=== PATIENT | female | born 1970 | race Caucasian/White ===

== ENCOUNTER 2023-07-28 22:31 | Emergency (ER) | payer OTHER, SELFPAY ==
--- NOTE | ~2023-07-28 | US_ITS ---
EXAMINATION: US ABDOMEN LIMITED CLINICAL INFORMATION: Pain.. COMPARISON: None available. TECHNIQUE: Real-time imaging of the right upper quadrant abdominal viscera. FINDINGS: PANCREAS: Not assessed. LIVER: The visualized portions of the liver are within normal limits. There is no evidence for intrahepatic biliary duct dilatation GALLBLADDER: The gallbladder is normally distended. Numerous mobile gallstones are noted. There is no gallbladder wall thickening or pericholecystic fluid. COMMON BILE DUCT: Normal in caliber measuring 0.2 cm in diameter. RIGHT KIDNEY: The visualized right kidney is unremarkable. FREE FLUID: None. US/US abdomen limited IMPRESSION: Cholelithiasis without sonographic evidence of acute cholecystitis.
--- NOTE | 2023-07-28 22:34 | ECG_ITS ---
Test Reason : chest pain Blood Pressure : / mmHG Vent. Rate : 079 BPM Atrial Rate : 079 BPM P-R Int : 142 ms QRS Dur : 076 ms QT Int : 392 ms P-R-T Axes : 077 059 046 degrees QTc Int : 449 ms Normal sinus rhythm with sinus arrhythmia Septal infarct , age undetermined Abnormal ECG No previous ECGs available Referred By: Generic ED Physician Electronically Signed By:Gil Williamson
[2023-07-28 22:39] VITALS: BP 148/99; PULSE 77; RESP 16; TEMP 36.5; O2SAT 100; BMI 24.4
--- NOTE | 2023-07-28 23:15 | PC.NURSE ---
Pt is a 52 y/o female who presents for evaluation of epigastric pain that radiates up into chest when lying down. Pain was sudden onset this evening around 1930 hours and there has been no similar episodes reported in the past, rated 27/10. No history of gallblader problems, kidney stones, acid reflux, or NV. Pain is accompanied by some nausea and a headache that has been ongoing since yesterday. No vomiting, recent illness/fever, or trauma. Food and fluid intake WNL for pt and no problems voiding reported. No other complaints reported. Pt took Carmine and tums this evening with no relief of symptoms. Motrin yesterday for headache with no relief. Last food intake was some chicken and some soup, nothing greasing/fatty. Pt has been taking Vigovi for wt loss since October.
--- NOTE | 2023-07-28 23:24 | ED.GENADULT ---
[facility] - General Adult General Chief complaint: General Medical Stated complaint: abd pain, chest pain when reclined Time Seen by Provider: 07/28/23 23:09 Source: patient Mode of arrival: ambulatory History of Present Illness HPI narrative: 52-year-old female who presents with onset epigastric pain and discomfort that began at approximately 19:30 this evening approximately 2 hours after having eaten dinner and has a significant past medical history of currently taking weight loss medication since October. She otherwise denies any underlying medical conditions, is not on prescription medications and has no family history of cardiac disease or sudden cardiac . Patient also reports a foul taste. Although she does report improved symptoms with leaning forward. Related Data Allergies Allergy/AdvReac Type Severity Reaction Status Date / Time No Known Allergies Allergy Verified 07/28/23 22:38 Review of Systems Review of Systems: Pertinent positives and negatives as stated in the [facility] Past Medical History Source: nursing notes reviewed Onset Date is defined in the Problem List Problems that require an onset date and time if occurred within 24 hrs of arrival to the ED Aortic Dissection and Rupture; Neurologic impairment; Cardiopulmonary Arrest; Endotracheal Intubation; Insertion or Replacement of Mechanical Circulatory Assist Device Social History Social History Advance Directives: No Advance Directives Information Provided: Yes Physical Exam ED Vital Signs: Vital Signs - 24 hr 07/28/23 22:39 Temperature 97.7 F Pulse Rate 77 Respiratory Rate 16 Blood Pressure 148/99 H Pulse Oximetry 100 Oxygen Delivery Method Room Air BMI result Body Mass Index 24.4 VITAL SIGNS: Reviewed. GENERAL: Well developed, well nourished, in no acute distress. HEAD: Normocephalic/atraumatic EYES: PERRLA, EOMI EARS: Ext canals without abnormality NOSE: Nares patent bilateral OROPHARYNX: no oral lesions noted, posterior pharynx clear NECK: Supple, no adenopathy LUNGS: Normal breath sounds. No adventitious sounds or accessory muscle use. SpO2<100> CARDIOVASCULAR: Regular rate and rhythm without noted murmurs ABDOMEN: Soft, Epigastric/RUQ Pain, non-distended with bowel sounds. MUSCULOSKELETAL: No tenderness, deformities, or effusions noted on gross inspection. EXTREMITIES: No cyanosis, clubbing or edema. SKIN: Inspection of the skin reveals no rashes NEUROLOGIC: Alert and oriented x 4. Strength and sensation to light touch were grossly intact x 4. BEDSIDE ULTRASOUND: Distended gallbladder with stones appreciated, no thickened gallbladder wall or pericholecystic fluid noted, Correa's negative. Medical Decision Making Medical Decision Making [facility] Narrative: 2315: 52-year-old female with history and clinical presentation, DDX: GERD, cholecystitis, pancreatitis, less likely ACS or choledocholithiasis. Reviewed all investigations and hematologic indices are negative for leukocytosis/thrombocytopenia/anemia. Chemistry indices do not demonstrate an KANG neither do they show electrolyte abnormalities. There is a subtle elevation of transaminases although this could be attributable to either fatty liver or patient having experienced a Mirizzi syndrome that resolved. Patient's pain has improved in ultrasound consistent with cholelithiasis and no sonographic evidence of cholecystitis. High sensitivity troponin is undetectable and there are no acute findings on EKG. Fell testing negative for COVID. Differential Diagnosis Differential Diagnoses: The differential diagnosis associated with the presentation includes Please see the discussion above Admission/Observation Consideration of admission/observation: Escalation of care including admission/observation considered Please see the discussion above Lab Data [facility] Lab Attestation statement: I reviewed the patient's lab results. Please see the discussion above 07/28/23 23:28 07/28/23 23:28 Labs: Lab Results 07/28/23 07/29/23 Range/Units 23:28 00:14 WBC 9.5 (4.8-10.8) X10*3/uL RBC 4.35 (4.20-5.50) X10*6/uL Hgb 13.5 (12.0-16.0) g/dl Hct 38.2 (37.0-47.0) % MCV 87.8 (80.0-98.0) fL MCH 31.0 (27.0-33.0) pg MCHC 35.3 H (31.0-35.0) g/dl RDW 11.5 (11.0-16.0) % Plt Count 233 (160-400) X10*3/uL MPV 8.7 L (9.4-12.3) fL Immature Gran % (Auto) 0.3 (0.0-0.4) % Neut % (Auto) 77.9 H (45-73) % Lymph % (Auto) 13.8 L (20-40) % [place] % (Auto) 7.0 (2-11) % Eos % (Auto) 0.6 (0-4) % Baso % (Auto) 0.4 (0-2) % Lymph # (Auto) 1.3 (1.2-4.9) X10*3/uL [place] # (Auto) 0.7 (0.1-1.2) X10*3/uL Eos # (Auto) 0.1 (0.0-0.4) X10*3/uL Baso # (Auto) 0.0 (0.0-0.2) X10*3/uL Abs Immat Gran (auto) 0.03 (0.00-0.03) X10*3/uL Absolute Neuts (auto) 7.4 (2.0-8.3) x10*3/uL Absolute Nucleated RBC 0.000 (0.0-0.012) X10*3/uL Nucleated RBC % (auto) 0.0 (0.0-0.2) /100WBC Sodium 141 (135-145) mmol/L Potassium 3.3 (3.3-5.1) mmol/L Chloride 104 (96-108) mmol/L Carbon Dioxide 26 (22-29) mmol/L Anion Gap 14 (12-20) BUN 17 H (9-16) mg/dL Creatinine 0.82 (0.5-1.4) mg/dL Estim Creat Clear Calc 64.9 Estimated GFR > 60 Random Glucose 111 (60-115) mg/dL Calcium 9.8 (8.4-10.2) mg/dL Total Bilirubin 0.7 (0.0-1.0) mg/dL AST 77 H (5-31) U/L ALT 53 H (0-31) U/L Alkaline Phosphatase 45 (39-117) U/L Troponin I High Sens < 2.7 (<3.5-17.0) ng/L Total Protein 7.3 (6.5-8.0) g/dL Albumin 4.4 (3.5-5.0) g/dL Lipase 63 (8-78) U/L COVID-19 (FLY) Negative (Negative) COVID-19 Clin Com See Note Independent Interpretation I performed an independent interpretation of an: EKG Interpretation: Normal sinus rhythm, HR-79, no STEMI, WI/QRS/QTC is within normal limits. Radiology Impression Discussion of test interpretation with radiology: I have reviewed the radiologist's reading. Radiologist Impression: Please see the discussion above Discharge Plan Discharge Clinical Impression: Biliary colic, Cholelithiasis Patient Disposition: Home, Self-Care Instructions: Biliary Colic (ED), Gallstones (ED) Additional Instructions: Recommend limiting fat consumption as this will contribute to increased gallbladder activity. I have included a referral for you to follow-up with general surgery, please call the office 1st thing in the morning to set up an appointment for re-evaluation further outpatient management. Return to the ER if you experience any worsening of your symptoms. Referrals: Anjel Melendez MD [Physician] -
[2023-07-28 23:32] LABS: MANUAL DIFF FLAG NO
[2023-07-28 23:33] LABS: Basophils Percent Auto 0.4 % (0-2); Eosinophils Absolute Auto 0.1 X10*3/uL (0.0-0.4); Eosinophils Percent Auto 0.6 % (0-4); Hematocrit 38.2 % (37.0-47.0); Hemoglobin 13.5 g/dl (12.0-16.0); Imm Gran Abs Auto 0.03 X10*3/uL (0.00-0.03); Imm Gran Pct Auto 0.3 % (0.0-0.4); Lymphocytes Absolute Auto 1.3 X10*3/uL (1.2-4.9); Lymphocytes Percent Auto 13.8 % (20-40); Mean Corpuscular HGB Conc 35.3 g/dl (31.0-35.0); Mean Corpuscular Volume 87.8 fL (80.0-98.0); Mean Platelet Volume 8.7 fL (9.4-12.3); Monocytes Absolute Auto 0.7 X10*3/uL (0.1-1.2); Neutrophils Absolute Auto 7.4 x10*3/uL (2.0-8.3); Neutrophils Percent Auto 77.9 % (45-73); Platelet Count 233 X10*3/uL (160-400); Red Blood Count 4.35 X10*6/uL (4.20-5.50); Red Cell Distribution Width 11.5 % (11.0-16.0); White Blood Count 9.5 X10*3/uL (4.8-10.8)
[2023-07-28 23:47] LABS: Alanine Aminotransferase 53 U/L (0-31); Albumin Level 4.4 g/dL (3.5-5.0); Alkaline Phosphatase 45 U/L (39-117); Anion Gap 14 (12-20); Aspartate Amino Transferase 77 U/L (5-31); Bilirubin Total 0.7 mg/dL (0.0-1.0); Blood Urea Nitrogen 17 mg/dL (9-16); Calcium 9.8 mg/dL (8.4-10.2); Carbon Dioxide 26 mmol/L (22-29); Chloride 104 mmol/L (96-108); Creatinine Clr Calc Pharmacy 64.9; Estimated Glomerular Filt Rate > 60; Glucose Random 111 mg/dL (60-115); Lipase 63 U/L (8-78); Potassium 3.3 mmol/L (3.3-5.1); Sodium 141 mmol/L (135-145); Total Protein 7.3 g/dL (6.5-8.0)
[2023-07-28 23:59] LABS: Troponin-I High Sensitivity < 2.7 ng/L (<3.5-17.0)
[2023-07-29 00:38] LABS: COVID-19 Test Negative (Negative); IDNOW Serial# 08D9AD1C
--- NOTE | 2023-07-29 01:30 | PC.NURSE ---
Pt OOB to use the bathroom as desired, ambulates with a steady gait. remains at the bedside.
== END 2023-07-29 02:10 | disposition home or self-care (01) ==
PROVIDERS: Emergency Provider Student in an Organized Health Care Education/Training Program
DX: K80.50 Calculus of bile duct without cholangitis or cholecystitis without obstruction (principal); R10.13 Epigastric pain; R07.89 Other chest pain; I49.8 Other specified cardiac arrhythmias; Z11.52 Encounter for screening for COVID-19; Z79.899 Other long term (current) drug therapy
CPT/HCPCS: 36415; 76705; 80053; 83690; 84484; 85025; 87635; 93005; 99283; 99284

== ENCOUNTER → 2023-07-28 22:34 | Outpatient (BNV) | payer OTHER, SELFPAY | PROVIDERS: Emergency Provider Student in an Organized Health Care Education/Training Program; Visit Provider Internal Medicine Cardiovascular Disease | DX: R94.31 Abnormal electrocardiogram [ECG] [EKG] (principal); R07.9 Chest pain, unspecified | CPT/HCPCS: 93010 ==

== ENCOUNTER 2023-08-02 08:58 | Outpatient (AMB) | payer OTHER, SELFPAY ==
--- NOTE | 2023-08-02 09:01 | A.OFFVIS_ITS ---
Intake Vital Signs 3 08/02/23 09:11 Height 5 ft 3 in Weight 140 lb BMI 24.8 BP 140/71 H Blood Pressure Location Lt brachial Position Sitting Intake Visit Reasons: cholelithiasis Intake Note: Patient is seen in office for ER follow up visit, following cholelithiasis. Pt c/o: abdominal aches, some nausea, denies vomit, constipation, diarrhea, onset since ED visit, no prior abdominal surgeries ER/CT: 07/31/23 Enginehouse Brakeman Required: No Accompanied by: Self / Same As Patient Allergies Sulfa (Sulfonamide Antibiotics) Allergy (Mild, Verified 08/02/23 09:22) Rash Medication List - Last Reconciled 08/02/23 by Robbin Simon MD No Known Home Meds HPI HPI Comments 2 History of Present Illness0 Details 52-year-old female patient presenting wi th complaints of abdominal pain in the epigastrium radiating into the chest subsequently evaluated in the emergency department for chest pain. During the workup the patient was found to have multiple gallstones within the gallbladder felt to have symptomatic cholelithiasis. She denied a previous episode of similar pain. She was recently on Wegovy for approximately 9 months and lost 26 lb. She is with 2 adult daughters. Family history is significant for father having a history of acute cholecystitis requiring cholecystectomy. She currently feels improved but still has some queasiness in the right upper quadrant. She denies nausea, vomiting, fever or chills. She has been off the Wegovy for proximally 1 month [facility] Family History Father Hodgkin disease Social History Alcohol intake: current Alcohol intake frequency: holidays/special occasions only Patient Tobacco Use Status: Never used Tobacco Review of Systems Const All systems reviewed & are unremarkable except as noted in HPI and below GI Reports abdominal pain, Reports belching, Denies diarrhea, Denies nausea, Denies vomiting and Denies hematemesis Physical Exam Vital Signs: Last Vital Signs BP 140/71 H 08/02/23 09:11 BMI result Body Mass Index 24.8 Const General: cooperative and no acute distress Nutritional Appearance: well nourished Orientation/consciousness: patient oriented x3 Limitations: no limitations HEENT Head: Yes normocephalic and Yes atraumatic Ears: hearing grossly normal bilaterally Resp Effort & Inspection: normal respiratory effort, no audible wheezes, no cough and no respiratory distress Cardio Jugular venous distension: no JVD GI Inspection: Yes normal to inspection Palpation (GI): Soft to palpation, Tenderness to palpation present (GI) in the RUQ; Correa's sign negative, no guarding and not rigid Percussion: Yes normal to percussion Auscultation: normal bowel sounds Rectal Exam - Female: deferred Abdomen image: 2 1. Site of tenderness right upper quadrant Skin Other: Warm, dry, no rash Neuro General: patient oriented x3 Extrem General: Yes no clubbing, cyanosis or edema Assessment & Plan Assessment & Plan (1) Symptomatic cholelithiasis: Code(s): K80.20 - Calculus of gallbladder without cholecystitis without obstruction Plan 52-year-old female patient presenting with complaints of epigastric abdominal pain radiating into the chest found on workup to have cholelithiasis. On examination today the patient does have some tenderness in the right upper quadrant consistent with symptomatic cholelithiasis. Ultrasound of the abdomen confirmed multiple gallstones within the gallbladder without wall thickening or pericholecystic fluid. Common bile duct is normal. We discussed management of the cholelithiasis including diet restriction with low-fat food verses elective laparoscopic or possible open cholecystectomy. After discussion of the procedure, risks, and alternatives, she consents to the laparoscopic or possible open cholecystectomy. This will be scheduled following her vacation, at her earliest convenience. Coding Level of Care Code New Pt Level 4 (06513) Diagnoses Symptomatic cholelithiasis K80.20
[2023-08-02 09:11] VITALS: BP 140/71; BMI 24.8
== END 2023-08-02 09:30 | disposition home or self-care (01) ==
PROVIDERS: PCP Family Medicine; Visit Provider Surgery
DX: K80.20 Calculus of gallbladder without cholecystitis without obstruction (principal)
CPT/HCPCS: 99204

== ENCOUNTER → 2023-08-02 08:58 | Outpatient (BNVA) | payer OTHER, SELFPAY | PROVIDERS: PCP Family Medicine; Visit Provider Surgery ==

== ENCOUNTER 2023-08-28 06:57 | Day surgery (SDC) | payer OTHER, SELFPAY ==
[2023-08-22 15:11] VITALS: BMI 24.3
[2023-08-28] VITALS (11 sets, daily range): BP systolic 113–134; BP diastolic 66–84; PULSE 82–95; RESP 14–16; TEMP 36.2–36.9; O2SAT 98–100; BMI 24.8
--- NOTE | 2023-08-28 07:36 | MHC.SHP ---
Pre-Procedural Eval Section A - 24 Hr Update-Section A only Date of Service: 08/28/23 The patient is an INPATIENT: No Changes since office visit: Yes Patient answered all questions; No Cold of Flu in the past 2 weeks, No New Medical Problems and No Changes in Medication The patient has been examined within 24 hours of the surgical procedure. The History & Physical has been completed within 30 days and I have reviewed it.: Yes Section B - Complete if H&P > 30 days Chief Complaint: Calculus of gallbladder without cholecystitis with Allergies: Allergies Allergy/AdvReac Type Severity Reaction Status Date / Time Sulfa (Sulfonamide Allergy Mild Rash Verified 08/02/23 09:22 Antibiotics) Plan Diagnosis/Plan: Unchanged I have reviewed the history and physical and performed a pertinent physical examination on my patient. No changes have occurred unless specified. Time Spent With Patient Time: Total time managing care of this patient today ____ minutes.
[2023-08-28] MEDS: Lactated Ringers 1,000 ML 100 ML IVCONT (07:45)
--- NOTE | 2023-08-28 08:40 | P.CONAN_ITS ---
[facility] Active Problems Active Problems: All Active Problems (Updated 08/22/23 @ 15:07 by Ellen Castellon RN) Symptomatic cholelithiasis (Acute) Past Medical History Medical History Weight loss Symptomatic cholelithiasis Patient : No Family History Family History Father Hodgkin disease Family history of problems with anesthesia: No Surgical History Surgical History History of esophagogastroduodenoscopy (EGD) Hx of tubal ligation Hx of laparoscopy History of Problems with Anesthesia: No Social History Social History Are you a primary senior care provider to a significant other at home: No Do you presently have visiting nurse or other home services: No Alcohol intake: current Alcohol intake frequency: holidays/special occasions only Patient Tobacco Use Status: Never used Tobacco Use of substances other than those prescribed or required for medical reasons: No Have you been hit, kicked, punched, or otherwise hurt by someone within the past year? If so, by whom?: No Are you DNR?: No Advance Directives: No Advance Directives Information Provided: Yes Advance Directives on File: No Recently lost weight without trying: No Eating poorly because of decreased appetite: No Nutrition Risks: No Nutritional Risk Patient : No (N/A) Poor oral hygiene: No Meds Allergies Allergy/AdvReac Type Severity Reaction Status Date / Time Sulfa (Sulfonamide Allergy Mild Rash Verified 08/02/23 09:22 Antibiotics) Active Medications: Current Medications Fentanyl (Fentanyl Citrate/Pf 100 Mcg/2 Ml Vial) 25 mcg IVPUSH Q5M PRN; Protocol PRN Reason: Pain, Moderate(Pain Scale 4-6) Lactated Ringer's (Lr) 1,000 mls @ 100 mls/hr IVCONT .Q10H FILEMON Last Admin: 08/28/23 07:45 Dose: 100 mls/hr Ondansetron HCl (Ondansetron Hcl 4 Mg/2 Ml Vial) 4 mg IVPUSH ONCE PRN PRN Reason: Nausea and Vomiting Home Medications Medication Instructions Recorded Confirmed Last Taken Type acetaminophen 500 mg tablet 1,000 mg PO Q6H PRN Pain 08/22/23 08/28/23 Unknown History ibuprofen 200 mg tablet (Advil) 400 mg PO Q6H PRN Pain 08/22/23 08/28/23 Unknown History multivitamin 1 tab PO DAILY 08/22/23 08/28/23 Unknown History Exam Height,Weight and Vital Signs: Height 5 ft 3 in Weight 63.503 kg Last Vital Signs Temp 98.4 F 08/28/23 07:19 Pulse 82 08/28/23 07:19 Resp 16 08/28/23 07:19 BP 113/71 08/28/23 07:19 Pulse Ox 100 08/28/23 07:19 O2 Del Method Room Air 08/28/23 07:19 Airway Mallampati Class: I TM Dist: >3cm Neck ROM: Full Loose/Missing/Broken Teeth: No Heart: rrr Lungs: clear Assessment and Plan Final Anesthetic Review Family History of Problems with Anesthesia: No History of Problems with Anesthesia: No NPO: Yes ASA Class: II Final Preanesthetic Review: No Changes in Pt Med Stat, Meds/Allgs Chart Reviewed, Consent Obtained/Reviewed and Anes Risks/Benef Reviewed Patient Risk: Low Procedure Risk: Low Anesthetic Plan Anesthetic Plan: GA Disposition: Standard PACU
--- NOTE | 2023-08-28 09:17 | W.PM.OPN ---
Operative Note Operative Note Date of Service: 08/28/23 Narrative: Preoperative diagnosis: Symptomatic cholelithiasis Postoperative diagnosis: Same Procedure: Laparoscopic cholecystectomy Surgeon: Robbin Simon MD Partnership Development Manager: CHRISTIAN Michael, LINDA Salamanca Anesthesia: General endotracheal Indications for procedure: 52-year-old female patient presenting with complaints of epigastric and right upper quadrant abdominal pain associated with fatty food intake. Patient was found to have symptomatic cholelithiasis. Operative findings: Mildly inflamed gallbladder with adhesions suggestive of chronic cholecystitis. Specimen: gallbladder Estimated blood loss: Less than 2 mL Complications: None Procedure details: Patient was brought to the OR and placed in a supine position. After administering general anesthesia the patient's abdomen was prepped with ChloraPrep and draped in a sterile fashion. A surgical time-out was called the consent confirmed. Patient received preoperative antibiotics and Venodyne boots were in place. Local anesthesia consisting of 0.5% Sensorcaine without epinephrine was infiltrated in a periumbilical region. A 5 mm incision was made above the umbilicus in a transverse fashion. The Veress needle was then inserted while elevating abdominal cavity with towel clips. After positive drop test the abdomen was insufflated to a pressure of 15 mm of mercury. The Veress needle was then removed and a 5 mm trocar inserted. The camera was inserted in the abdomen explored. A 12 mm trocar was then placed in the epigastrium. Two 5 mm trocars placed in the right upper quadrant by the neurosurgical physician assistant. The patient was placed in reverse Trendelenburg positioning and rotated to the left. The gallbladder was grasped with the fundus and retracted cephalad by the neurosurgical physician assistant. The infundibulum was then grasped and retracted away from the liver bed, also by the neurosurgical physician assistant. The Dolphin dissected was then used by the surgeon to dissect the peritoneum off the infundibulum to reveal the junction with the cystic duct. Cystic artery was noted slightly medial and posterior to the cystic duct. After obtaining a critical view the cystic duct was doubly clipped and divided. The cystic artery was then doubly clipped and divided. The gallbladder was then dissected off the liver bed using electrocautery with an L hook. Hemostasis was assured all times using the electrocautery. When the gallbladder is completely dissected off the liver bed was placed in an Endo-Catch bag and brought out through the epigastric incision. The gallbladder was sent to pathology for further examination. The abdomen was then re-examined. The liver bed was irrigated and suctioned dry. No bleeding or bile leak could be identified. CO2 was then evacuated and all trocars removed. Fascia was closed at the epigastric incision using a [id number] 0 Polysorb suture. Skin was closed in all incisions using a subcuticular 4 0 Polysorb suture by both the surgeon and neurosurgical physician assistant. Sterile dressings consisting of Steri-Strips, 2 x 2 gauze, and Tegaderm were then applied. The patient tolerated the procedure well. Sponge instrument and needle counts reported as correct. The patient was transferred to PACU in stable condition.
[2023-08-28] MEDS: fentaNYL citrate/PF 100 MCG/2 ML VIAL 25 MCG IVPUSH ×4 (10:24→10:50)
[2023-08-28] MEDS: oxyCODONE HCl Immed Release 5 MG TABLET PO (10:55)
[2023-08-28] MEDS: Acetaminophen 1,000 MG/100 ML PIGGYBACK 400 MG IV (10:56)
== END 2023-08-28 12:43 | disposition home or self-care (01) ==
PROVIDERS: Visit Provider Surgery
PROC: 0FT44ZZ Resection of Gallbladder, Percutaneous Endoscopic Approach (ICD-10-PCS; CPT 47562; principal; 2023-08-28 08:40)
DX: K80.10 Calculus of gallbladder with chronic cholecystitis without obstruction (principal); K82.8 Other specified diseases of gallbladder; Z79.1 Long term (current) use of non-steroidal anti-inflammatories (NSAID); Z79.899 Other long term (current) drug therapy; Z88.2 Allergy status to sulfonamides; Z98.890 Other specified postprocedural states
CPT/HCPCS: 47562; 88304; J0131; J1100; J2250; J2405; J2704; J2795; J3010

== ENCOUNTER → 2023-08-28 06:57 | Outpatient (BNV) | payer OTHER, SELFPAY | PROVIDERS: Visit Provider Surgery | DX: K80.20 Calculus of gallbladder without cholecystitis without obstruction (principal) | CPT/HCPCS: 47562 ==

== ENCOUNTER 2023-09-06 09:05 | Outpatient (AMB) | payer OTHER, SELFPAY ==
--- NOTE | 2023-09-06 09:11 | A.OFFVIS_ITS ---
Intake Vital Signs 09/06/23 09:17 Height 5 ft 3 in Weight 137 lb BMI 24.3 BP 143/83 H Blood Pressure Location Lt brachial Position Sitting Pulse 105 H Intake Visit Reasons: S/p Lap or poss open cholecystectomy Intake Note: Patient is seen in office for post op assessment post laparoscopic cholecystectomy. Pt c/o: admits to sore and tender, denies any other concenrs Op:08/28/23 Network Consultant Required: No Accompanied by: Self / Same As Patient Allergies Sulfa (Sulfonamide Antibiotics) Allergy (Mild, Verified 08/02/23 09:22) Rash HPI HPI Comments History of Present Illness Details 52-year-old female patient returning [address] following a laparoscopic cholecystectomy performed on 08/28/2023. This revealed a mildly inflamed gallbladder with cholelithiasis. She tolerated the procedure well but does still report some epigastric abdominal tenderness. She denies nausea, vomiting, diarrhea or constipation. [facility] Medical History Weight loss Symptomatic cholelithiasis Surgical History Hx laparoscopic cholecystectomy (08/28/23) History of esophagogastroduodenoscopy (EGD) Hx of tubal ligation Hx of laparoscopy Family History Father Hodgkin disease Social History Are you a primary health care liaison to a significant other at home: No Do you presently have visiting nurse or other home services: No Alcohol intake: current Alcohol intake frequency: holidays/special occasions only Comment: counts correct Patient Tobacco Use Status: Never used Tobacco Physical Exam Vital Signs: Last Vital Signs Pulse 105 H 09/06/23 09:17 BP 143/83 H 09/06/23 09:17 BMI result Body Mass Index 24.3 Const General: no acute distress Resp Effort & Inspection: normal respiratory effort GI Other: Soft and nondistended. Trocar incisions are clean, dry, and intact without ecchymosis or erythema. Skin Other: Warm, dry, no rash Assessment & Plan Assessment & Plan (1) Symptomatic cholelithiasis: Code(s): K80.20 - Calculus of gallbladder without cholecystitis without obstruction Plan Patient returns 1 week following laparoscopic cholecystectomy for symptomatic cholelithiasis. Her wounds are clean, dry, and intact. She has requesting an additional prescription for the epigastric abdominal pain. Examination reveals no evidence of wound infection, hernia, or hematoma. She should continue to avoid lifting greater than 10 lb for 1 more week and avoid greasy/fried foods for 4 more weeks. She should follow up as needed. Medications: Refilled hydrocodone-acetaminophen 5-325 mg Partial Fill upon patient request. 1 tab PO Q8H PRN 10 tabs 0RF pain (scale score 7-10) K80.20 - Calculus of gallbladder without cholecystitis without obstruction Coding Level of Care Code Global (34073) Diagnoses Symptomatic cholelithiasis K80.20
[2023-09-06 09:17] VITALS: BP 143/83; PULSE 105; BMI 24.3
== END 2023-09-06 09:26 | disposition home or self-care (01) ==
PROVIDERS: PCP Family Medicine; Visit Provider Surgery
DX: K80.20 Calculus of gallbladder without cholecystitis without obstruction (principal)
CPT/HCPCS: 99024

== ENCOUNTER → 2023-09-06 09:05 | Outpatient (BNVA) | payer OTHER, SELFPAY | PROVIDERS: PCP Family Medicine; Visit Provider Surgery ==

== ENCOUNTER 2024-05-26 16:15 | Inpatient (IN) | payer OTHER, SELFPAY ==
--- NOTE | ~2024-05-26 | MR_ITS ---
EXAMINATION: MRCP. CLINICAL INFORMATION: Abdominal pain. Liver transaminases. COMPARISON: No priors. Correlated to Limited ultrasound dated May 26, 2024 reported cholecystectomy. TECHNIQUE: Coronal and axial T2 HASTE. Coronal and axial T2 fat sat HASTE. Coronal oblique T2 fast spin echo single/. MRCP radial T2 fat sat. Axial in and out of phase 3-D. 3-D SPACE MRCP triggered. FINDINGS: Common bile duct measures 4 mm maximal diameter. No intraluminal signal abnormalities. No intrahepatic biliary ductal dilatation. Liver measures 14 cm. No gross signal abnormality. There is a 4 mm lobulated hypointense T1 and hyperintense T2 in the left hepatic lobe. Flow-void signal within the main portal veins intrahepatic portion of the IVC is normal. 4 mm hyperintense T2 signal in the posterior uncinate process region.. No main pancreatic ductal dilatation. No peripancreatic fluid collection. Spleen measures 9 cm. No focal signal abnormality. No nodular lesions in the adrenal glands. No hydronephrosis in either kidney. No gross signal abnormality in the kidney. Probable subcentimeter cyst, left kidney. Abundant stool. No ascites. No aneurysm, abdominal aorta. No gross lymphadenopathy in the retroperitoneum. S-shaped curvature of the thoracolumbar spine which could be positional. Appendix is normal. MR/MR MRCP IMPRESSION: No choledocholithiasis 4 mm cystic lesion, left hepatic lobe. Questionable 4 mm cystic lesion, uncinate process of the pancreas. Electronically signed by: Javed Francis MD 05/28/2024 11:38 AM EST
--- NOTE | ~2024-05-26 | US_ITS ---
EXAMINATION: US ABDOMEN LIMITED CLINICAL INFORMATION: Right upper quadrant pain. COMPARISON: Ultrasound abdomen dated 07/29/2023. TECHNIQUE: Real-time imaging of the right upper quadrant abdominal viscera. FINDINGS: PANCREAS: The pancreas is normal in appearance. LIVER: The liver is normal in size. The liver contour is normal. Parenchymal echogenicity is normal. No focal hepatic lesion. There is no intrahepatic biliary duct dilatation seen. GALLBLADDER: The gallbladder is surgically absent. COMMON BILE DUCT: Normal in caliber measuring 0.8 cm in diameter. RIGHT KIDNEY: Normal. No hydronephrosis. No renal calculi or focal parenchymal lesions. The kidney measures 9.4 cm in maximum dimension. FREE FLUID: None. US/US abdomen limited IMPRESSION: No acute finding. Status post cholecystectomy. The common bile duct is normal in caliber for the postcholecystectomy state. Electronically signed by: Rufino Cardoso DO 05/26/2024 08:24 [place] [facility] [place]
--- NOTE | 2024-05-26 16:27 | ED.ABDPAIN ---
HPI - Abdominal Pain General Chief Complaint: Abdominal Pain Stated Complaint: Abnormal labs Time Seen by Provider: 05/26/24 21:50 Related Data Home Medications ?Medication ?Instructions ?Recorded ?Confirmed acetaminophen 500 mg tablet 1,000 mg PO Q6H PRN Pain 08/22/23 08/28/23 ibuprofen 200 mg tablet (Advil) 400 mg PO Q6H PRN Pain 08/22/23 08/28/23 multivitamin 1 tab PO DAILY 08/22/23 08/28/23 Previous Rx's ?Medication ?Instructions ?Recorded hydrocodone 5 mg-acetaminophen 325 1 tab PO Q8H PRN pain (scale score 09/06/23 mg tablet 7-10) #10 tabs Allergies Allergy/AdvReac Type Severity Reaction Status Date / Time Sulfa (Sulfonamide Allergy Mild Rash Verified 05/26/24 16:29 Antibiotics) PMFSH Past Medical History Medical History Weight loss Symptomatic cholelithiasis Surgical History Hx laparoscopic cholecystectomy (08/28/23) History of esophagogastroduodenoscopy (EGD) Hx of tubal ligation Hx of laparoscopy Family History Family History Father Hodgkin disease Social History Social History Are you a primary physician locums urgent care to a significant other at home: No Do you presently have visiting nurse or other home services: No Alcohol intake: current Alcohol intake frequency: 0-2 drinks per day Comment: counts correct Patient Tobacco Use Status: Never used Tobacco Smoked in Last 30 Days: No Use of substances other than those prescribed or required for medical reasons: No Advance Directives: Yes Advance Directives Information Provided: No Advance Directives on File: No Do you have a plan to hurt others: No Plan Patient : No Physical Exam ED Vital Signs: Vital Signs - 24 hr 05/26/24 16:28 05/26/24 21:58 Temperature 98.4 F 98.1 F Pulse Rate 120 H 81 Respiratory Rate 20 18 Blood Pressure 196/103 H 180/93 H Pulse Oximetry 100 99 Oxygen Delivery Method Room Air Room Air BMI result Body Mass Index 25.5 Course Course Course Narrative: This is a Rapid Medical Examination (RME) performed by Carlos Eduardo Vasques PA-C in triage. Full HPI, ROS, assessment and treatment plan per primary provider in the Main ED. 53 yo female with history of cholecystectomy in August by Dr. Simon presents to the ER for evaluation of abdominal pain & abdominal pain for the last 4 days. She went to [facility] and had a CT scan that showed mild intrabiliary duct dilatation. She had LFTs that were elevated in the 500 range. She reports also having an ultrasound done and having a normal DDIMER and cardiac workup. she endorses daily ETOH use but none since Saturday when the pain started. Plan: lab workup. repeating imaging per primary provider Medical Decision Making Lab Data 05/26/24 17:45 05/26/24 17:45 Labs: Lab Results 05/26/24 05/26/24 Range/Units 17:45 22:59 WBC 7.6 (4.8-10.8) X10*3/uL RBC 4.24 (4.20-5.50) X10*6/uL Hgb 13.5 (12.0-16.0) g/dl Hct 39.0 (37.0-47.0) % MCV 92.0 (80.0-98.0) fL MCH 31.8 (27.0-33.0) pg MCHC 34.6 (31.0-35.0) g/dl RDW 12.7 (11.0-16.0) % Plt Count 195 (160-400) X10*3/uL MPV 9.1 L (9.4-12.3) fL Immature Gran % (Auto) 0.3 (0.0-0.4) % Neut % (Auto) 71.4 (45-73) % Lymph % (Auto) 18.5 L (20-40) % [place] % (Auto) 8.1 (2-11) % Eos % (Auto) 1.2 (0-4) % Baso % (Auto) 0.5 (0-2) % Lymph # (Auto) 1.4 (1.2-4.9) X10*3/uL [place] # (Auto) 0.6 (0.1-1.2) X10*3/uL Eos # (Auto) 0.1 (0.0-0.4) X10*3/uL Baso # (Auto) 0.0 (0.0-0.2) X10*3/uL Abs Immat Gran (auto) 0.02 (0.00-0.03) X10*3/uL Absolute Neuts (auto) 5.4 (2.0-8.3) x10*3/uL Absolute Nucleated RBC 0.000 (0.0-0.012) X10*3/uL Nucleated RBC % (auto) 0.0 (0.0-0.2) /100WBC Sodium 142 (135-145) mmol/L Potassium 4.0 D (3.3-5.1) mmol/L Chloride 107 (96-108) mmol/L Carbon Dioxide 27 (22-29) mmol/L Anion Gap 12 (12-20) BUN 9 (9-16) mg/dL Creatinine 0.81 (0.5-1.4) mg/dL Estim Creat Clear Calc 71.2 Estimated GFR > 60 Random Glucose 101 (60-115) mg/dL Calcium 9.6 (8.4-10.2) mg/dL Magnesium 2.1 (1.6-2.6) mg/dL Total Bilirubin 2.5 H (0.0-1.0) mg/dL Direct Bilirubin 1.8 H (0.0-0.5) mg/dL AST 696 H (5-31) U/L ALT 1411 H (0-31) U/L Alkaline Phosphatase 173 H (39-117) U/L Troponin I High Sens < 2.7 (<3.5-17.0) ng/L Total Protein 7.2 (6.5-8.0) g/dL Albumin 4.4 (3.5-5.0) g/dL Lipase 50 (8-78) U/L Urine Color Dark Yellow Urine Appearance Clear Urine pH 6.5 (5.0-9.0) Ur Specific [place] <= 1.005 (1.005-1.025) Urine Protein Negative (Neg-Trace) mg/dL Urine Glucose (UA) Negative (Negative) mg/dL Urine Ketones 15 (Negative) mg/dL Urine Blood Negative (Negative) Urine Nitrite Negative (Negative) Ur Leukocyte Esterase Trace H (Negative) Urine RBC 0-2 (0-2) /HPF Urine WBC 0-5 (0-5) /HPF Ur Squamous Epith Cells 0-2 (0-2) /HPF Urine Bacteria None Seen (None Seen) Hyaline Casts 0-2 (0-2) /LPF Discharge Plan Discharge Clinical Impression: Elevated liver enzymes Patient Disposition: Admitted As Inpatient Print Language: Turkish
[2024-05-26 16:28] VITALS: BP 196/103; PULSE 120; RESP 20; TEMP 36.9; O2SAT 100; BMI 25.5
[2024-05-26 17:47] LABS: MANUAL DIFF FLAG NO
[2024-05-26 17:54] LABS: Basophils Percent Auto 0.5 % (0-2); Eosinophils Absolute Auto 0.1 X10*3/uL (0.0-0.4); Eosinophils Percent Auto 1.2 % (0-4); Hemoglobin 13.5 g/dl (12.0-16.0); Imm Gran Abs Auto 0.02 X10*3/uL (0.00-0.03); Imm Gran Pct Auto 0.3 % (0.0-0.4); Lymphocytes Absolute Auto 1.4 X10*3/uL (1.2-4.9); Lymphocytes Percent Auto 18.5 % (20-40); Mean Corpuscular HGB Conc 34.6 g/dl (31.0-35.0); Mean Corpuscular Hemoglobin 31.8 pg (27.0-33.0); Mean Platelet Volume 9.1 fL (9.4-12.3); Monocytes Absolute Auto 0.6 X10*3/uL (0.1-1.2); Monocytes Percent Auto 8.1 % (2-11); Neutrophils Absolute Auto 5.4 x10*3/uL (2.0-8.3); Neutrophils Percent Auto 71.4 % (45-73); Platelet Count 195 X10*3/uL (160-400); Red Blood Count 4.24 X10*6/uL (4.20-5.50); Red Cell Distribution Width 12.7 % (11.0-16.0); White Blood Count 7.6 X10*3/uL (4.8-10.8)
[2024-05-26 18:25] LABS: Albumin Level 4.4 g/dL (3.5-5.0); Alkaline Phosphatase 173 U/L (39-117); Anion Gap 12 (12-20); Aspartate Amino Transferase 696 U/L (5-31); Bilirubin Direct 1.8 mg/dL (0.0-0.5); Bilirubin Total 2.5 mg/dL (0.0-1.0); Blood Urea Nitrogen 9 mg/dL (9-16); Calcium 9.6 mg/dL (8.4-10.2); Carbon Dioxide 27 mmol/L (22-29); Chloride 107 mmol/L (96-108); Creatinine Clr Calc Pharmacy 71.2; Estimated Glomerular Filt Rate > 60; Glucose Random 101 mg/dL (60-115); Lipase 50 U/L (8-78); Magnesium 2.1 mg/dL (1.6-2.6); Sodium 142 mmol/L (135-145); Total Protein 7.2 g/dL (6.5-8.0)
[2024-05-26 18:34] LABS: Alanine Aminotransferase 1411 U/L (0-31)
[2024-05-26 21:58] VITALS: BP 180/93; PULSE 81; RESP 18; TEMP 36.7; O2SAT 99
--- NOTE | 2024-05-26 21:58 | PC.NURSE ---
pt from home, a&ox4, respirations even and unlabored. pt reporting onset of chest pain and abdominal pain starting saturday, reports being seen at [facility] and being discharged. pt reports today her abdominal pain was severe with nausea. pt denies vomiting and diarrhea. pt abdomen tender to touch x4 quadrants. pt reports etoh use daily but reports her last drink was saturday. pt instructed for urine sample at this time. 20G placed in left ac.
[2024-05-26 23:05] LABS: Appearance Urine Clear; Color Urine Dark Yellow; Glucose Urine UA Negative (Negative); Leukocyte Esterase Urine Trace (Negative); Nitrite Urine Negative (Negative); PH 6.5 (5.0-9.0); Specific Gravity - Urine <= 1.005 (1.005-1.025); UMIC TRIGGER UACC YES; Urine Blood Negative (Negative); Urine Ketones 15 mg/dL (Negative); Urine Protein Negative (Neg-Trace)
[2024-05-26 23:08] LABS: Bacteria Urine None Seen (None Seen); Hyaline Casts Urine 0-2 /LPF (0-2); RBC Urine 0-2 /HPF (0-2); Squamous Epithelial Cell Urine 0-2 /HPF (0-2); WBC Urine 0-5 /HPF (0-5)
--- NOTE | 2024-05-26 23:25 | ED_ITS ---
HPI - Abdominal Pain General Chief Complaint: Abdominal Pain Stated Complaint: Abnormal labs Time Seen by Provider: 05/26/24 21:50 History of Present Illness HPI narrative: Patient is a 53-year-old female history of having cholecystectomy over year ago. Presented today with having abdominal pain. It has been ongoing for the last few days. Patient was seen at [facility] had a CT scan of the abdomen done 2 days prior which were grossly negative patient has the report. Also was noted to have elevated liver function tests question etiology. Patient denies taking excessive Tylenol denies any fever chills denies any coughing congestion but did have some chest pain that is worse with lying down. She is from home. No pain on urination. No shortness of breath. Related Data Home Medications ?Medication ?Instructions ?Recorded ?Confirmed acetaminophen 500 mg tablet 1,000 mg PO Q6H PRN Pain 08/22/23 08/28/23 ibuprofen 200 mg tablet (Advil) 400 mg PO Q6H PRN Pain 08/22/23 08/28/23 multivitamin 1 tab PO DAILY 08/22/23 08/28/23 Previous Rx's ?Medication ?Instructions ?Recorded hydrocodone 5 mg-acetaminophen 325 1 tab PO Q8H PRN pain (scale score 09/06/23 mg tablet 7-10) #10 tabs Allergies Allergy/AdvReac Type Severity Reaction Status Date / Time Sulfa (Sulfonamide Allergy Mild Rash Verified 05/26/24 16:29 Antibiotics) Review of Systems Review of Systems Positive abdominal pain in the epigastric area Yes all other systems are reviewed and are negative PMFSH Past Medical History Attestation statement: The following information was validated with the patient. Medical History Weight loss Symptomatic cholelithiasis Surgical History Hx laparoscopic cholecystectomy (08/28/23) History of esophagogastroduodenoscopy (EGD) Hx of tubal ligation Hx of laparoscopy Family History Family History Father Hodgkin disease Social History Social History Are you a primary acute care clinical nurse specialist to a significant other at home: No Do you presently have visiting nurse or other home services: No Alcohol intake: current Alcohol intake frequency: 0-2 drinks per day Comment: counts correct Patient Tobacco Use Status: Never used Tobacco Smoked in Last 30 Days: No Use of substances other than those prescribed or required for medical reasons: No Advance Directives: Yes Advance Directives Information Provided: No Advance Directives on File: No Do you have a plan to hurt others: No Plan Patient : No Physical Exam ED Vital Signs: Vital Signs - 24 hr 05/26/24 16:28 05/26/24 21:58 Temperature 98.4 F 98.1 F Pulse Rate 120 H 81 Respiratory Rate 20 18 Blood Pressure 196/103 H 180/93 H Pulse Oximetry 100 99 Oxygen Delivery Method Room Air Room Air BMI result Body Mass Index 25.5 Appearance: Alert. Oriented X3. No acute distress. Eyes: Pupils equal, round and reactive to light. ENT: Pharynx normal. Neck: Normal inspection. Neck supple. No lymph nodes noted. No crepitus CVS: Normal heart rate and rhythm. Pulses normal. Normal S1 and S2 Respiratory: No respiratory distress. Breath sounds normal. No Wheezing. No rales Abdomen: Soft and nontender. No rigidity. No distention. good BS x4 Skin: Skin warm and dry. Normal skin color. Normal skin turgor. Extremities: No lower extremity edema. Neurovascular intact to all extremities. No Lacerations. No Rash Neuro: Oriented X 3. No motor deficit. No sensory deficit. Moving all extermities. No slurred speech Medical Decision Making Medical Decision Making MDM Narrative: Patient is fair appearing nonacute distress having epigastric pain. I reviewed patient's CT scan report which was grossly negative for any acute evidence of obstruction abscess perforation. An ultrasound was done today. The ultrasound showed no evidence of dilated common bile duct. No choledocholithiasis. No evidence for pancreatitis. Patient's lipase was normal. In addition patient's CT scan from a couple days ago was negative. Patient's LFT however was significantly elevated. The AST was over 1400 ALT was in the 600 range. This is relatively new. Will need additional workup. Hepatitis panel was ordered. Patient's case discussed with GI. Recommend for patient to be admitted and further evaluated. Currently in stable condition. Differential Diagnosis Differential Diagnoses: The differential diagnosis associated with the presentation includes Hepatitis, sludge, Admission/Observation Consideration of admission/observation: Escalation of care including admission/observation considered Consult Healthcare Provider Management of the patient was discussed with: Hospitalist and School Bus Monitor (GI) Lab Data MDM Lab Attestation statement: I reviewed the patient's lab results. 05/26/24 17:45 05/26/24 17:45 Labs: Lab Results 05/26/24 05/26/24 Range/Units 17:45 22:59 WBC 7.6 (4.8-10.8) X10*3/uL RBC 4.24 (4.20-5.50) X10*6/uL Hgb 13.5 (12.0-16.0) g/dl Hct 39.0 (37.0-47.0) % MCV 92.0 (80.0-98.0) fL MCH 31.8 (27.0-33.0) pg MCHC 34.6 (31.0-35.0) g/dl RDW 12.7 (11.0-16.0) % Plt Count 195 (160-400) X10*3/uL MPV 9.1 L (9.4-12.3) fL Immature Gran % (Auto) 0.3 (0.0-0.4) % Neut % (Auto) 71.4 (45-73) % Lymph % (Auto) 18.5 L (20-40) % [place] % (Auto) 8.1 (2-11) % Eos % (Auto) 1.2 (0-4) % Baso % (Auto) 0.5 (0-2) % Lymph # (Auto) 1.4 (1.2-4.9) X10*3/uL [place] # (Auto) 0.6 (0.1-1.2) X10*3/uL Eos # (Auto) 0.1 (0.0-0.4) X10*3/uL Baso # (Auto) 0.0 (0.0-0.2) X10*3/uL Abs Immat Gran (auto) 0.02 (0.00-0.03) X10*3/uL Absolute Neuts (auto) 5.4 (2.0-8.3) x10*3/uL Absolute Nucleated RBC 0.000 (0.0-0.012) X10*3/uL Nucleated RBC % (auto) 0.0 (0.0-0.2) /100WBC Sodium 142 (135-145) mmol/L Potassium 4.0 D (3.3-5.1) mmol/L Chloride 107 (96-108) mmol/L Carbon Dioxide 27 (22-29) mmol/L Anion Gap 12 (12-20) BUN 9 (9-16) mg/dL Creatinine 0.81 (0.5-1.4) mg/dL Estim Creat Clear Calc 71.2 Estimated GFR > 60 Random Glucose 101 (60-115) mg/dL Calcium 9.6 (8.4-10.2) mg/dL Magnesium 2.1 (1.6-2.6) mg/dL Total Bilirubin 2.5 H (0.0-1.0) mg/dL Direct Bilirubin 1.8 H (0.0-0.5) mg/dL AST 696 H (5-31) U/L ALT 1411 H (0-31) U/L Alkaline Phosphatase 173 H (39-117) U/L Total Protein 7.2 (6.5-8.0) g/dL Albumin 4.4 (3.5-5.0) g/dL Lipase 50 (8-78) U/L Urine Color Dark Yellow Urine Appearance Clear Urine pH 6.5 (5.0-9.0) Ur Specific [place] <= 1.005 (1.005-1.025) Urine Protein Negative (Neg-Trace) mg/dL Urine Glucose (UA) Negative (Negative) mg/dL Urine Ketones 15 (Negative) mg/dL Urine Blood Negative (Negative) Urine Nitrite Negative (Negative) Ur Leukocyte Esterase Trace H (Negative) Urine RBC 0-2 (0-2) /HPF Urine WBC 0-5 (0-5) /HPF Ur Squamous Epith Cells 0-2 (0-2) /HPF Urine Bacteria None Seen (None Seen) Hyaline Casts 0-2 (0-2) /LPF Independent Interpretation I performed an independent interpretation of an: EKG (My interpretation of her EKG showed a sinus rhythm heart rate is 80 VT QRS QTC normal no acute ST segment elevation) Radiology Impression Discussion of test interpretation with radiology: I have reviewed the radiologist's reading. Independent Historian Clinical information obtained from an independent historian. History obtained from or confirmed by: Spouse External Record Review External record reviewed: Outside ED record Outpatient radiology record Discharge Plan Discharge Clinical Impression: Elevated liver enzymes Patient Disposition: Admitted As Inpatient Prescriptions: No Action multivitamin Tablet 1 tab PO DAILY acetaminophen 500 mg Tablet 1,000 mg PO Q6H PRN (Reason: Pain) ibuprofen [Advil] 200 mg Tablet 400 mg PO Q6H PRN (Reason: Pain) hydrocodone-acetaminophen 5-325 mg tablet 1 tab PO Q8H PRN (Reason: pain (scale score 7-10)) Qty: 10 0RF Rx Instructions: Partial Fill upon patient request. Print Language: Israeli
--- NOTE | 2024-05-26 23:26 | ECG_ITS ---
Test Reason : CHEST PAIN Blood Pressure : / mmHG Vent. Rate : 079 BPM Atrial Rate : 079 BPM P-R Int : 146 ms QRS Dur : 080 ms QT Int : 394 ms P-R-T Axes : 075 039 015 degrees QTc Int : 451 ms Normal sinus rhythm Cannot rule out Anteroseptal infarct (cited on or before 28-JUL-2023) Abnormal ECG When compared with ECG of 28-JUL-2023 22:39, No significant change was found Referred By: Yecenia More Electronically Signed By:DIA BENSON MD
[2024-05-26 23:47] LABS: Troponin-I High Sensitivity < 2.7 ng/L (<3.5-17.0)
[2024-05-26 23:51] VITALS: RESP 17
[2024-05-26] MEDS: HYDROmorphone HCl 0.5 MG/0.5 ML SYRINGE IVPUSH (23:51)
[2024-05-27] VITALS (7 sets, daily range): BP systolic 108–129; BP diastolic 55–75; PULSE 72–95; RESP 16–18; TEMP 36–37.4; O2SAT 97–100
[2024-05-27 00:01] LABS: Prothrombin Time 11.6 SEC (10.9-12.4)
--- NOTE | 2024-05-27 00:06 | PM.IMHP ---
History of Present Illness Date of Service: 05/27/24 Chief Complaint: Abdominal Pain This is a 53-year-old female with history of cholecystectomy who presents to the emergency department for evaluation of abdominal pain. Patient states she had sudden onset of sharp abdominal pain which was intermittent and radiated to the chest on 05/24. Patient went to [facility] ER where CT scan was without any acute abnormality. Patient's liver enzymes were in the 500 and she was discharged from the ER to follow-up with PCP. Patient tried to make an appointment with PCP but on the day of presentation again had 2 episodes of sharp upper abdominal discomfort which were intermittent and radiated to the chest. Also had symptoms of gastroesophageal reflux disease. She did not hear back from her PCP and hence decided to come to the ER at [facility]. No history of similar symptoms in the past. Had cholecystectomy in August 2023. Also has associated nausea. Minimal p.o. intake on the day of presentation which she was able to tolerate. No vomiting or diarrhea. No fever, chills, chest pain, palpitations, shortness of breath, changes in urinary or bowel habits. Patient drinks 1 wine every night. Denies any history of alcohol use disorder. No history of autoimmune disorder. In the emergency department, AST found to be 696, ALT 1411, alkaline phosphatase 173. Gastroenterology was consulted who requested admission Review of Systems Constitutional: Constitutional: Reports fatigue and Reports malaise Cardiovascular: Cardiovascular: Reports no additional cardiovascular complaints Respiratory: Respiratory: Reports no additional respiratory complaints Gastrointestinal: Gastrointestinal: Reports abdominal pain and Reports nausea Genitourinary: Genitourinary: Reports no additional female genitourinary complaints Endocrine: Endocrine: Reports fatigue [facility] Medical History Weight loss Symptomatic cholelithiasis Family History Father Hodgkin disease Surgical History Hx laparoscopic cholecystectomy (08/28/23) History of esophagogastroduodenoscopy (EGD) Hx of tubal ligation Hx of laparoscopy Social History Are you a primary health and social care teacher to a significant other at home: No Do you presently have visiting nurse or other home services: No Alcohol intake: current Alcohol intake frequency: 0-2 drinks per day Comment: counts correct Patient Tobacco Use Status: Never used Tobacco Smoked in Last 30 Days: No Use of substances other than those prescribed or required for medical reasons: No Advance Directives: Yes Advance Directives Information Provided: No Advance Directives on File: No Do you have a plan to hurt others: No Plan Patient : No Meds Allergies Allergy/AdvReac Type Severity Reaction Status Date / Time Sulfa (Sulfonamide Allergy Mild Rash Verified 05/26/24 16:29 Antibiotics) Home Medications ?Medication ?Instructions ?Recorded ?Confirmed ?Last Taken ?Type acetaminophen 500 mg tablet 1,000 mg PO Q6H PRN Pain 08/22/23 08/28/23 Unknown History ibuprofen 200 mg tablet (Advil) 400 mg PO Q6H PRN Pain 08/22/23 08/28/23 Unknown History multivitamin 1 tab PO DAILY 08/22/23 08/28/23 Unknown History Physical Exam Vital Signs and Narrative: Vital Signs: Last Vital Signs Temp 98.1 F 05/26/24 21:58 Pulse 81 05/26/24 21:58 Resp 17 05/26/24 23:51 BP 180/93 H 05/26/24 21:58 Pulse Ox 99 05/26/24 21:58 O2 Del Method Room Air 05/26/24 21:58 BMI result Body Mass Index 25.5 Middle-aged female lying in bed in no distress Neck supple, no JVD Regular rate and rhythm, S1-S2 heard Regular breath sounds bilaterally, no wheezing or crackles appreciated Abdomen with generalized tenderness, no rigidity, no rebound tenderness Patient is awake, alert and oriented to self, place, time and person ; no focal motor deficit Psych: Normal mood No pedal edema Results Labs 05/26/24 17:45 05/26/24 17:45 Labs: Laboratory Results - last 24 hr 05/26/24 05/26/24 05/26/24 17:45 22:59 23:51 MCV 92.0 MCH 31.8 MCHC 34.6 RDW 12.7 Plt Count 195 MPV 9.1 L Immature Gran % (Auto) 0.3 Neut % (Auto) 71.4 Lymph % (Auto) 18.5 L [place] % (Auto) 8.1 Eos % (Auto) 1.2 Baso % (Auto) 0.5 Lymph # (Auto) 1.4 [place] # (Auto) 0.6 Eos # (Auto) 0.1 Baso # (Auto) 0.0 Abs Immat Gran (auto) 0.02 Absolute Neuts (auto) 5.4 Absolute Nucleated RBC 0.000 Nucleated RBC % (auto) 0.0 PT 11.6 INR 1.0 Anion Gap 12 Estim Creat Clear Calc 71.2 Estimated GFR > 60 Random Glucose 101 Calcium 9.6 Magnesium 2.1 Total Bilirubin 2.5 H Direct Bilirubin 1.8 H AST 696 H ALT 1411 H Alkaline Phosphatase 173 H Troponin I High Sens < 2.7 Total Protein 7.2 Albumin 4.4 Lipase 50 Urine Color Dark Yellow Urine Appearance Clear Urine pH 6.5 Ur Specific [place] <= 1.005 Urine Protein Negative Urine Glucose (UA) Negative Urine Ketones 15 Urine Blood Negative Urine Nitrite Negative Ur Leukocyte Esterase Trace H Urine RBC 0-2 Urine WBC 0-5 Ur Squamous Epith Cells 0-2 Urine Bacteria None Seen Hyaline Casts 0-2 Imaging Radiologist's Impressions: Impressions Abdomen Ultrasound 05/26/24 17:56 IMPRESSION: No acute finding. Status post cholecystectomy. The common bile duct is normal in caliber for the postcholecystectomy state. Electronically signed by: Rufino Cardoso DO 05/26/2024 08:24 PM [facility] Assessment and Plan (1) Elevated liver enzymes: Status: Acute Plan This is a 53-year-old female with history of cholecystectomy who presents to the emergency department for evaluation of abdominal pain. #. Acute hepatitis: Markedly elevated AST/ALT. CT scan abdomen/pelvis done at [facility] on 05/24 without any acute abnormality. Abdominal ultrasound also without any acute finding. Hepatitis viral panel/EBV/CMV and acetaminophen level pending. Also obtained LISY, autoantibodies. Consulted Gastroenterology, appreciate assistance. No significant alcohol use. Med rec pending DVT prophylaxis: Lovenox Full code Admit as inpatient and will require two night minimum hospital stay for close monitoring of liver enzymes (as above), which is not possible in a lesser acute setting. Specialist consult pending Quality Stroke Does the patient have a stroke diagnosis?: No VTE Prior VTE?: No VTE Risk Level:: Medical - moderate - high VTE Device Contraindication: Treatment Not Indicated VTE Drug Contraindication: N/A - Med Ordered
[2024-05-27 00:15] LABS: Acetaminophen LAB < 3 mcg/mL (<30); Troponin-I High Sensitivity 3.5 ng/L (<3.5-17.0)
[2024-05-27] MEDS: Pantoprazole Sodium 40 MG/10 ML VIAL IVPUSH (01:26)
[2024-05-27 04:15] LABS: HBS Num1 207.38 mIU/mL (0-7.99); HBsAGNum1 0.51 S/CO (0.00-0.99); Hepatitis A Antibody IgM 0.16 Index (0-0.79); Hepatitis B Core Antibody Nonreactive (Nonreactive); Hepatitis B Surface Antigen Negative (Negative); ~HepC Num1 0.07 S/CO (0.00-0.79); ~Hepatitis A Antibody IgM Nonreactive (Nonreactive); ~Hepatitis B Surface Antibody REACTIVE (Nonreactive); ~Hepatitis C Antibody Nonreactive (Nonreactive)
[2024-05-27 06:16] LABS: MANUAL DIFF FLAG NO
[2024-05-27 06:20] LABS: Basophils Percent Auto 0.7 % (0-2); Eosinophils Absolute Auto 0.1 X10*3/uL (0.0-0.4); Eosinophils Percent Auto 2.5 % (0-4); Hematocrit 38.6 % (37.0-47.0); Hemoglobin 13.1 g/dl (12.0-16.0); Imm Gran Abs Auto 0.01 X10*3/uL (0.00-0.03); Imm Gran Pct Auto 0.2 % (0.0-0.4); Lymphocytes Absolute Auto 1.4 X10*3/uL (1.2-4.9); Lymphocytes Percent Auto 24.5 % (20-40); Mean Corpuscular HGB Conc 33.9 g/dl (31.0-35.0); Mean Corpuscular Hemoglobin 31.4 pg (27.0-33.0); Mean Corpuscular Volume 92.6 fL (80.0-98.0); Mean Platelet Volume 9.6 fL (9.4-12.3); Monocytes Absolute Auto 0.5 X10*3/uL (0.1-1.2); Monocytes Percent Auto 9.7 % (2-11); Neutrophils Absolute Auto 3.5 x10*3/uL (2.0-8.3); Neutrophils Percent Auto 62.4 % (45-73); Platelet Count 206 X10*3/uL (160-400); Red Blood Count 4.17 X10*6/uL (4.20-5.50); Red Cell Distribution Width 12.8 % (11.0-16.0); White Blood Count 5.6 X10*3/uL (4.8-10.8)
[2024-05-27 06:40] LABS: Albumin Level 4.1 g/dL (3.5-5.0); Alkaline Phosphatase 179 U/L (39-117); Anion Gap 14 (12-20); Aspartate Amino Transferase 496 U/L (5-31); Bilirubin Total 2.2 mg/dL (0.0-1.0); Blood Urea Nitrogen 8 mg/dL (9-16); Calcium 9.2 mg/dL (8.4-10.2); Carbon Dioxide 28 mmol/L (22-29); Chloride 103 mmol/L (96-108); Estimated Glomerular Filt Rate > 60; Glucose Random 117 mg/dL (60-115); Potassium 3.5 mmol/L (3.3-5.1); Sodium 141 mmol/L (135-145); Total Protein 6.8 g/dL (6.5-8.0)
[2024-05-27 07:06] LABS: Alanine Aminotransferase 1190 U/L (0-31)
[2024-05-27] MEDS: 0.9 % Sodium Chloride Flush 3 ML SYRINGE IVFLUSH ×3 (08:15→19:20)
--- NOTE | 2024-05-27 08:56 | PHA.MEDREC ---
Addendum entered by Tiffany Ordoñez RPh 05/27/24 09:06: Med rec was reviewed by Ike. Original Note: Pharmacy Consult ? Medication Reconciliation Pharmacy has completed the medication reconciliation. Spoke to patient to confirm med list. patient states she takes [place] 7.5 mg. she get OTC. Last time she took was today at 8:00am
[2024-05-27] MEDS: Acetaminophen 325 MG TABLET 650 MG PO (09:58)
--- NOTE | 2024-05-27 11:15 | HO.PM.IMPN ---
Subjective Subjective Date of Service: 05/27/24 Interval History: abd pain improved Physical Exam Vital Signs: Vital Signs: Last Vital Signs Temp 97.9 F 05/27/24 07:55 Pulse 78 05/27/24 07:55 Resp 16 05/27/24 07:55 BP 118/73 05/27/24 07:55 Pulse Ox 99 05/27/24 07:55 O2 Del Method Room Air 05/27/24 07:55 BMI result Body Mass Index 25.5 General: AO X 3, no acute distress Resp: CTA bilateral, no accessory muscles used CVS: S1,S2,RRR GI: soft, non tender, non distended Neuro: motor grossly intact, alert Psych: appropriate affect, appropriate insight Objective Data Active Medications Acetaminophen (Acetaminophen 325 Mg Tablet) 650 mg PO Q6H PRN PRN Reason: Pain, Mild (Pain Scale 1-3), fever or headache Last Admin: 05/27/24 09:58 Dose: 650 mg Documented By: JUJU Calcium Carbonate (Calcium Carbonate 750 Mg Tab.Chew) 750 mg PO Q4H PRN PRN Reason: Heartburn Enoxaparin Sodium (Enoxaparin Sodium 40 Mg/0.4 Ml Syringe) 40 mg SUBCUT Q24H [facility] Last Admin: 05/27/24 01:25 Dose: Not Given Documented By: HALIE Non-Admin Reason: Patient Refused Hydromorphone HCl (Hydromorphone Hcl 1 Mg/Ml Syringe) 0.5 mg IVPUSH Q4H PRN; Protocol PRN Reason: Pain, Severe (Pain Scale 7-10) Magnesium Hydroxide (Milk Of Magnesia 30 Ml Oral.Susp) 30 ml PO DAILY PRN PRN Reason: Constipation Melatonin (Melatonin 3 Mg Tablet) 6 mg PO BEDTIME PRN PRN Reason: Insomnia Non-Formulary Medication (Paroxetine Mesylate(Menop.Sym)) 7.5 mg PO DAILY [facility] Ondansetron HCl (Ondansetron Hcl 4 Mg/2 Ml Vial) 4 mg IVPUSH Q8H PRN PRN Reason: Nausea and Vomiting Pantoprazole Sodium (Pantoprazole Sodium 40 Mg/10 Ml Vial) 40 mg IVPUSH DAILY@0630 [facility] Last Admin: 05/27/24 01:26 Dose: 40 mg Documented By: HALIE Sodium Chloride (0.9 % Sodium Chloride Flush 3 Ml Syringe) 3 ml IVFLUSH QSHIFT [facility] Last Admin: 05/27/24 08:15 Dose: 3 ml Documented By: JUJU Labs 05/27/24 05:11 05/27/24 05:11 Labs: Laboratory Results - last 24 hr 05/26/24 05/26/24 05/26/24 17:45 22:59 23:51 MCV 92.0 MCH 31.8 MCHC 34.6 RDW 12.7 Plt Count 195 MPV 9.1 L Immature Gran % (Auto) 0.3 Neut % (Auto) 71.4 Lymph % (Auto) 18.5 L [place] % (Auto) 8.1 Eos % (Auto) 1.2 Baso % (Auto) 0.5 Lymph # (Auto) 1.4 [place] # (Auto) 0.6 Eos # (Auto) 0.1 Baso # (Auto) 0.0 Abs Immat Gran (auto) 0.02 Absolute Neuts (auto) 5.4 Absolute Nucleated RBC 0.000 Nucleated RBC % (auto) 0.0 PT 11.6 INR 1.0 Anion Gap 12 Estim Creat Clear Calc 71.2 Estimated GFR > 60 Random Glucose 101 Calcium 9.6 Magnesium 2.1 Total Bilirubin 2.5 H Direct Bilirubin 1.8 H AST 696 H ALT 1411 H Alkaline Phosphatase 173 H Troponin I High Sens < 2.7 3.5 Total Protein 7.2 Albumin 4.4 Lipase 50 Urine Color Dark Yellow Urine Appearance Clear Urine pH 6.5 Ur Specific [place] <= 1.005 Urine Protein Negative Urine Glucose (UA) Negative Urine Ketones 15 Urine Blood Negative Urine Nitrite Negative Ur Leukocyte Esterase Trace H Urine RBC 0-2 Urine WBC 0-5 Ur Squamous Epith Cells 0-2 Urine Bacteria None Seen Hyaline Casts 0-2 Acetaminophen < 3 Hepatitis A IgM Ab Nonreactive Hep Bs Antigen Negative Hep Bs Antibody REACTIVE Hep B Core Total Ab Nonreactive Hepatitis C Ab (EIA) Nonreactive 05/27/24 05:11 MCV 92.6 MCH 31.4 MCHC 33.9 RDW 12.8 Plt Count 206 MPV 9.6 Immature Gran % (Auto) 0.2 Neut % (Auto) 62.4 Lymph % (Auto) 24.5 [place] % (Auto) 9.7 Eos % (Auto) 2.5 Baso % (Auto) 0.7 Lymph # (Auto) 1.4 [place] # (Auto) 0.5 Eos # (Auto) 0.1 Baso # (Auto) 0.0 Abs Immat Gran (auto) 0.01 Absolute Neuts (auto) 3.5 Absolute Nucleated RBC 0.000 Nucleated RBC % (auto) 0.0 PT INR Anion Gap 14 Estim Creat Clear Calc 74.0 Estimated GFR > 60 Random Glucose 117 H Calcium 9.2 Magnesium Total Bilirubin 2.2 H Direct Bilirubin AST 496 H ALT 1190 H Alkaline Phosphatase 179 H Troponin I High Sens Total Protein 6.8 Albumin 4.1 Lipase Urine Color Urine Appearance Urine pH Ur Specific [place] Urine Protein Urine Glucose (UA) Urine Ketones Urine Blood Urine Nitrite Ur Leukocyte Esterase Urine RBC Urine WBC Ur Squamous Epith Cells Urine Bacteria Hyaline Casts Acetaminophen Hepatitis A IgM Ab Hep Bs Antigen Hep Bs Antibody Hep B Core Total Ab Hepatitis C Ab (EIA) Assessment and Plan (1) Elevated liver enzymes: Status: Acute Plan 53F PMH biliary colic s/p cholecystectomy, presented with abdominal pain and elevated LFTs acute hepatitis differential broad, includes viral, mechanical, medication, autoimmune follow up gi dvt prophylaxis - lovenox full code reason for continued hospitalization:working up hepatitis Quality Stroke Does the patient have a stroke diagnosis?: No VTE Prior VTE?: No VTE Risk Level:: Medical - moderate - high VTE Device Contraindication: Treatment Not Indicated VTE Drug Contraindication: N/A - Med Ordered
--- NOTE | 2024-05-27 14:51 | MHC.CM.PN ---
CM MET WITH PT AT BEDSIDE. PT LIVES WITH SPOUSE AND IS INDEPENDENT WITH MOBILITY. PT IS EMPLOYED REMOTELY F/T. +HCP, COPY AT HOME AND PER SPOUSE, WILL BRING IN A COPY. PCP DR. PENNINGTON DP: HOME, NO SERVICES IS THE GOAL. [facility] WILL TRANSPORT HOME. CM WILL CONTINUE TO FOLLOW FOR ANY CHANGE TO DC PLAN/NEEDS.
--- NOTE | 2024-05-27 18:34 | P.CNGI_ITS ---
History of Present Illness Data of Consult Service Date: 05/27/24 Requesting physician: Antonio Gordillo Primary Care Provider: Mckay Stokes MD HPI Reason for consult: abn LFT abdo pain 53-year-old female with history of cholecystectomy 08/31 who I am seeing for assessment for abdominal pain Pain initially came on 05/24 and was sharp in the RUQ going into the chest 10/10 in severity, waxing and waning jsut like her gallbladder pain from prior times. Went to [facility] and sent home after given morphine. Pain then came back as before with greater intensity so she came to [facility]. pain associated with nausea. Denies vomiting, no fever, no chest pain, palpitations, shortness of breath, changes in urinary or bowel habits. No exacerbating or worsening factors Right now she feels relaxed and no pain. US imaging did not reveal any acute pathology. LFT with AST found to be 696, ALT 1411, alkaline phosphatase 173. Bili mildly elevated 2.5 with neg troponin. ECG with some T wave flattening and inversion III, aVf Review of Systems 2 Review of Systems: Constitutional : No Weight loss, No Fever, No Chills ENT/Mouth : No sore throat, No Rhinorrhea Eyes: No Swelling, No Redness Cardiovascular : No Chest Pain, No SOB, No Edema Respiratory : No Cough, No Sputum, No Wheezing Gastrointestinal : see HPI Genitourinary : NO Dysuria, No Urinary Frequency, No Hematuria, No Urgency Musculoskeletal : No joint pain, No Myalgias, No Joint Swelling Skin : No Skin Lesions, No rash Neuro : No Weakness, No Numbness, No Dizziness, No Headache Psych : No Anxiety/Panic, No Depression Heme/Lymph: No Bruising, No Lymphadenopathy Endocrine : No Polyuria, No Polydipsia All other systems reviewed and are negative. [facility] Past Medical History Medical History Weight loss Symptomatic cholelithiasis Family History Family History Father Hodgkin disease Surgical History Surgical History Hx laparoscopic cholecystectomy (08/28/23) History of esophagogastroduodenoscopy (EGD) Hx of tubal ligation Hx of laparoscopy Social History Social History Household Members: Family Housing: House Are you a primary resident care aid to a significant other at home: No Do you presently have visiting nurse or other home services: No Alcohol intake: current Alcohol intake frequency: 0-2 drinks per day Comment: counts correct Patient Tobacco Use Status: Never used Tobacco service: No Meds Allergies Allergy/AdvReac Type Severity Reaction Status Date / Time Sulfa (Sulfonamide Allergy Mild Rash Verified 05/26/24 16:29 Antibiotics) Active Medications: Current Medications Acetaminophen (Acetaminophen 325 Mg Tablet) 650 mg PO Q6H PRN PRN Reason: Pain, Mild (Pain Scale 1-3), fever or headache Last Admin: 05/27/24 09:58 Dose: 650 mg Calcium Carbonate (Calcium Carbonate 750 Mg Tab.Chew) 750 mg PO Q4H PRN PRN Reason: Heartburn Enoxaparin Sodium (Enoxaparin Sodium 40 Mg/0.4 Ml Syringe) 40 mg SUBCUT Q24H [facility] Last Admin: 05/27/24 01:25 Dose: Not Given Hydromorphone HCl (Hydromorphone Hcl 1 Mg/Ml Syringe) 0.5 mg IVPUSH Q4H PRN; Protocol PRN Reason: Pain, Severe (Pain Scale 7-10) Magnesium Hydroxide (Milk Of Magnesia 30 Ml Oral.Susp) 30 ml PO DAILY PRN PRN Reason: Constipation Melatonin (Melatonin 3 Mg Tablet) 6 mg PO BEDTIME PRN PRN Reason: Insomnia Non-Formulary Medication (Paroxetine Mesylate(Menop.Sym)) 7.5 mg PO DAILY [facility] Ondansetron HCl (Ondansetron Hcl 4 Mg/2 Ml Vial) 4 mg IVPUSH Q8H PRN PRN Reason: Nausea and Vomiting Pantoprazole Sodium (Pantoprazole Sodium 40 Mg/10 Ml Vial) 40 mg IVPUSH DAILY@0630 [facility] Last Admin: 05/27/24 01:26 Dose: 40 mg Sodium Chloride (0.9 % Sodium Chloride Flush 3 Ml Syringe) 3 ml IVFLUSH QSHIFT [facility] Last Admin: 05/27/24 16:44 Dose: 3 ml Home Medications ?Medication ?Instructions ?Recorded ?Confirmed ?Last Taken ?Type paroxetine mesylate(menop.sym) 7.5 7.5 mg PO DAILY 05/27/24 05/27/24 05/27/24 08:00 History mg capsule Physical Exam 2 Vital Signs: Vital Signs: Last Vital Signs Temp 99.1 F 05/27/24 15:19 Pulse 80 05/27/24 15:19 Resp 16 05/27/24 15:19 BP 129/75 05/27/24 15:19 Pulse Ox 99 05/27/24 15:19 O2 Del Method Room Air 05/27/24 15:19 BMI result Body Mass Index 25.5 EXAM: GENERAL: The patient is well developed and nontoxic. VITAL SIGNS:see workflow HEENT: Nonicteric sclerae, PERRLA, EOMI. Oropharynx clear. Moist mucous membranes. Conjunctivae appear well perfused. No thyroid mass. CHEST: Chest wall is nontender. HEART: Regular rate and rhythm without murmurs. LUNGS: Clear to auscultation bilaterally. ABDOMEN: Soft, positive bowel sounds, mildly tender RUQ, no organomegaly.no flank tenderness SKIN: No rash, no excessive bruising, petechiae, or purpura. NEUROLOGIC: Cranial nerves II-XII intact without motor/sensory deficit. Psych: normal affect Results Labs 05/27/24 05:11 05/27/24 05:11 Labs: Short CBC 05/27/24 Range/Units 05:11 WBC 5.6 (4.8-10.8) X10*3/uL Hgb 13.1 (12.0-16.0) g/dl Hct 38.6 (37.0-47.0) % Plt Count 206 (160-400) X10*3/uL BMP 05/27/24 05:11 Sodium 141 Potassium 3.5 Chloride 103 Carbon Dioxide 28 BUN 8 L Creatinine 0.78 Calcium 9.2 Liver Function 05/26/24 05/27/24 Range/Units 17:45 05:11 Total Bilirubin 2.2 H (0.0-1.0) mg/dL AST 496 H (5-31) U/L ALT 1411 H 1190 H (0-31) U/L Alkaline Phosphatase 179 H (39-117) U/L Albumin 4.1 (3.5-5.0) g/dL Urine 05/26/24 Range/Units 22:59 Urine Color Dark Yellow Urine Appearance Clear Urine pH 6.5 (5.0-9.0) Ur Specific [place] <= 1.005 (1.005-1.025) Urine Protein Negative (Neg-Trace) mg/dL Urine Glucose (UA) Negative (Negative) mg/dL Assessment and Plan (1) Elevated liver enzymes: Status: Acute Plan 1/ Abdo pain with elevated LFT simialr to prior symptomatic cholelithiasis but more severe, ddx: SOD type II, retained or de leatha CBD stones, less likely ddx: budd chiari, AIH, late wilsons disease, toxic or viral hepatitis PLAN: 1/ MRCP 2/ await AIH panel, check ceruloplasmin, await viral hep serologies 3/ depending on tests may need ERCP 4/ can use bentyl meantime, may help with any spasm or residual pain Procedures Date of Service Date of Service: 05/27/24
[2024-05-27] MEDS: Melatonin 3 MG TABLET 6 MG PO (20:54)
[2024-05-28 03:24] VITALS: BP 105/69; PULSE 73; RESP 18; TEMP 36.7; O2SAT 99
[2024-05-28] MEDS: Acetaminophen 325 MG TABLET 650 MG PO (03:49)
[2024-05-28] MEDS: Pantoprazole Sodium 40 MG/10 ML VIAL IVPUSH (06:21)
[2024-05-28 06:57] LABS: Alanine Aminotransferase 894 U/L (0-31); Alkaline Phosphatase 163 U/L (39-117); Anion Gap 12 (12-20); Aspartate Amino Transferase 214 U/L (5-31); Bilirubin Direct 0.5 mg/dL (0.0-0.5); Bilirubin Total 1.1 mg/dL (0.0-1.0); Blood Urea Nitrogen 11 mg/dL (9-16); Carbon Dioxide 27 mmol/L (22-29); Chloride 105 mmol/L (96-108); Creatinine Clr Calc Pharmacy 71.2; Estimated Glomerular Filt Rate > 60; Glucose Fasting 98 mg/dL (60-99); Potassium 4.1 mmol/L (3.3-5.1); Sodium 140 mmol/L (135-145); Total Protein 6.7 g/dL (6.5-8.0)
[2024-05-28 07:11] LABS: Calcium 10.2 mg/dL (8.4-10.2)
[2024-05-28 07:43] VITALS: BP 131/75; PULSE 83; RESP 16; TEMP 36.6; O2SAT 95
--- NOTE | 2024-05-28 10:49 | PM.DS ---
DS: Providers Provider Date of Service: 05/28/24 Date of admission: 05/27/24 00:05 Date of discharge: 05/28/24 Primary care physician: Mckay Stokes MD Consults: 05/27/24 00:05 Consult to Gastroenterology Routine Consulting Provider: Aurelio Pereira Reason for consultation: elevated liver enzymes DS: Diagnosis Discharge Diagnosis (1) Elevated liver enzymes: Status: Acute DS: Summary Hospital Course Hospital Course: from initial hpi: 53-year-old female with history of cholecystectomy who presents to the emergency department for evaluation of abdominal pain. Patient states she had sudden onset of sharp abdominal pain which was intermittent and radiated to the chest on 05/24. Patient went to [facility] ER where CT scan was without any acute abnormality. Patient's liver enzymes were in the 500 and she was discharged from the ER to follow-up with PCP. Patient tried to make an appointment with PCP but on the day of presentation again had 2 episodes of sharp upper abdominal discomfort which were intermittent and radiated to the chest. Also had symptoms of gastroesophageal reflux disease. She did not hear back from her PCP and hence decided to come to the ER at [facility]. No history of similar symptoms in the past. Had cholecystectomy in August 2023. Also has associated nausea. Minimal p.o. intake on the day of presentation which she was able to tolerate. No vomiting or diarrhea. No fever, chills, chest pain, palpitations, shortness of breath, changes in urinary or bowel habits. Patient drinks 1 wine every night. Denies any history of alcohol use disorder. No history of autoimmune disorder. In the emergency department, AST found to be 696, ALT 1411, alkaline phosphatase 173. Gastroenterology was consulted who requested admission hospital course: Patient was admitted for acute elevation in LFTs and abdominal pain. Differential was broad including viral, mechanical, medication induced, autoimmune mechanisms. MRCP was unremarkable. Was seen by Gastroenterology recommended elective ERCP as outpatient and hyoscamine for symptoms. patients lfts improving, abd pain improving, will be discharged home. Time Attestation Discharge Coordination Time (in mins): 34 Quality: Safe Use of Opioids Does Pt have an Active Cancer Diagnosis on the Problem List?: No Quality: Stroke Does the patient have a stroke diagnosis?: No Physical Exam Vital Signs: Vital Signs: Last Vital Signs Temp 97.8 F 05/28/24 07:43 Pulse 83 05/28/24 07:43 Resp 16 05/28/24 07:43 BP 131/75 05/28/24 07:43 Pulse Ox 95 05/28/24 07:43 O2 Del Method Room Air 05/28/24 07:43 BMI result Body Mass Index 25.5 General: AO X 3, no acute distress Resp: CTA bilateral, no accessory muscles used CVS: S1,S2,RRR GI: soft, non tender, non distended Neuro: motor grossly intact, alert Psych: appropriate affect, appropriate insight DS: Data Data Completed and Pending Labs on day of discharge: Laboratory Results - last 24 hr 05/28/24 05:33 Hold Purple Top SEE NOTE Sodium 140 Potassium 4.1 Chloride 105 Carbon Dioxide 27 Anion Gap 12 BUN 11 Creatinine 0.81 Estim Creat Clear Calc 71.2 Estimated GFR > 60 Fasting Glucose 98 Calcium 10.2 D Total Bilirubin 1.1 H Direct Bilirubin 0.5 AST 214 H ALT 894 H Alkaline Phosphatase 163 H Total Protein 6.7 Albumin 4.0 Discharge Plan Discharge Anticipated Discharge Date/Time: 05/28/24 10:47 Patient Disposition: Home, Self-Care Discharge Diagnosis: elevated lfts Referrals: Aurelio Pereira MD [Physician] - 1 Week Mckay Stokes MD [Primary Care Provider] - 1 Week Discharge Medications: New hyoscyamine sulfate 0.125 mg tablet,disintegrating 0.25 mg PO QID PRN (Reason: dyspepsia) Qty: 30 0RF Continued paroxetine mesylate(menop.sym) 7.5 mg Capsule 7.5 mg PO DAILY Discharge Orders: Discharge Order (Routine); Ordered 05/28/24 Ordered By: Juventino Tovar Diet: Advance to usual diet Activity on Discharge: As tolerated Stand Alone Forms: Patient Portal Discharge page Print Language: Persian Care Plan Goals: recovery Health Concerns: abd pain, lfts Plan of Treatment: follow up with GI for ERCP, hyoscamine for abd pain Assessment: see above
--- NOTE | 2024-05-28 11:13 | MHC.CM.PN ---
Patient medically cleared for dc home self care. Daughter will provide transport home ~12pm. RN aware.
--- NOTE | 2024-05-28 11:44 | P.PNGI_ITS ---
Subjective Subjective Date of Service: 05/28/24 Interval History: Pain much better today eating ok no nausea or vomiting no fever or chills Critical Care Time (minutes): 0 Physical Exam 2 Vital Signs: Vital Signs: Last Vital Signs Temp 97.8 F 05/28/24 07:43 Pulse 83 05/28/24 07:43 Resp 16 05/28/24 07:43 BP 131/75 05/28/24 07:43 Pulse Ox 95 05/28/24 07:43 O2 Del Method Room Air 05/28/24 07:43 BMI result Body Mass Index 25.5 EXAM: GENERAL: The patient is well developed and nontoxic. VITAL SIGNS:see workflow HEENT: Nonicteric sclerae, PERRLA, EOMI. Oropharynx clear. Moist mucous membranes. Conjunctivae appear well perfused. No thyroid mass. CHEST: Chest wall is nontender. HEART: Regular rate and rhythm without murmurs. LUNGS: Clear to auscultation bilaterally. ABDOMEN: Soft, positive bowel sounds, screw machine tender RUQ, no organomegaly.no flank tenderness SKIN: No rash, no excessive bruising, petechiae, or purpura. NEUROLOGIC: Cranial nerves II-XII intact without motor/sensory deficit. Psych: normal affect Objective Data Labs 05/27/24 05:11 05/28/24 05:33 Labs: Laboratory Results - last 24 hr 05/28/24 05:33 Hold Purple Top SEE NOTE Sodium 140 Potassium 4.1 Chloride 105 Carbon Dioxide 27 Anion Gap 12 BUN 11 Creatinine 0.81 Estim Creat Clear Calc 71.2 Estimated GFR > 60 Fasting Glucose 98 Calcium 10.2 D Total Bilirubin 1.1 H Direct Bilirubin 0.5 AST 214 H ALT 894 H Alkaline Phosphatase 163 H Total Protein 6.7 Albumin 4.0 Imaging MRI - abdomen: Attestation: I personally reviewed and interpreted this imaging study as follows: (cbd normal, no filling defects noted ) Procedures Date of Service Date of Service: 05/28/24 Progress Note: A&P Assessment and plan (1) Elevated liver enzymes: Status: Acute Plan 1/ bouts of colicky pain and abn LFT better, MRCP without filling defects, most likely to be SOD type II, could also be microlithiasis or still even CBD stone not seen on MR PLAN: 1/ I offered her ERCP vs referral for EUS, she wants to proceed with ERCP as o/p 2/ We can also recheck LFT on Saturday if she is back to nml and LFT normalized then we could hold off 3/ can go home with katherin Time Spent With Patient Time: Total time managing care of this patient today ____ minutes. Quality Stroke Does the patient have a stroke diagnosis?: No VTE Prior VTE?: No VTE Risk Level:: Medical - moderate - high VTE Device Contraindication: Treatment Not Indicated VTE Drug Contraindication: N/A - Med Ordered
[2024-05-29 10:39] LABS: Anti Nuclear Antibody Screen NEGATIVE (NEGATIVE)
--- OUTSIDE RECORDS SUMMARY | 2024-05-29 13:42 | XMS_ITS | Continuity of Care Document ---
Author Organization [facility] Ermias Hdez Peterson lt Address [address] [place] [address]- Care Team Providers Care Centrifugal Operator Name Role Phone Divya LINDA, Mckay Oliveira Primary Care Physician Encounter [facility] Date(s): 04/07/21 - 05/07/21 [facility] Ermias Hdez Adult [address] [place] [address]- Attending Physician: Admtr, Ar8 Admitting Physician: Admtr, Ar8 Referring Physician: Admtr, Ar8 Allergies, Adverse Reactions, Alerts Substance Reaction Severity Status sulfADIAZINE Active Immunizations Given and Recorded Vaccine Date Status Refusal Reason SARS-CoV-2 (COVID-19) mRNA BNT-162b2 vac 07/27/20 Recorded Medications Fioricet oral capsule 1 capsule, By Mouth, Every 4 hours, PRN Headache, # 30 capsule, 3 Refills, Acute 12/02/21 10:17:00 EDT, 12/02/20 10:15:00 EDT, [facility], Partial fill upon patient request if the prescription is for a schedule II opioid drug., 1 ca... Start Date: 12/02/20 Stop Date: 12/02/21 Status: Ordered ibuprofen 600 mg oral tablet 600 mg, 1, tablet, By Mouth, Daily, PRN, # 90 tablet, Refills 3, Tot. Refills 3, Acute 12/02/21 10:18:00 EDT, Pain , Moderate, 12/02/20 10:17:00 EDT, Route to Pharmacy Electronically, [facility], Partial fill upon patient request if... Start Date: 12/02/20 Stop Date: 12/02/21 Status: Ordered PARoxetine 7.5 mg oral capsule 1 capsule = 7.5 mg, By Mouth, Daily at bedtime, # 90 capsule, 3 Refills, Maintenance, 12/02/20 10:17:00 EDT, Capsule, [facility], Partial fill upon patient request if the prescription is for a schedule II opioid drug., 160.2, cm, 05... Start Date: 12/02/20 Status: Ordered Problem List Condition Effective Dates Status Health Status Inform ant Anxiety(Confirmed) Active Chronic cervicalgia(Confirmed) Active Low back pain(Confirmed) Active Headache, migraine(Confirmed) Active Social History Social History Type Response Smoking Status Never (less than 100 in lifetime) entered on: 11/11/19 Sex
--- OUTSIDE RECORDS SUMMARY | 2024-05-29 13:42 | XMS_ITS | Continuity of Care Document ---
Author Organization [facility] Lemuel Peterson lt Address [address] [place] [address]- Care Team Providers Care Security Program Manager Name Role Phone Divya LINDA, Mckay Oliveira Primary Care Physician [phone] Encounter [facility] [place] ACCT R [id number] Date(s): 04/15/24 - 04/22/24 [facility] Adult [address] [place] [address]- Encounter Diagnosis Post-nasal drip(Discharge Diagnosis) - 04/15/24 Attending Physician: Not on Staff, Attending MD Allergies, Adverse Reactions, Alerts Substance Reaction Severity Status sulfADIAZINE Active Immunizations Given and Recorded Vaccine Date Status Refusal Reason tetanus/diphtheria/pertussis, acel(Tdap) 10/17/23 Recorded influenza virus vaccine, inactivated 05/10/23 Forrest rded influenza virus vaccine, inactivated 04/26/22 Forrest rded influenza virus vaccine, inactivated 06/12/21 Give n SARS-CoV-2 (COVID-19) mRNA BNT-162b2 vac 08/17/20 Recorded SARS-CoV-2 (COVID-19) mRNA BNT-162b2 vac 07/27/20 Recorded Medications acetaminophen/butalbital/caffeine 300 mg-50 mg-40 mg oral capsule 1 capsule, By Mouth, Every 4 hours, PRN NEEDED FOR HEADACHE, # 30 capsule, 1 Refills, Maintenance, 04/06/22 5:32:00 EDT, [facility], 0, TAKE 1 CAPSULE EVERY 4 HOURS NEEDED FOR HEADACHE, 160.2, cm, 12/02/20 8:48:00 EDT, Height Start Date: 04/06/22 Status: Ordered PARoxetine 7.5 mg oral capsule 1 capsule, By Mouth, Daily at bedtime, # 90 capsule, 3 Refills, Maintenance, 04/06/22 5:32:00 EDT, [facility], 160.2, cm, 12/02/20 8:48:00 EDT, Height Start Date: 04/06/22 Status: Ordered Wegovy (2.4 mg dose) subcutaneous solution = 2.4 mg, Subcutaneous Injection, Every week, E66.2 90 days supply, # 9 mL, 3 Refills, Maintenance,01/24/23 12:16:00 EDT, [facility], Partial fill upon patient request if the prescription is for a schedule II opioid drug.E66.2... Start Date: 01/24/23 Status: Ordered Problem List Condition Confirmation Course Effective Dates Status Health St atus Informant Anxiety Confirmed Active Chronic cervicalgia Confirmed Active Low back pain Confirmed Active Headache, migraine Confirmed Active Diagnosis Diagnosis Type Effective Dates Health Status Cl inical Service Informant Post-nasal drip Discharge Diagnosis 04/15/24 Vital Signs Most recent to oldest [Reference Range]: 1 Height 160.8 cm (04/15/24 12:23 PM) Weight 64 kg (04/15/24 12:23 PM) Oxygen Saturation [94-100 %] 99 % (04/15/24 12:23 PM) Pulse Rate [55-90 bpm] 80 bpm (04/15/24 12:23 PM) Body Mass Index [18.5-24.99 kg/m2] 24.75 kg/m2 (04/15/24 12:23 PM) Blood Pressure [90-138/55-84 mm Hg] 118/ 79mm Hg (04/15/24 12:23 PM) Blood pressure sites Arm, left (04/15/24 12:23 PM) Weight Obtained Via Patient/family state d (04/15/24 12:23 PM) Social History Social History Type Response Smoking Status Never (less than 100 in lifetime) entered on: 11/11/19 Sex Note * Justine Daniels: PERFORM Event Display: Patient Education/Instruction Authored Date: [id number] Ambulatory Adult Visit Summary [facility] Adult [facility] Machelle Hdez Adlt [address] [place], [place] [id number] Name: YOSVANY ILSA : 1970?? Visit: 04/15/2024 12:18?? Ambulatory Visit Instructions ?? Your Care Team Primary Care Provider Divya LINDA, Mckay Oliveira? This Visit Provider Jody Fragoso NP Your Diagnosis Post-nasal drip Vitals Signs Pulse Rate: 80 bpm Height: 160.8 cm Systolic Blood Pressure: 118 mm Hg Weight: 64 kg Diastolic Blood Pressure: 79 mm Hg Body Mass Index: 24.75 kg/m2 Oxygen Saturation: 99 % Body surface area: 1.69 What to do next Follow-Up Appointments Follow Up with??As Needed Follow Up with??Jody Fragoso NP Where: [address] [place] [address]- Medications The list below reflects the information in our records and provided by you today along with any changes made during this visit. Please continue your medications until treatment is completed or stopped by your provider. If this is different from the information you have or there are other questions,please contact the prescribing provider. What How Much When Instructions New MethylPREDNISolone (Medrol Dosepak 4 mg oral tablet) 1 pack/packet Oral Daily Duration: 6 Days as directed on package labeling ?? Pickup at [facility]/pharmacy #[id number] Unchanged Acetaminophen/ Butalbital/ Caffeine (acetaminophen/ butalbital/ caffeine 300 mg-50 mg-40 mg oral capsule) 1 capsule Oral Every 4 hours as needed for NEEDED FOR HEADACHE Unchanged Paroxetine (PARoxetine 7.5 mg oral capsule) 1 capsule Oral Daily at Bedtime Unchanged semaglutide (Wegovy (2.4 mg dose) subcutaneous solution) 2.4 Milligram Subcutaneous Injection Every week E66.2 90 days supply ?? Pharmacy Information [facility]/pharmacy #[id number]: [address], [place] [id number] [phone] Medications and Immunizations Administered Medications Given During Visit No medications given during this visit.?? Allergies (NKA means No Known Allergies) sulfADIAZINE Common Emergency Awareness Tips IS IT A STROKE? Act FAST and Check for these signs: FACE Does the face look uneven? ARM Does one arm drift down? SPEECH Does their speech sound strange? TIME Call at any sign of stroke ?? Heart Attack Signs Chest discomfort: Most heart attacks involve discomfort in the center of the chest and lasts more than a few minutes, or goes away and comes back. It can feel like uncomfortable pressure, squeezing, fullness or pain. Discomfort in upper body: Symptoms can include pain or discomfort in one or both arms, back, neck, jaw or stomach. Shortness of breath: With or without discomfort. Other signs: Breaking out in a cold sweat, nausea, or lightheaded. Remember, MINUTES DO MATTER. If you experience any of these heart attack warning signs, call to get immediate medical attention! ?? Smoking can increase your chances of developing chronic health problems and can cause harmful effects to other family members in your house. If you smoke, you are strongly encouraged to quit. Please call [facility]plewise Link at [phone] or [phone] [phone] ([phone]) or log in to [email or web address] for referrals to smoking cessation programs. ?? The National Suicide Prevention Hotline is available 28/01 if you or someone you know needs to find a reason to keep living. By calling 5-668-221-That{img} (4294) you'll be connected to a skilled, trained counselor at a crisis center in your area. [facility] Portal You can view and manage your care through the patient portal or by using a health care lindsay of your choosing. [employer] is a website that allows you to securely view your medical information including your hospital discharge summary, office visit summaries, medications and follow-up visits. You can also request appointments, renew medications, and request access to your medical information using a health care lindsay of your choosing, or just ask a question. You can enroll at [email or web address] or register during your next office visit. [facility], in keeping with [facility] guidance, no longer requires face masks for staff, patientsor visitors in most situations. Similiar to time spent indoors at other locations, there is the chance that you were exposed to repiratory viruses during your time with us (such as flu or COVID-19). If you develop symptoms concerning for a viral respiratory infection, please seek testing (and treatment if indicated) from your medical provider or home test kit. ?? Disclaimer: The information provided is of a general nature and is intended to be used in conjunction with the recommendations and advice of your health care practitioner. Every effort has been made to ensure that the information provided is accurate and complete at the time it is provided to you however, as your needs change, or, as new information becomes available, different or additional instructions may be required. ?? If you have questions, please consult with your primary care provider or pharmacist, as appropriate. This information is not intended to serve as substitution for assessment and evaluation by a qualified health care provider. If you do not have a primary care provider, you may find a [facility] provider by calling [facility] at [phone]. Patient Care team information Care Team Personnel Name: Mckay Stokes MD Position: [facility] Physician - Primary Care Member Role: PCP Address: Address: [address] [place] [address]- Care Team Related Persons Name: MABLE ROSENBAUM Address: [place] [address]
--- OUTSIDE RECORDS SUMMARY | 2024-05-29 13:42 | XMS_ITS | Continuity of Care Document ---
[facility] lt Address [address] [place] [address]- Care Team Providers Care Rn Heart Name Role Phone Divya LINDA, Mckay Oliveira Primary Care Physician En[place] [facility] [place] R [id number] Date(s): 06/12/21 - 06/19/21 [facility] Adult [address] [place] [address]- Attending Physician: Not on Staff, Attending MD Allergies, Adverse Reactions, Alerts Substance Reaction Severity Status sulfADIAZINE Active Immunizations Given and Recorded Vaccine Date Status Refusal Reason influenza virus vaccine, inactivated 06/12/21 Give n SARS-CoV-2 (COVID-19) mRNA BNT-162b2 vac 07/27/20 Recorded [...]
--- OUTSIDE RECORDS SUMMARY | 2024-05-29 13:42 | XMS_ITS | Continuity of Care Document ---
[facility] lt Address [address] [place] [address]- Care Team Providers Care Correctional Program Officer Name Role Phone Divya LINDA, Mckay Oliveira Primary Care Physician [place] [facility] [place] Date(s): 10/23/21 - 11/22/21 [facility] [place] Adult [address] [place] [address]- Allergies, Adverse Reactions, Alerts Substance Reaction Severity [...]
--- OUTSIDE RECORDS SUMMARY | 2024-05-29 13:42 | XMS_ITS | Continuity of Care Document ---
Author Organization [facility] Ermias Hdez Peterson lt Address [address] [place] [address]- Care Team Providers Care National Stormwater Leader Name Role Phone Divya LINDA, Mckay Oliveira Primary Care Physician [place] [facility] 10/12/22 - 11/11/22 [facility] Adult [address] [place] [address]- Allergies, Adverse Reactions, Alerts Substance Reaction Severity [...] EDT, Height Start Date: 04/06/22 Status: Ordered Amrix 15 mg oral capsule, extended release 1 capsule = 15 mg, By Mouth, Daily, PRN Spasm, # 30 capsule, 2 Refills, Acute 01/03/23 6:10:00 EDT,10/03/22 6:09:00 EDT, [facility]/pharmacy #[id number], Partial fill upon patient request if the prescription is for a schedule II opioid drug., 1 capsule By Mouth D... Start Date: 10/03/22 Stop Date: 01/03/23 Status: Ordered PARoxetine 7.5 mg oral capsule 1 capsule, By Mouth, Daily at bedtime, # 90 capsule, 3 Refills, Maintenance, 04/06/22 5:32:00 EDT, [facility], 160.2, cm, 12/02/20 8:48:00 EDT, Height Start Date: 04/06/22 Status: Ordered Wegovy (1 mg dose) subcutaneous solution = 1 mg, Subcutaneous Injection, Every week, for 4 week(s), increased dose E66.2, # 2 mL, 0 Refills,Acute 11/26/22 15:49:00 EDT, 10/29/22 15:49:00 EDT, [facility]/pharmacy #[id number], Partial fill upon patient request if the prescription is for a schedule II opio... Start Date: 10/29/22 Stop Date: 11/26/22 Status: Ordered Problem List Condition Confirmation Course Effective Dates Status Health St atus Informant Anxiety Confirmed Active Chronic cervicalgia Confirmed Active Low back pain Confirmed Active Headache, migraine Confirmed Active Social History Social History Type Response Smoking Status Never (less than 100 in lifetime) entered on: 11/11/19 Sex Patient Care team information Care Team Personnel Name: Mckay Stokes MD Position: [facility] Primary Care Physician Member Role: PCP Address: Address: [address] [place] [address] Adult [place] [address]- Care Team Related Persons Name: MABLE ROSENBAUM Address: [place] [address]
--- OUTSIDE RECORDS SUMMARY | 2024-05-29 13:42 | XMS_ITS | Continuity of Care Document ---
Author Organization [facility] Ermias Hdez Peterson lt Address [address] [place] [address]- Care Team Providers Care Gamemaster Name Role Phone Divya LINDA, Mckay Oliveira Primary Care Physician [phone] Encounter [facility] [place] Date(s): 10/10/22 - 11/09/22 [facility] [place] Adult [address] [place] [address]- Allergies, Adverse Reactions, Alerts Substance Reaction Severity [...] Refills, Acute 01/03/23 6:10:00 EDT,10/03/22 6:09:00 EDT, [facility]/pharmacy #[id number], Partial fill upon patient request if the [...] Refills,Acute 11/26/22 15:49:00 EDT, 10/29/22 15:49:00 EDT, [facility]/pharmacy #[id number], Partial fill upon patient request if [...] Team Personnel Name: Mckay Stokes MD Position: [facility] Primary Care Physician Member Role: PCP Address: Address: [address] [place] [address] Adult [facility] [place] [address]- Care Team Related Persons Name: MABLE ROSENBAUM Address: [place] [address]
--- OUTSIDE RECORDS SUMMARY | 2024-05-29 13:42 | XMS_ITS | Continuity of Care Document ---
Author Organization [facility] Ermias Hdez Peterson lt Address [address] [place] [address]- Care Team Providers Care Sheet Metal Engineer Name Role Phone Divya LINDA, Mckay Oliveira Primary Care Physician [place] [facility] [place] 06/12[place]21 - 07/12/21 [facility] Adult [address] [place] [address]- Attending Physician: Sushant Medel Admitting Physician: AdmSushant quan Referring Physician: AdmtrSushant Allergies, Adverse Reactions, Alerts Substance Reaction Severity [...]
--- OUTSIDE RECORDS SUMMARY | 2024-05-29 13:42 | XMS_ITS | Continuity of Care Document ---
Author Organization [facility] Ermias Hdez Peterson lt Address [address] [place] [address]- Care Team Providers Care Jacquard Fixer Name Role Phone Divya LINDA, Mckay Oliveira Primary Care Physician En[facility] [place] Date(s): 12/10/22 - 01/09/23 [facility] Ermias Hdez Adult [address] [place] [address]- Allergies, Adverse Reactions, Alerts Substance Reaction Severity [...] = 2.4 mg, Subcutaneous Injection, Every week, E66.2, # 3 mL, 3 Refills, Maintenance, 12/12/22 15:33:00 EDT, [id number], Partial fill upon patient request if the prescription is for a scheduleII opioid drug., 160.8, cm, 10/02/22 16:11:00 EDT,... Start Date: 12/12/22 Status: Ordered Problem List Condition Confirmation Course Effective Dates Status Health St atus Informant Anxiety Confirmed Active Chronic cervicalgia Confirmed Active Low back pain Confirmed Active Headache, migraine Confirmed Active Social History Social History Type Response Smoking Status Never (less than 100 in lifetime) entered on: 11/11/19 Sex Patient Care team information Care Team Personnel Name: Mckay Stokes MD Position: S Physician - Primary Care Member Role: PCP Address: Address: [address] [place] [address]- Care Team Related Persons Name: MABLE ROSENBAUM Address: [place] [address]
--- OUTSIDE RECORDS SUMMARY | 2024-05-29 13:42 | XMS_ITS | Continuity of Care Document ---
Author Organization [facility] Lemuel Peterson lt Address [address] [place] [address]- Care Team Providers Care Varnish Supervisor Name Role Phone Divya LINDA, Mckay Oliveira Primary Care Physician En[place] [facility] [place] Date(s): 04/06/21 - 05/06/21 [facility] Adult [address] [place] [address]- Allergies, Adverse Reactions, Alerts Substance Reaction Severity [...]
--- OUTSIDE RECORDS SUMMARY | 2024-05-29 13:42 | XMS_ITS | Continuity of Care Document ---
Author Organization [facility] Ermias Hdez Peterson lt Address [address] [place] [address]- Care Team Providers Care Mining Detail Draftsperson Name Role Phone Divya LINDA, Mckay Oliveira Primary Care Physician En[place] [facility] [place] Date(s): 01/25/23 - 02/24/23 [facility] Adult [address] [place] [address]- Allergies, Adverse Reactions, Alerts Substance Reaction Severity [...] 9 mL, 3 Refills, Maintenance,01/24/23 12:16:00 EDT, [facility], Partial fill upon patient request if [...] Care team information Care Team Personnel Name: Divya LINDA, Mckay Oliveira Position: [facility] Physician - Primary Care Member Role: PCP Address: Address: [address] [place], [place] [address] [place] [address]- Care Team Related Persons Name: MABLE ROSENBAUM Address: [place] [address]
--- OUTSIDE RECORDS SUMMARY | 2024-05-29 13:43 | XMS_ITS | Continuity of Care Document ---
Author Organization [facility] Lemuel Peterson lt Address [address] [place] [address]- Care Team Providers Care Etl Tester Name Role Phone Divya LINDA, Mckay Oliveira Primary Care Physician [place] [facility] [place] Date[place]s): 06/16/21 - 07/16/21 [facility] [place] Adult [address] [place] [address]- Allergies, Adverse Reactions, Alerts Substance Reaction Severity [...]
--- OUTSIDE RECORDS SUMMARY | 2024-05-29 13:43 | XMS_ITS | Continuity of Care Document ---
Author Organization [facility] Lemuel Peterson lt Address [address] [place] [address]- Care Team Providers Care Records Tech Name Role Phone Divya LINDA, Mckay Oliveira Primary Care Physician [place] [facility] [place] 04/01/24 - 05/01/24 [facility] Adult [address] [place] [address]- Allergies, Adverse Reactions, Alerts Substance Reaction Severity [...] 9 mL, 3 Refills, Maintenance,01/24/23 12:16:00 EDT, [facility], Partial fill upon patient request if [...] Personnel Name: Divya LINDA, Mckay Oliveira Position: S Physician - Primary Care Member Role: PCP Address: Address: [address] [place] [address] [place] [address]- Care Team Related Persons Name: MABLE ROSENBAUM Address: [place] [address]
--- OUTSIDE RECORDS SUMMARY | 2024-05-29 13:43 | XMS_ITS | Continuity of Care Document ---
Author Organization [facility] Lemuel Peterson lt Address [address] [place] [address]- Care Team Providers Care Commander Police Reserves Name Role Phone Divya LINDA, Mckay Oliveira Primary Care Physician [phone] [place] [facility] [place] Date(s): 10/30/22 - 11/29/22 [facility] Adult [address] [place] [address]- Allergies, Adverse Reactions, Alerts Substance Reaction Severity [...] Refills, Acute 01/03/23 6:10:00 EDT,10/03/22 6:09:00 EDT, [facility]/pharmacy #[id number], Partial fill upon patient request if the [...] Height Start Date: 04/06/22 Status: Ordered Wegovy (1.7 mg dose) subcutaneous solution = 1.7 mg, Subcutaneous Injection, Every week, for 4 week(s), next dose E66.2, # 2.25 mL, 0 Refills,Acute 12/13/22 12:26:00 EDT, 11/15/22 12:26:00 EDT, [id number], Partial fill upon patient request if the prescription is for a schedule II opio... Start Date: 11/15/22 Stop Date: 12/13/22 Status: Ordered Wegovy (1.7 mg dose) subcutaneous solution = 1.7 mg, Subcutaneous Injection, Every week, for 4 week(s), next dose E66.2 3ml, # 3 mL, 0 Refills, Acute 01/10/23 12:26:00 EDT, 12/13/22 12:26:00 EDT, [id number], Partial fill upon patient request if the prescription is for a schedule II op... Start Date: 12/13/22 Stop Date: 01/10/23 Status: Ordered Problem List Condition Confirmation Course Effective Dates Status Health St atus Informant Anxiety Confirmed Active Chronic cervicalgia Confirmed Active Low back pain Confirmed Active Headache, migraine Confirmed Active Social History Social History Type Response Smoking Status Never (less than 100 in lifetime) entered on: 11/11/19 Sex Patient Care team information Care Team Personnel Name: Mckay Stokes MD Position: [facility] Physician - Primary Care Member Role: PCP Address: Address: [address] [place] [address]- Care Team Related Persons Name: ILSA MABLE Address: [place] [address]
--- OUTSIDE RECORDS SUMMARY | 2024-05-29 13:43 | XMS_ITS | Continuity of Care Document ---
Author Organization [facility] Ermias Hdez Peterson lt Address [address] [place] [address]- Care Team Providers Care Bag Sorter Name Role Phone Divya LINDA, Mckay Oliveira Primary Care Physician [place] [facility] [place] Date(s): 10/29/22 - 11/28/22 [facility] Adult [address] [place] [address]- Allergies, Adverse Reactions, Alerts Substance Reaction Severity [...] Refills, Acute 01/03/23 6:10:00 EDT,10/03/22 6:09:00 EDT, [facility]/pharmacy #[id number], Partial fill upon patient request if the [...] Team Personnel Name: Mckay Stokes MD Position: [facility] Physician - Primary Care Member Role: PCP Address: Address: [address] [place] [address]- Care Team Related Persons Name: MABLE ROSENBAUM Address: [place] [address]
--- OUTSIDE RECORDS SUMMARY | 2024-05-29 13:43 | XMS_ITS | Continuity of Care Document ---
Author Organization [facility] Ermias Hdez Peterson lt Address [address] [place] [address]- Care Team Providers Care Regional Psychiatric Director Name Role Phone Divya LINDA, Mckay Oliveira Primary Care Physician [phone] [place] [facility] [place](s): 04/11/23 - 05/11/23 [facility] Adult [address] [place] [address]- Allergies, Adverse Reactions, Alerts Substance Reaction Severity [...] Spasm, # 30 capsule, 2 Refills, Acute 07/16/23 7:47:00 EST,04/15/23 7:47:00 EDT, [facility], Partial fill upon patient request if the prescription is for a schedule II opioid drug., 1 cap... Start Date: 04/15/23 Stop Date: 07/16/23 Status: Ordered PARoxetine 7.5 mg oral capsule 1 capsule, By Mouth, Daily at bedtime, # 90 capsule, 3 Refills, Maintenance, 04/06/22 5:32:00 EDT, [facility], 160.2, cm, 12/02/20 8:48:00 EDT, Height Start Date: 04/06/22 Status: Ordered Wegovy (2.4 mg dose) subcutaneous solution = 2.4 mg, Subcutaneous Injection, Every week, E66.2 90 days supply, # 9 mL, 3 Refills, Maintenance,01/24/23 12:16:00 EDT, [facility], Partial fill upon patient request if [...] Team Personnel Name: Mckay Stokes MD Position: [facility] Physician - Primary Care Member Role: PCP Address: Address: [address] [place] [address]- Care Team Related Persons Name: MABLE ROSENBAUM Address: [place] [address]
--- OUTSIDE RECORDS SUMMARY | 2024-05-29 13:43 | XMS_ITS | Continuity of Care Document ---
Author Organization [facility] Peterson lt Address [address] [place] [address]- Care Team Providers Care Assembler [employer] Spider Name Role Phone Divya LINDA, Mckay Oliveira Primary Care Physician [place] [facility] [place]21 - 07/09/21 [facility] Adult [address] [place] [address]- Allergies, Adverse Reactions, Alerts Substance Reaction Severity [...]
--- OUTSIDE RECORDS SUMMARY | 2024-05-29 13:43 | XMS_ITS | Continuity of Care Document ---
Author Organization [facility] Ermias Hdez Peterson lt Address [address] [place] [address]- Care Team Providers Care Hospital Administrator Name Role Phone Divya LINDA, Mckay Oliveira Primary Care Physician Encounter [facility] Date(s): 04/15/24 - 05/15/24 [facility] Ermias Hdez Adult [address] [place] [address]- Attending Physician: Sushant Medel Admitting Physician: AdmSushant [...] 9 mL, 3 Refills, Maintenance,01/24/23 12:16:00 EDT, [facility], Partial fill upon patient [...] 100 in lifetime) entered on: 11/11/19 Sex Laboratory * Event Display: Non Lab Results Authored Date: Radiology * Event Display: X-Ray Chest, Non- Authored Date: MG Breast Views * Event Display: MM Mammogram Authored Date: * Event Display: MM Mammogram Authored Date: * Event Display: MM Mammogram Authored Date: Patient Care team information Care Team Personnel Name: Mckay Stokes MD Position: S Physician - Primary Care Member Role: PCP Address: Address: [address] [place] [address]- Care Team Related Persons Name: MABLE ROSENBAUM Address: [place] [address]
--- OUTSIDE RECORDS SUMMARY | 2024-05-29 13:43 | XMS_ITS | Continuity of Care Document ---
Author Organization [facility] Ermias Hdez Peterson lt Address [address] [place] [address]- Care Team Providers Care Refrigeration Lead Name Role Phone Divya LINDA, Mckay Oliveira Primary Care Physician [phone] Encounter [facility] Date(s): 05/24/23 - 06/23/23 [facility] Adult [address] [place] [address]- Allergies, Adverse Reactions, Alerts Substance Reaction Severity [...] Refills, Acute 07/16/23 7:47:00 EST,04/15/23 7:47:00 EDT, [facility], Partial fill upon patient request [...] 9 mL, 3 Refills, Maintenance,01/24/23 12:16:00 EDT, [facility], Partial fill upon patient request if [...] Team Personnel Name: Mckay Stokes MD Position: [facility] Physician - Primary Care Member Role: PCP Address: Address: [address] [place] [address]- Care Team Related Persons Name: MABLE ROSENBAUM Address: [place] [address]
--- OUTSIDE RECORDS SUMMARY | 2024-05-29 13:43 | XMS_ITS | Continuity of Care Document ---
Author Organization [facility] Ermias Hdez Peterson lt Address [address] [place] [address]- Care Team Providers Care Mammal Control Agent Name Role Phone Divya LINDA, Mckay Oliveira Primary Care Physician [phone] En[place] [facility] Date(s): 11/16/22 - 12/16/22 [facility] Ermias Hdez Adult [address] [place] [address]- Allergies, Adverse Reactions, Alerts Substance Reaction Severity [...] Refills, Acute 01/03/23 6:10:00 EDT,10/03/22 6:09:00 EDT, [facility]/pharmacy #[id number], Partial fill upon patient request if the [...] mL, 3 Refills, Maintenance, 12/12/22 15:33:00 EDT, [facility]/pharmacy #[id number], Partial fill upon patient request if [...] Care Team Personnel Name: Divya LINDA, Mckay Oliveria Position: [facility] Physician - Primary Care Member Role: PCP Address: Address: [address] [place] [address] [place] [address]- Care Team Related Persons Name: MABLE ROSENBAUM Address: [place] [address]
--- OUTSIDE RECORDS SUMMARY | 2024-05-29 13:43 | XMS_ITS | Continuity of Care Document ---
Author Organization [facility] Ermias Hdez Peterson lt Address [address] [place] [address]- Care Team Providers Care Manager Of Tires Sales Name Role Phone Divya LINDA, Mckay Oliveira Primary Care Physician Encounter [facility] Date(s): 07/29/23 - 08/28/23 [facility] Ermias Hdez Adult [address] [place] [address]- Allergies, Adverse Reactions, Alerts Substance Reaction Severity [...] 9 mL, 3 Refills, Maintenance,01/24/23 12:16:00 EDT, [facility], Partial fill upon patient request [...] Personnel Name: Divya LINDA, Mckay Oliveira Position: [facility] Physician - Primary Care Member Role: PCP Address: Address: [address] [place] [address] [place] [address]- Care Team Related Persons Name: MABLE ROSENBAUM Address: [place] [address]
--- OUTSIDE RECORDS SUMMARY | 2024-05-29 13:43 | XMS_ITS | Continuity of Care Document ---
Author Organization [facility] Ermias Hdez Peterson lt Address [address] [place] [address]- Care Team Providers Care Solution Sales Senior Executive Name Role Phone Divya LINDA, Mckay Oliveira Primary Care Physician [place] [facility] [place] 11[place]15/22 - 12/15/22 [facility] Ermias Hdez Adult [address] [place] [address]- Allergies, Adverse Reactions, Alerts Substance Reaction Severity [...] Refills, Acute 01/03/23 6:10:00 EDT,10/03/22 6:09:00 EDT, [facility]/pharmacy #[id number], Partial fill upon patient request if the [...] mL, 3 Refills, Maintenance, 12/12/22 15:33:00 EDT, [facility]/pharmacy #[id number], Partial fill upon patient request if [...] Personnel Name: Divya LINDA, Mckay Oliveira Position: [facility] Physician - Primary Care Member Role: PCP Address: Address: [address] [place] [address] [place] [address]- Care Team Related Persons Name: MABLE ROSENBAUM Address: [place] [address]
--- OUTSIDE RECORDS SUMMARY | 2024-05-29 13:43 | XMS_ITS | Continuity of Care Document ---
Author Organization [facility] Ermias Hdez Peterson lt Address [address] [place] [address]- Care Team Providers Care Instructor Technical Training Name Role Phone Divya LINDA, Mckay Oliveira Primary Care Physician Encounter [facility] Date(s): 10/12/22 - 11/11/22 [facility] [place] Adult [address] [place] [address]- Allergies, Adverse Reactions, Alerts Substance Reaction Severity [...] Refills, Acute 01/03/23 6:10:00 EDT,10/03/22 6:09:00 EDT, [facility]/pharmacy #[id number], Partial fill upon patient request if the [...] Refills,Acute 11/26/22 15:49:00 EDT, 10/29/22 15:49:00 EDT, [facility]/pharmacy #[id number], Partial fill upon patient request [...] Team Personnel Name: Mckay Stokes MD Position: [facility] Primary Care Physician Member Role: PCP Address: Address: [address] [place] [address] Adult [facility] [place] [address]- Care Team Related Persons Name: MABLE ROSENBAUM Address: [place] [address]
--- OUTSIDE RECORDS SUMMARY | 2024-05-29 13:43 | XMS_ITS | Continuity of Care Document ---
Author Organization [facility] Ermias Hdez Peterson lt Address [address] [place] [address]- Care Team Providers Care Mandolin Repairer Name Role Phone Mckay Stokes MD Primary Care Physician [phone] En[place] [facility] [place] Date(s): 10/02/22 - 10/09/22 [facility] [place] Adult [address] [place] [address]- Attending Physician: Mckay Stokes MD Allergies, Adverse Reactions, Alerts Substance Reaction [...] Refills, Acute 01/03/23 6:10:00 EDT,10/03/22 6:09:00 EDT, [facility]/pharmacy #[id number], Partial fill upon patient request if the [...] Height Start Date: 04/06/22 Status: Ordered Wegovy (0.25 mg dose) subcutaneous solution = 0.25 mg, Subcutaneous Infusion, Every 7 days, # 2 mL, 2 Refills, Acute 01/03/23 6:09:00 EDT, 10/03/22 6:08:00 EDT, [facility]/pharmacy #[id number], Partial fill upon patient request if the prescription is for aschedule II opioid drug., 160.8, cm, 10/02/22 16:11... Start Date: 10/03/22 Stop Date: 01/03/23 Status: Ordered Problem List Condition Confirmation Course Effective Dates Status Health St atus Informant Anxiety Confirmed Active Chronic cervicalgia Confirmed Active Low back pain Confirmed Active Headache, migraine Confirmed Active Vital Signs Most recent to oldest [Reference Range]: 1 Height 160.8 cm (10/02/22 4:11 PM) Weight 75.6 kg (10/02/22 4:11 PM) Oxygen Saturation [94-100 %] 99 % (10/02/22 4:11 PM) Pulse Rate [55-90 bpm] 86 bpm (10/02/22 4:11 PM) Body Mass Index [18.5-24.99 kg/m2] 29.24 kg/m2 *H* (10/02/22 4:11 PM) Blood Pressure [90-138/55-84 mm Hg] 110/ 62mm Hg (10/02/22 4:11 PM) Blood pressure sites Arm, right (10/02/22 4:11 PM) Weight Obtained Via Standing scale (10/02/22 4:11 PM) Social History Social History Type Response Smoking Status Never (less than 100 in lifetime) entered on: 11/11/19 Sex Patient Care team information Care Team Personnel Name: Mckay Stokes MD Position: S Primary Care Physician Member Role: PCP Address: Address: [address] [place] [address]- Care Team Related Persons Name: MABLE ROSENBAUM Address: [place] [address]
--- OUTSIDE RECORDS SUMMARY | 2024-05-29 13:43 | XMS_ITS | Continuity of Care Document ---
Author Organization [facility] Ermias Hdez Peterson lt Address [address] [place] [address]- Care Team Providers Care Health Care Manager Name Role Phone Divya LINDA, Mckay Oliveira Primary Care Physician En[place] [facility] [place] Date(s): 01/11/23 - 02/10/23 [facility] [place] Adult [address] [place] [address]- Allergies, Adverse Reactions, Alerts Substance Reaction Severity [...] Care team information Care Team Personnel Name: iDvya LINDA, Mckay Oliveira Position: [facility] Physician - Primary Care Member Role: PCP Address: Address: [address] [place] [address] [place] [address]- Care Team Related Persons Name: MABLE ROSENBAUM Address: [place] [address]
--- OUTSIDE RECORDS SUMMARY | 2024-05-29 13:43 | XMS_ITS | Continuity of Care Document ---
Author Organization [facility] eLmuel Peterson lt Address [address] [place] [address]- Care Team Providers Care Registered Nurses Name Role Phone Divya LINDA, Mckay Oliveira Primary Care Physician Encounter [facility] Date(s): 09/29/20 - 10/29/20 [facility] Adult [address] [place] [address]- Allergies, Adverse Reactions, Alerts Substance Reaction Severity Status sulfADIAZINE Active Immunizations Given and Recorded Vaccine Date Status Refusal Reason SARS-CoV-2 (COVID-19) mRNA BNT-162b2 vac 07/27/20 Recorded Medications acetaminophen/butalbital/caffeine 325 mg-50 mg-40 mg oral tablet 1 tablet, By Mouth, Every 4 hours, PRN for pain, for 30 days, # 30 tablet, 0 Refills, Acute 10/30/20 10:49:00 EDT, 09/30/20 10:49:00 EDT, [id number], Partial fill upon patient requestif the prescription is for a schedule II opioid javi... Start Date: 09/30/20 Stop Date: 10/30/20 Status: Ordered Voltaren 1% topical gel = 2 Gm, Topically, 4 times a day, # 240 Gm, 0 Refills, Maintenance, 06/09/19 13:55:26 EST, 2 Gm Topically 4 times a day Start Date: 06/09/19 Status: Ordered Problem List Condition Effective Dates Status Health Status Inform ant Anxiety(Confirmed) Active Chronic cervicalgia(Confirmed) Active Low back pain(Confirmed) Active Headache, migraine(Confirmed) Active Social History Social History Type Response Smoking Status Never (less than 100 in lifetime) entered on: 11/11/19 Sex
--- OUTSIDE RECORDS SUMMARY | 2024-05-29 13:43 | XMS_ITS | Continuity of Care Document ---
Author Organization [facility] Ermias Hdez Peterson lt Address [address] [place] [address]- Care Team Providers Care Lpn Care Manager Name Role Phone Divya LINDA, Mckay Oliveira Primary Care Physician [place] [facility] [place] Date(s): 04/19/23 - 05/19/23 [facility] [place] Adult [address] [place] [address]- Allergies, Adverse Reactions, Alerts Substance Reaction Severity [...] Refills, Acute 07/16/23 7:47:00 EST,04/15/23 7:47:00 EDT, [facility], Partial fill upon [...] 9 mL, 3 Refills, Maintenance,01/24/23 12:16:00 EDT, [facility], Partial fill upon patient request [...] Team Personnel Name: Mckay Stokes MD Position: [facility] Physician - Primary Care Member Role: PCP Address: Address: [address] [place] [address]- Care Team Related Persons Name: MABLE ROSENBAUM Address: [place] [address]
--- OUTSIDE RECORDS SUMMARY | 2024-05-29 13:43 | XMS_ITS | Continuity of Care Document ---
Author Organization [facility] Lem[place] Peterson lt Address [address] [place] [address]- Care Team Providers Care Monorail Charger Operator Name Role Phone Divya LINDA, Mckay Oliveira Primary Care Physician Encounter [facility] Date(s): 04/06/21 - 05/07/21 [facility] Adult [address] [place] [address]- Attending Physician: Not on Staff, Attending MD [...]
--- OUTSIDE RECORDS SUMMARY | 2024-05-29 13:43 | XMS_ITS | Continuity of Care Document ---
Author Organization [facility] Lemuel Peterson lt Address [address] [place] [address]- Care Team Providers Care Lead Mason Tender Name Role Phone Divya LINDA, Mckay Oliveira Primary Care Physician [phone] Encounter [facility] Date(s): 04/13/24 - 05/13/24 [facility] [place] Adult [address] [place] [address]- Allergies, Adverse Reactions, Alerts Substance Reaction Severity [...] 9 mL, 3 Refills, Maintenance,01/24/23 12:16:00 EDT, [facility], Partial fill upon patient request if [...] Primary Care Member Role: PCP Address: Address: [address] [place] [address] Road [facility] [place] [address]- Care Team Related Persons Name: MABLE ROSENBAUM Address: [place] [address]
--- OUTSIDE RECORDS SUMMARY | 2024-05-29 13:43 | XMS_ITS | Continuity of Care Document ---
Author Organization [facility] Address [address] [place] [address]- Care Team Providers Care Development Engineer Name Role Phone Divya LINDA, Mckay Oliveira Primary Care Physician Encounter [place] Date(s): 09/04/19 - 09/14/19 [facility] [address] [place] [address]- [facility] Attending Physician: AdmSushant quan Admitting Physician: Admtr, Ar8 Referring Physician: Admtr, Ar8 Allergies, Adverse Reactions, Alerts Substance Reaction Severity Status sulfADIAZINE Active Medications Voltaren 1% topical gel = 2 Gm, Topically, 4 times a day, # 240 Gm, 0 Refills, Maintenance, 06/09/19 13:55:26 EST, 2 Gm Topically 4 times a day Start Date: 06/09/19 Status: Ordered
--- OUTSIDE RECORDS SUMMARY | 2024-05-29 13:43 | XMS_ITS | Continuity of Care Document ---
Author Organization [facility] Ermias Hdez Peterson lt Address [address] [place] [address]- Care Team Providers Care Field Services Director Name Role Phone Divya LINDA, Mckay Oliveira Primary Care Physician [place] [facility] [place] Date(s): 12/02/20 - 01/01/21 [facility] Ermias Hdez Adult [address] [place] [address]- Attending Physician: Admtr, Ar8 Admitting Physician: Admtr, [...]
--- OUTSIDE RECORDS SUMMARY | 2024-05-29 13:43 | XMS_ITS | Continuity of Care Document ---
Author Organization [facility] Address [address] [place] [address]- Care Team Providers Care Osteology Teacher Name Role Phone Mckay Stokes MD Primary Care Physician En[place] [facility] Date(s): 06/09/19 - 08/20/19 [facility] [address] [place] [address] [facility] Attending Physician: Bee Lai MD Admitting Physician: Bee Lai MD Referring Physician: Mckay tSokes MD Allergies, Adverse Reactions, Alerts Substance Reaction Severity Status sulfADIAZINE Active Medications Voltaren 1% topical gel = 2 Gm, Topically, 4 times a day, # 240 Gm, 0 Refills, Maintenance, 06/09/19 13:55:26 EST, 2 Gm Topically 4 times a day Start Date: 06/09/19 Status: Ordered
--- OUTSIDE RECORDS SUMMARY | 2024-05-29 13:43 | XMS_ITS | Continuity of Care Document ---
Author Organization [facility] Address [address] [place] [address]- Care Team Providers Care Dental Service Technician Name Role Phone Mckay Stokes MD Primary Care Physician Encounter [facility] Date(s): 07/14/19 - 10/04/19 [facility] [address] [place] [address] [facility] Attending Physician: Bee Lai MD Admitting Physician: Bee Lai MD Referring Physician: Mckay Stokes MD Allergies, Adverse Reactions, Alerts Substance Reaction Severity Status sulfADIAZINE Active Medications Voltaren 1% topical gel = 2 Gm, Topically, 4 times a day, # 240 Gm, 0 Refills, Maintenance, 06/09/19 13:55:26 EST, 2 Gm Topically 4 times a day Start Date: 06/09/19 Status: Ordered
--- OUTSIDE RECORDS SUMMARY | 2024-05-29 13:43 | XMS_ITS | Continuity of Care Document ---
Author Organization [facility] Ermias Hdez Peterson lt Address [address] [place] [address]- Care Team Providers Care Business Office Specialist Name Role Phone Divya LINDA, Mckay Oliveira Primary Care Physician Encounter [facility] Date(s): 10/10/22 - 11/09/22 [facility] [place] Adult [address] [place] [address]- Allergies, Adverse Reactions, Alerts Substance Reaction Severity [...] Refills, Acute 01/03/23 6:10:00 EDT,10/03/22 6:09:00 EDT, [facility]/pharmacy #[id number], Partial fill upon patient request if the [...] Refills,Acute 11/26/22 15:49:00 EDT, 10/29/22 15:49:00 EDT, [facility]/pharmacy #[id number], Partial fill upon patient request [...] Team Personnel Name: Mckay Stokes MD Position: [facility] Primary Care Physician Member Role: PCP Address: Address: [address] [place] [address] [facility] [place] [address]- Care Team Related Persons Name: MABLE ROSENBAUM Address: [place] [address]
--- OUTSIDE RECORDS SUMMARY | 2024-05-29 13:43 | XMS_ITS | Continuity of Care Document ---
Author Organization [facility] Lemuel Peterson lt Address [address] [place] [address]- Care Team Providers Care Radiation Control Worker Name Role Phone Divya LINDA, Mckay Oliveira Primary Care Physician [phone] Encounter [facility] [place] Date(s): 11/28/22 - 12/28/22 [facility] [place] Adult [address] [place] [address]- Allergies, Adverse Reactions, Alerts Substance Reaction Severity [...] Refills, Acute 01/03/23 6:10:00 EDT,10/03/22 6:09:00 EDT, [facility]/pharmacy #[id number], Partial fill upon patient request if the [...] mL, 3 Refills, Maintenance, 12/12/22 15:33:00 EDT, [facility]/pharmacy #[id number], Partial fill upon patient [...] Personnel Name: Divya LINDA, Mckay Oliveira Position: [facility] Physician - Primary Care Member Role: PCP Address: Address: [address] [place] [address] [place] [address]- Care Team Related Persons Name: MABLE ROSENBAUM Address: [place] [address]
--- OUTSIDE RECORDS SUMMARY | 2024-05-29 13:43 | XMS_ITS | Continuity of Care Document ---
Author Organization [facility] Lemuel Peterson lt Address [address] [place] [address]- Care Team Providers Care Sales Professional Bilingual Name Role Phone Divya LINDA, Mckay Oliveira Primary Care Physician [phone] [place] [facility] [place](s): 06/26/22 - 07/26/22 [facility] Adult [address] [place] [address]- Allergies, Adverse Reactions, Alerts Substance Reaction Severity [...] EDT, Height Start Date: 04/06/22 Status: Ordered Problem List Condition Confirmation Course Effective Dates Status Health St atus Informant Anxiety Confirmed Active Chronic cervicalgia Confirmed Active Low back pain Confirmed Active Headache, migraine Confirmed Active Social History Social History Type Response Smoking Status Never (less than 100 in lifetime) entered on: 11/11/19 Sex Patient Care team information Care Team Personnel Name: Divya LINDA, Mckay Oliveira Position: [facility] Primary Care Physician Member Role: PCP Address: Address: [address] [place] [address]- Care Team Related Persons Name: MABLE ROSENBAUM Address: [place] [address]
--- OUTSIDE RECORDS SUMMARY | 2024-05-29 13:43 | XMS_ITS | Continuity of Care Document ---
Author Organization [facility] Ermias Hdez Peterson lt Address [address] [place] [address]- Care Team Providers Care Painter And Grader Cork Name Role Phone Mckay Stokes MD Primary Care Physician [phone] [facility] [place] Date(s): 12/02/20 - 12/09/20 [facility] [place] Adult [address] [place] [address]- Attending Physician: Mckay Stokes MD Allergies, Adverse [...] Low back pain(Confirmed) Active Headache, migraine(Confirmed) Active Vital Signs Most recent to oldest [Reference Range]: 1 Height 160.2 cm (12/02/20 8:48 AM) Weight 70.9 kg (12/02/20 8:48 AM) Oxygen Saturation [94-100 %] 99 % (12/02/20 8:48 AM) Pulse Rate [55-90 bpm] 82 bpm (12/02/20 8:48 AM) Body Mass Index [18.5-24.99] 27.63 *H* (12/02/20 8:48 AM) Blood Pressure [90-138/55-84 mm Hg] 110/ 80mm Hg (12/02/20 8:48 AM) Temperature [96.8-100.4 DegF] 98.7 DegF (12/02/20 8:48 AM) Mode of Delivery (Oxygen) Room air (12/02/20 8:48 AM) Blood pressure sites Arm, right (12/02/20 8:48 AM) Temperature Route Oral (12/02/20 8:48 AM) Weight Obtained Via Standing scale (12/02/20 8:48 AM) Social History Social History Type Response Smoking Status Never (less than 100 in lifetime) entered on: 11/11/19 Sex
--- OUTSIDE RECORDS SUMMARY | 2024-05-29 13:43 | XMS_ITS | Continuity of Care Document ---
Author Organization [facility] Ermias Hdez Peterson lt Address [address] [place] [address]- Care Team Providers Care Chain Saw Driver Name Role Phone Divya LINDA, Mckay Oliveira Primary Care Physician Encounter [facility] [place] Date(s): 07/24/23 - 08/23/23 [facility] Ermias Hdez Adult [address] [place] [address]- Allergies, Adverse Reactions, Alerts Substance Reaction Severity [...] Personnel Name: Divya LINDA, Mckay Oliveira Position: [facility] Physician - Primary Care Member Role: PCP Address: Address: [address] [place] [address] [place] [address]- Care Team Related Persons Name: MABLE ROSENBAUM Address: [place] [address]
--- OUTSIDE RECORDS SUMMARY | 2024-05-29 13:43 | XMS_ITS | Continuity of Care Document ---
Author Organization [facility] Ermias Hdez Peterson lt Address [address] [place] [address]- Care Team Providers Care Sales Secretary Name Role Phone Divya LINDA, Mckay Oliveira Primary Care Physician [facility] [place] [place] Date(s): 12/12/22 - 01/11/23 [facility] [place] Adult [address] [place] [address]- Allergies, Adverse Reactions, Alerts Substance Reaction Severity [...] 3 Refills, Maintenance, 12/12/22 15:33:00 EDT, [id number], Partial fill upon patient request if the [...] Team Personnel Name: Mckay Stokes MD Position: [facility] Physician - Primary Care Member Role: PCP Address: Address: [address] [place] [address]- Care Team Related Persons Name: MABLE ROSENBAUM Address: [place] [address]
--- OUTSIDE RECORDS SUMMARY | 2024-05-29 13:43 | XMS_ITS | Continuity of Care Document ---
Author Organization [facility] Ermias Hdez Peterson lt Address [address] [place] [address]- Care Team Providers Care Parts Casting Machine Operator Name Role Phone Mckay Stokes MD Primary Care Physician [place] [facility] [id number] Date(s): 11/11/19 - 11/18/19 [facility] [place] Adult [address] [place] [address]- [facility] Attending Physician: Mckay Stokes MD Allergies, Adverse Reactions, Alerts Substance Reaction Severity Status sulfADIAZINE Active Medications acetaminophen/butalbital/caffeine 300 mg-50 mg-40 mg oral capsule 1 capsule, By Mouth, Every 4 hours, PRN as needed, # 30 capsule, 5 Refills, Acute 05/13/20 11:15:00EST, 11/11/19 11:15:00 EDT, Capsule, [id number], 1 capsule By Mouth Every 4 hours,PRN:as needed Start Date: 11/11/19 Stop Date: 05/13/20 Status: Ordered Voltaren 1% topical gel = [...]
--- OUTSIDE RECORDS SUMMARY | 2024-05-29 13:43 | XMS_ITS | Continuity of Care Document ---
Author Organization [facility] Ermias Hdez Peterson lt Address [address] [place] [address]- Care Team Providers Care Rattling Machine Tender Name Role Phone Divya LINDA, Mckay Oliveira Primary Care Physician Encounter [facility] [place] Date(s): 11/11/19 - 12/11/19 [facility] Adult [address] [place] [address]- [facility] Attending Physician: Admtr, Ar8 Admitting Physician: Admtr, [...]
--- OUTSIDE RECORDS SUMMARY | 2024-05-29 13:43 | XMS_ITS | Continuity of Care Document ---
Author Organization [facility] Ermias Hdez Peterson lt Address [address] [place] [address]- Care Team Providers Care Renal Dialysis Rn Name Role Phone Divya LINDA, Mckay Oliveira Primary Care Physician Encounter [facility] [place] Date(s): 06/10/23 - 07/10/23 [facility] Ermias Hdez Adult [address] [place] [address]- Allergies, Adverse Reactions, Alerts Substance Reaction Severity [...] Refills, Acute 07/16/23 7:47:00 EST,04/15/23 7:47:00 EDT, [facility], Partial fill upon patient [...] 9 mL, 3 Refills, Maintenance,01/24/23 12:16:00 EDT[facility], Partial fill upon patient request [...] Team Personnel Name: Mckay Stokes MD Position: [facility] Physician - Primary Care Member Role: PCP Address: Address: [address] [place] [address]- Care Team Related Persons Name: MABLE ROSENBAUM Address: [place] [address]
--- OUTSIDE RECORDS SUMMARY | 2024-05-29 13:43 | XMS_ITS | Continuity of Care Document ---
Author Organization [facility] Ermias Hdez Peterson lt Address [address] [place] [address]- Care Team Providers Care Metal Checker Name Role Phone Divya LINDA, Mckay Oliveira Primary Care Physician [phone] [place] [facility] [place] 09[place]25/22 - 10/25/22 [facility] [place] Adult [address] [place] [address]- Allergies, Adverse Reactions, Alerts Substance Reaction Severity [...] Refills, Acute 01/03/23 6:10:00 EDT,10/03/22 6:09:00 EDT, [facility]pharm[facility] #[id number], Partial fill upon patient request if the [...] Height Start Date: 04/06/22 Status: Ordered Wegovy (0.5 mg dose) subcutaneous solution = 0.5 mg, Subcutaneous Injection, Every week, for 4 week(s), in the abdomen, thigh, or upper arm E66.2, # 2 mL, 0 Refills, Acute 11/09/22 11:00:00 EDT, 10/12/22 11:00:00 EDT, [id number], Partial fill upon patient request if the prescription i... Start Date: 10/12/22 Stop Date: 11/09/22 Status: Ordered Problem List Condition Confirmation Course Effective Dates Status Health St atus Informant Anxiety Confirmed Active Chronic cervicalgia Confirmed Active Low back pain Confirmed Active Headache, migraine Confirmed Active Social History Social History Type Response Smoking Status Never (less than 100 in lifetime) entered on: 11/11/19 Sex Patient Care team information Care Team Personnel Name: Mckay Stokes MD Position: [facility] Primary Care Physician Member Role: PCP Address: Address: [address] [place] [address] Adult [facility] [place] [address]- Care Team Related Persons Name: MABLE ROSENBAUM Address: [place] [address]
--- OUTSIDE RECORDS SUMMARY | 2024-05-29 13:43 | XMS_ITS | Continuity of Care Document ---
Author Organization [facility] Ermias Hdez Peterson lt Address [address] [place] [address]- Care Team Providers Care Financial Analyst Intern Name Role Phone Divya LINDA, Mckay Oliveira Primary Care Physician [place] [facility] [place] 10/02/22 - 11/01/22 [facility] Ermias Hdez Adult [address] [place] [address]- Attending Physician: Admtr, Ar8 Admitting Physician: Admtr, [...] Refills, Acute 01/03/23 6:10:00 EDT,10/03/22 6:09:00 EDT, [id number], Partial fill upon patient request if the [...] Date: 10/12/22 Stop Date: 11/09/22 Status: Ordered Wegovy (1 mg dose) subcutaneous solution = 1 mg, Subcutaneous Injection, Every week, for 4 week(s), increased dose E66.2, # 2 mL, 0 Refills,Acute 11/26/22 15:49:00 EDT, 10/29/22 15:49:00 EDT, [id number], Partial fill upon patient [...] lifetime) entered on: 11/11/19 Sex Note * Event Display: X-Ray Chest, Non- BH Authored Date: * Event Display: Non BH Lab Results Authored Date: MG Breast Views * Event Display: MM Mammogram Authored Date: * Event Display: MM Mammogram Authored Date: * Event Display: MM Mammogram Authored Date: Patient Care team information Care Team Personnel Name: Mckay Stokes MD Position: [facility] Primary Care Physician Member Role: PCP Address: Address: [address] [place] [address] [place] [address]- Care Team Related Persons Name: MABLE ROSENBAUM Address: [place] [address]
--- OUTSIDE RECORDS SUMMARY | 2024-05-29 13:43 | XMS_ITS | Continuity of Care Document ---
Author Organization [facility] Address [address] [place] [address]- Care Team Providers Care Transformer Tester Name Role Phone Divya LINDA, Mckay Oliveira Primary Care Physician [phone] [id number] Date(s): 05/23/24 - 05/24/[address] [address]- Encounter Diagnosis Chest pain(Final) - 05/24/24 Chest pain(Final) - 05/24/24 Transaminitis(Final) - 05/24/24 Abdominal pain(Final) - 05/24/24 Discharge Disposition: A-D/C Home Attending Physician: Chetna Orellana DO Admitting Physician: Chetna Orellana DO Referring Physician: Not on Staff, Referring MD Encounter Type: Disch ES Allergies, Adverse Reactions, Alerts Substance Criticality Severity Reaction Reaction Severity Status sulfADIAZINE Active Immunizations Given [...] 30 capsule, 1 Refills, Maintenance, 04/06/22 5:32:00 AM EDT, [facility], 0, TAKE 1 CAPSULE EVERY 4 HOURS NEEDED FOR HEADACHE, 160.2, cm, 12/02/20 8:48:00 EDT, Height Start Date: 04/06/22 Status: Ordered Quantity: 30.0 Unit: capsule Repeat number: 1 MorPHINE Inj 4 mg, Injection, IV Push Slowly, Every 5 minutes for 3 doses/times, PRN for Pain , Moderate, and SBP greater than 100, Routine, 05/23/24 10:45:00 PM EST Start Date: 05/23/24 Stop Date: 05/24/24 Status: Discontinued Repeat number: 1 PARoxetine 7.5 mg oral capsule 1 capsule, By Mouth, Daily at bedtime, # 90 capsule, 3 Refills, Maintenance, 04/06/22 5:32:00 AM EDT, [facility], 160.2, cm, 12/02/20 8:48:00 EDT, Height Start Date: 04/06/22 Status: Ordered Quantity: 90.0 Unit: capsule Repeat number: 1 Wegovy (2.4 mg dose) subcutaneous solution = 2.4 mg, Subcutaneous Injection, Every week, E66.2 90 days supply, # 9 mL, 3 Refills, Maintenance,01/24/23 12:16:00 PM EDT, [facility], Partial fill upon patient request if the prescription is for a schedule II opioid drug.E66.2; 90 days supply, 160.8, cm, 10/02/22 16:11:00 EDT, Height Start Date: 01/24/23 Status: Ordered Quantity: 9.0 Unit: mL Repeat number: 4 Problem List Condition Confirmation Course Effective Dates Status Health St atus Informant Anxiety Confirmed Active Chronic cervicalgia Confirmed Active Low back pain Confirmed Active Headache, migraine Confirmed Active Results Radiology Reports * Exam Date Time Procedure Performing Provider Status 05/24/24 12:[address] Abd/Pelvis W/ IV Contrast Only Crystal Krishnamurthy (Verified) Notes: (CT Abd/Pelvis W/ IV Contrast Only) Reason For Exam: upper abdominal pain-equiv xr for free air;Other: RESULT: CT Abd/Pelvis W/ IV Contrast Only CT Abd/Pelvis W/ IV Contrast Only Hx of Present Illness: pt began having upper abd chest pain around 7:45pm, states it is 7 10 at rest and 10 10 w movement, endorses some associated SOB, denies N V, no cardiac hx, per EMS elevations in V1 and V2; Reason: upper abdominal pain-equiv xr for free air; Clinical Question(s): Biliary Obstruction; perforated ulcer TECHNIQUE: Spiral CT through the abdomen and pelvis with IV contrast formatted in 3 planes. 75 cc of Isovue 300 was administered intravenously. This study was performed without oral contrast. Weight-based protocol using automatic tube modulation was used to optimize exposure parameters. CTDIvol Body: 14.00 mGy, DLP Body: 699 mGy*cm. COMPARISON: None. FINDINGS: Export Freight Clerk View Findings, Lines and Tubes: None. Visualized Chest: Lung bases are clear. No pleural effusion. The heart is normal in size. No pericardial effusion. Diaphragm: Small right Bochdalek hernia. Liver: Subcentimeter hypodensity within the left hepatic lobe, likely a cyst in the absence of known malignancy. Gallbladder: Absent consistent with prior cholecystectomy. Bile ducts: Mild intrahepatic biliary ductal dilation, likely secondary to postcholecystectomy state. No extrahepatic biliary ductal dilation. Spleen: Normal in size. Ill-defined 0.9 cm hypodense lesion (302:60), likely a small hemangioma or cyst. Pancreas: Normal. Adrenal glands: Normal. Kidneys and ureters: No hydronephrosis, stones, or suspicious masses. Bladder: Normal. Reproductive organs: Unremarkable. Stomach, small bowel, and large bowel: Unremarkable stomach, small and large bowel. No evidence of bowel obstruction or acute inflammation. Mild stool retention throughout the colon. Appendix: Normal. Peritoneum and retroperitoneum: No ascites or pneumoperitoneum. No omental or mesenteric lesions. Lymph nodes: No enlarged lymph nodes. Blood vessels: Normal. No aneurysm. No evidence of venous thrombosis. Abdominal and pelvic wall: Very small fat-containing umbilical hernia. Bones: No acute abnormality. IMPRESSION: No evidence of bowel perforation. Mild intrahepatic biliary ductal dilation. This is likely secondary to postcholecystectomy state, however can consider correlation with lab values to exclude biliary obstruction. No CT evidence of obstructing stone or mass. I have personally reviewed the images and I agree with this report. WSN: [id number] Ordering Physician: Saundra Cornelius Dictated By: Fide Zurita MD Dictated Date/Time: 05/24/24 6:20 am Reviewed By: Didier Dior MD Signed By: Didier Dior MD Signed Date/Time: 05/24/24 6:25 am Transcribed By: LUIGIB Transcribed Date/Time: 05/24/24 0:58 am * Exam Date Time Procedure Performing Provider Status 05/23/24 10:57 PM Chest 2 Views Frontal and Lat Laila Petty; Modified Notes: (Chest 2 Views Frontal and Lat) Reason For Exam: Shortness of Breath, Fever;Other: ADDENDUM: Chest 2 Views Frontal and Lat Air is noted immediately beneath the hemidiaphragm., Though this could represent air within colon or possibly stomach given the location. No definite findings of free air appreciated. WSN: [id number] Ordering Physician: Joe Palacio Dictated By: Raciel Arredondo MD Dictated Date/Time: 05/23/24 11:33 p Reviewed By: Raciel Arredondo MD Signed By: Raciel Arredondo MD Signed Date/Time: 05/23/24 11:33 pm Transcribed By: JEANNIE Transcribed Date/Time: 05/23/24 11:32 pm RESULT: Chest 2 Views Frontal and Lat Chest 2 Views Frontal and Lat Hx of Present Illness: pt began having upper abd chest pain around 7:45pm, states it is 7 10 at rest and 10 10 w movement, endorses some associated SOB, denies N V, no cardiac hx, per EMS elevations in V1 and V2; Reason: Other:; Shortness of Breath, Fever; Clinical Question(s): Pneumonia COMPARISON: None. FINDINGS: LINES AND TUBES: None. LUNGS AND PLEURA: Clear lungs. Normal pulmonary vascularity. No pleural effusion. No pneumothorax. HEART, MEDIASTINUM AND ZBIGNIEW: Heart is normal in size. Normal mediastinal and hilar contour. BONES AND SOFT TISSUES: No acute abnormality. IMPRESSION: No acute abnormality. WSN: [id number] Ordering Physician: Joe Palacio Dictated By: Raciel Arredondo MD Dictated Date/Time: 05/23/24 10:50 p Reviewed By: Raciel Arredondo MD Signed By: Raciel Arredondo MD Signed Date/Time: 05/23/24 10:50 pm Transcribed By: JEANNIE Transcribed Date/Time: 05/23/24 10:49 pm Vital Signs Most recent to oldest [Reference Range]: 1 2 3 Oxygen Saturation [94-100 %] 98 % (05/24/24 1:50 AM) 100 % (05/24/24 1:18 AM) 100 % (05/23/24 9:04 PM) Pulse Rate [55-90 bpm] 77 bpm (05/24/24 1:50 AM) 89 bpm (05/24/24 1:18 AM) 72 bpm (05/23/24 9:04 PM) Blood Pressure [90-138/55-84 mm Hg] 131/82mm Hg (05/24/24 1:50 AM) 128/78mm Hg (05/24/24 1:18 AM) 133/70mm Hg (05/23/24 9:04 PM) Respiratory Rate [16-30 br/min] 16 br/min (05/24/24 1:50 AM) 18 br/min (05/24/24 1:18 AM) 18 br/min (05/23/24 11:45 PM) Temperature [96.8-100.4 DegF] 98.4 DegF (05/24/24 1:50 AM) 98.2 DegF (05/23/24 9:04 PM) Mode of Delivery (Oxygen) Room air (05/24/24 1:50 AM) Room air (05/24/24 1:18 AM) Room air (05/23/24 9:04 PM) Blood pressure sites Arm, right (05/24/24 1:50 AM) Arm, right (05/24/24 1:18 AM) Arm, right (05/23/24 9:04 PM) Temperature Route Oral (05/24/24 1:50 AM) Oral (05/23/24 9:04 PM) Social History Social History Type Response Smoking Status Never (less than 100 in lifetime) entered on: 11/11/19 Sex Sex Representation Female (finding) EKG study * Event Display: EKG Authored Date: * Event Display: ECG 12-Lead Authored Date: Please click on pdf link to open report * Event Display: ECG 12-Lead Authored Date: Ventricular Rate: 86 BPM Atrial Rate: 86 BPM P-R Interval: 156 ms QRS Duration: 72 ms Q-T Interval: 380 ms QTC Calculation(Bazett): 454 ms P [place]: 70 degrees R [place]: 39 degrees T [place]: -1 degrees Normal sinus rhythm Normal ECG No previous ECGs available Confirmed by ELEUTERIO WORLEY MD ([id number]) on 05/24/2024 9:14:59 AM [place]: ELEUTERIO WORLEY MD Patient Care team information Care Team Personnel Name: Mckay Stokes MD Position: [facility] Physician - Primary Care Member Role: PCP Address: [address] [place] [address]- Telecom: Care Team Related Persons Name: MABLE ROSENBAUM Insurance Providers Guarantor name: RACH Health Plan Information #: 1 Payer: [facility] Member Number: [id number] Policy Number: NA Group Number: [id number] Health Plan Information #: 2 Payer: [facility] Member Number: [id number] Policy Number: NA Group Number: NA
--- OUTSIDE RECORDS SUMMARY | 2024-05-29 13:43 | XMS_ITS | Continuity of Care Document ---
Author Organization [facility] Ermias Hdez Peterson lt Address [address] [place] [address]- Care Team Providers Care Knurling Machine Operator Name Role Phone Divya LINDA, Mckay Oliveira Primary Care Physician [place] [facility] [place](s): 11/15/22 - 12/15/22 [facility] Ermias Hdez Adult [address] [place] [address]- Allergies, Adverse Reactions, Alerts Substance Reaction Severity [...] Acute 01/03/23 6:10:00 EDT,10/03/22 6:09:00 EDT, [facility]/pharmacy #[id number], Partial fill upon patient request if the [...] 3 Refills, Maintenance, 12/12/22 15:33:00 EDT, [facility]/pharmacy #[id number], Partial fill upon patient request [...] Personnel Name: Divya LINDA, Mckay Oliveira Position: [facility] Physician - Primary Care Member Role: PCP Address: Address: [address] [place] [address] [place] [address]- Care Team Related Persons Name: MABLE ROSENBAUM Address: [place] [address]
--- OUTSIDE RECORDS SUMMARY | 2024-05-29 13:43 | XMS_ITS | Continuity of Care Document ---
Author Organization [facility] Address [address] [place] [address]- Care Team Providers Care Canteen Manager Name Role Phone Mckay Stokes MD Primary Care Physician [place] [facility] [place](s): 07/14/19 - 07/21/19 [facility] [address] [place] [address]- [facility] Attending Physician: Bee Lai MD Admitting [...]
[2024-05-30 18:34] LABS: EBV DNA PCR Not Detected (Not Detected); EBV Source Whole Blood
[2024-06-01 16:22] LABS: CMV DNA PCR Qn Source BLOOD; CMV DNA Qn PCR NOT DETECTED Log IU/mL (NOT DETECTED); CMV DNA Qn Real Time PCR NOT DETECTED (NOT DETECTED)
[2024-06-03 06:58] LABS: Liver Kidney Microsomal Ab <=20.0 U (<=20.0)
[2024-06-03 23:33] LABS: Smooth Muscle Antibody <20 U (<20)
[2024-06-05 08:50] LABS: Liver Cytosol (LC-1) Auto Ab NEGATIVE
== END 2024-05-28 11:36 | disposition home or self-care (01) | DRG 948 ==
LOC: HO.ED 23:49 → HO.EDOVER 05-27 00:08 → HO.S3 05-27 00:47
PROVIDERS: Physician Assistant; Admitting Provider Student in an Organized Health Care Education/Training Program; Emergency Provider Emergency Medicine Emergency Medical Services; PCP Family Medicine; Visit Provider Internal Medicine
DX: R79.89 Other specified abnormal findings of blood chemistry (principal); K83.4 Spasm of sphincter of Oddi; Z79.899 Other long term (current) drug therapy
CPT/HCPCS: 36415; 74181; 76705; 80048; 80053; 80076; 80143; 81001; 83690; 83735; 84484; 85025; 85610; 86015; 86038; 86376; 86704; 86706; 86709; 86803; 87340; 87497; 87798; 93005; 99285; J1171; J2470

== ENCOUNTER → 2024-05-26 23:26 | Outpatient (BNV) | payer OTHER, SELFPAY | PROVIDERS: Admitting Provider Student in an Organized Health Care Education/Training Program; Emergency Provider Emergency Medicine Emergency Medical Services; PCP Family Medicine; Visit Provider Internal Medicine Cardiovascular Disease | DX: R07.9 Chest pain, unspecified (principal); R94.31 Abnormal electrocardiogram [ECG] [EKG] | CPT/HCPCS: 93010 ==

== ENCOUNTER 2024-05-27 00:05 | Outpatient (BNV) | payer OTHER, SELFPAY | END 2024-05-28 09:20 | PROVIDERS: Admitting Provider Student in an Organized Health Care Education/Training Program; Emergency Provider Emergency Medicine Emergency Medical Services; PCP Family Medicine; Visit Provider Radiology Diagnostic Radiology | DX: R10.9 Unspecified abdominal pain (principal); R74.01 Elevation of levels of liver transaminase levels; K76.89 Other specified diseases of liver | CPT/HCPCS: 74181 ==

== ENCOUNTER → 2024-05-27 00:05 | Outpatient (BNV) | payer OTHER, SELFPAY | PROVIDERS: Admitting Provider Student in an Organized Health Care Education/Training Program; Emergency Provider Emergency Medicine Emergency Medical Services; PCP Family Medicine; Visit Provider Internal Medicine Gastroenterology | DX: R74.8 Abnormal levels of other serum enzymes (principal) | CPT/HCPCS: 99223; 99232 ==

== ENCOUNTER → 2024-05-27 00:05 | Outpatient (BNV) | payer OTHER, SELFPAY | PROVIDERS: Admitting Provider Student in an Organized Health Care Education/Training Program; Emergency Provider Emergency Medicine Emergency Medical Services; PCP Family Medicine; Visit Provider Student in an Organized Health Care Education/Training Program | DX: R74.01 Elevation of levels of liver transaminase levels (principal) | CPT/HCPCS: 99222; 99239; 99499 ==

== ENCOUNTER 2024-06-01 07:36 | Outpatient (REF) | payer OTHER, SELFPAY ==
[2024-06-01 08:29] LABS: Alanine Aminotransferase 423 U/L (0-31); Albumin Level 4.3 g/dL (3.5-5.0); Alkaline Phosphatase 120 U/L (39-117); Anion Gap 11 (12-20); Aspartate Amino Transferase 78 U/L (5-31); Bilirubin Direct 0.3 mg/dL (0.0-0.5); Bilirubin Total 0.7 mg/dL (0.0-1.0); Blood Urea Nitrogen 15 mg/dL (9-16); Carbon Dioxide 29 mmol/L (22-29); Chloride 104 mmol/L (96-108); Estimated Glomerular Filt Rate > 60; Glucose Random 106 mg/dL (60-115); Potassium 4.2 mmol/L (3.3-5.1); Sodium 140 mmol/L (135-145); Total Protein 7.3 g/dL (6.5-8.0)
== END 2024-06-01 07:37 | disposition home or self-care (01) ==
LOC: HO.LAB 07:36
PROVIDERS: PCP Family Medicine; Visit Provider Internal Medicine
DX: R74.8 Abnormal levels of other serum enzymes (principal)
CPT/HCPCS: 36415; 80048; 80076

== ENCOUNTER 2024-06-13 08:08 | Outpatient (REF) | payer OTHER, SELFPAY ==
[2024-06-13 10:52] LABS: Alanine Aminotransferase 64 U/L (0-31); Albumin Level 4.1 g/dL (3.5-5.0); Alkaline Phosphatase 67 U/L (39-117); Anion Gap 12 (12-20); Aspartate Amino Transferase 41 U/L (5-31); Bilirubin Total 0.4 mg/dL (0.0-1.0); Blood Urea Nitrogen 10 mg/dL (9-16); Carbon Dioxide 27 mmol/L (22-29); Chloride 106 mmol/L (96-108); Estimated Glomerular Filt Rate > 60; Glucose Random 91 mg/dL (60-115); Potassium 3.7 mmol/L (3.3-5.1); Sodium 141 mmol/L (135-145); Total Protein 6.9 g/dL (6.5-8.0)
--- OUTSIDE RECORDS SUMMARY | 2024-06-17 11:40 | XMS_ITS | Data Portability ---
Author Organization [facility] [address] Address [address] [place] [address] Assessment No assessment recorded. Plan of Treatment Reminders Order Date Submit Date Provider Last Modified By Organization Details Last Modified Time Details Appointments None recorded. Lab None recorded. Referral None recorded. Procedures None recorded. Surgeries None recorded. Imaging None recorded. Medication Orders Aplisol 5 tub. unit/0.1 mL intradermal injection solution 2023 024 [email or web address] [facility]/Pharmacy #[id number], [address] [place], [address], 11:43:17 Patient TargetsNo targets recorded. Patient InstructionsNo instructions recorded. Reason for Referral None Reported. Medical Equipment None Reported. Medications Name Sig Start Date Stop Date Status Note LastModified by Organization Details LastModified Time Aplisol 5 tub. unit/0.1 mL intraderma l injection solution Inject 0.1 mL as needed by intraderm al route as needed. 2023 active Billable units for PPD is one. Units are not the dose. Not Available Not Available Not Available Vitals None Recorded Social History None recorded. Functional Status None recorded. Mental Status None recorded. Family History Nothing Reported. Medical History No medical history recorded. Gynecological HistoryNo gynecological history recorded. Obstetrics History GPAL:G 0 P 0 0 0 0 Past Encounters Encounter ID Performer Location Encounter Start Date Encounter Closed Date Diagnosis/Indication Diagnosis SNOMED-CT Code Diagnosis ICD10 Code [id number] [address] [place] [address] 05/05/2019 08:31:58 05/05/2019 08:52:46 [id number] [place] [address] [facility] [place] H[place] [address] 07/24/2023 11:10:48 07/24/2023 11:43:55 Tuberculosis screening [id number] Z11.1 Health Concerns Section Related Observation LastModified by Organization Detai ls LastModified Time None Recorded Concern Status LastModified by Organization Details LastModified Time None Recorded Advance Directives Directive None Recorded Payers Encounter Date Sequence Insurance Name Policy Number Policy Nicolas Covered Member ID Nicolas Member ID Guarantor Name 05/05/2019 1 [facility] [id number] 5 Chito Chavez [id number] Magdalena Chavez 07/24/2023 OC-PAY AT TIME OF SERVICE 2022 Magdalena Chavez OBGyn Episode No OBEpisode recorded.
== END 2024-06-13 08:09 | disposition home or self-care (01) ==
LOC: HO.LAB 08:08
PROVIDERS: PCP Family Medicine; Visit Provider Internal Medicine Gastroenterology
DX: K75.81 Nonalcoholic steatohepatitis (NASH) (principal)
CPT/HCPCS: 36415; 80053

== ENCOUNTER 2024-06-19 08:40 | Outpatient (REF) | payer OTHER, SELFPAY ==
--- OUTSIDE RECORDS SUMMARY | 2024-06-19 08:46 | XMS_ITS | Data Portability ---
Author Organization [facility] [address] Address [address] [place] [address] Assessment No assessment recorded. Plan of Treatment Reminders Order Date Submit Date Provider Last Modified By Organization Details Last Modified Time Details Appointments None recorded. Lab None recorded. Referral None recorded. Procedures None recorded. Surgeries None recorded. Imaging None recorded. Medication Orders Aplisol 5 tub. unit/0.1 mL intradermal injection solution 2023 024 [email or web address] [facility]/Pharmacy #[id number], [address] [place], [address], 11:43:17 Patient TargetsNo targets recorded. Patient InstructionsNo [...] Diagnosis/Indication Diagnosis SNOMED-CT Code Diagnosis ICD10 Code [id number] [address] [place] [address] 05/05/2019 08:31:58 05/05/2019 08:52:46 [id number] [place] [address] [facility] J[place] H[place] [id number] 07/24/2023 11:10:48 07/24/2023 11:43:55 Tuberculosis screening [id number] Z11.1 Health Concerns Section Related Observation LastModified by Organization Detai ls LastModified Time None Recorded Concern Status LastModified by Organization Details LastModified Time None Recorded Advance Directives Directive None Recorded Payers Encounter Date Sequence Insurance Name Policy Number Policy Nicolas Covered Member ID Nicolas Member ID Guarantor Name 05/05/2019 1 [facility] [id number] 5 Chito Chavez [id number] Magdalena Chavez 07/24/2023 OC-PAY AT TIME OF SERVICE 2022 Magdalena Chavez OBGyn Episode No OBEpisode recorded.
[2024-06-19 09:04] LABS: Basophils Percent Auto 0.4 % (0-2); Eosinophils Absolute Auto 0.1 X10*3/uL (0.0-0.4); Eosinophils Percent Auto 2.6 % (0-4); Hematocrit 38.5 % (37.0-47.0); Lymphocytes Absolute Auto 1.9 X10*3/uL (1.2-4.9); Lymphocytes Percent Auto 41.4 % (20-40); MANUAL DIFF FLAG SCAN; Mean Corpuscular HGB Conc 36.4 g/dl (31.0-35.0); Mean Corpuscular Hemoglobin 32.1 pg (27.0-33.0); Mean Corpuscular Volume 88.3 fL (80.0-98.0); Mean Platelet Volume 8.8 fL (9.4-12.3); Monocytes Absolute Auto 0.4 X10*3/uL (0.1-1.2); Monocytes Percent Auto 9.3 % (2-11); Neutrophils Absolute Auto 2.1 x10*3/uL (2.0-8.3); Neutrophils Percent Auto 46.3 % (45-73); Platelet Count 211 X10*3/uL (160-400); Red Blood Count 4.36 X10*6/uL (4.20-5.50); Red Cell Distribution Width 11.6 % (11.0-16.0); SCAN SMEAR FLAG 1; White Blood Count 4.5 X10*3/uL (4.8-10.8)
[2024-06-19 09:37] LABS: Alanine Aminotransferase 48 U/L (0-31); Alkaline Phosphatase 63 U/L (39-117); Anion Gap 10 (12-20); Aspartate Amino Transferase 43 U/L (5-31); Bilirubin Total 0.4 mg/dL (0.0-1.0); Blood Urea Nitrogen 11 mg/dL (9-16); Calcium 9.2 mg/dL (8.4-10.2); Carbon Dioxide 28 mmol/L (22-29); Chloride 105 mmol/L (96-108); Estimated Glomerular Filt Rate > 60; Glucose Random 101 mg/dL (60-115); Potassium 3.9 mmol/L (3.3-5.1); Sodium 139 mmol/L (135-145)
[2024-06-19 09:39] LABS: SLIDE REVIEW VERIFIED
== END 2024-06-19 08:41 | disposition home or self-care (01) ==
LOC: HO.LAB 08:40
PROVIDERS: PCP Family Medicine; Visit Provider Internal Medicine Gastroenterology
DX: K75.81 Nonalcoholic steatohepatitis (NASH) (principal); R74.8 Abnormal levels of other serum enzymes
CPT/HCPCS: 36415; 80053; 85025

== ENCOUNTER 2024-07-02 09:27 | Outpatient (REF) | payer OTHER, SELFPAY ==
--- OUTSIDE RECORDS SUMMARY | 2024-07-02 09:29 | XMS_ITS | Continuity of Care Document ---
Author Organization [facility] Peterson lt Address [address] [place] [address]- Care Team Providers Care Deli Department Manager Name Role Phone Divya LINDA, Mckay Oliveira Primary Care Physician [phone] En[place] [facility] [place] Date(s): 05/29/24 - 06/28/24 [facility] Adult [address] [place] [address]- Attending Physician: Admtr, Ar8 Admitting Physician: Admtr, Ar8 Referring Physician: Admtr, Ar8 Encounter Type: Triage Allergies, Adverse Reactions, Alerts Substance Criticality Severity [...] Quantity: 30.0 Unit: capsule Repeat number: 1 PARoxetine 7.5 mg oral [...] mL, 3 Refills, Maintenance,01/24/23 12:16:00 PM EDT, [facility], Partial fill upon patient request if [...] on: 11/11/19 Sex Sex Representation Female (finding) Hospital Consult note * Event Display: Inpatient Consult Note, Non-BH Authored Date: Laboratory * Event Display: Laboratory Result Scanned Authored Date: * Event Display: Laboratory Result Scanned Authored Date: * Event Display: Laboratory Result Scanned Authored Date: Radiology * Event Display: X-Ray Chest, Non- BH Authored Date: MG Breast Views * Event Display: MM Mammogram Authored Date: * Event Display: MM Mammogram Authored Date: * Event Display: MM Mammogram Authored Date: Patient Care team information Care Team Personnel Name: Mckay Stokes MD Position: [facility] Physician - Primary Care Member Role: PCP Address: [address] [place] [address]- Telecom: Care Team Related Persons Name: MABLE ROSENBAUM Name: MABLE ROSENBAUM Insurance Providers Guarantor name: RACH Health Plan Information #: 1 Payer: [facility] Member Number: NA Policy Number: NA Group Number: NA
--- OUTSIDE RECORDS SUMMARY | 2024-07-02 09:29 | XMS_ITS | Continuity of Care Document ---
Author Organization [facility] Peterson lt Address [address] [place] [address]- Care Team Providers Care Director Medical Writing Name Role Phone Divya LINDA, Mckay Oliveira Primary Care Physician [phone] [place] [facility] [place] 06/24/24 [facility] Adult [address] [place] [address]- Encounter Type: Triage Allergies, Adverse Reactions, Alerts [...] mL, 3 Refills, Maintenance,01/24/23 12:16:00 PM EDT, [facility], Partial fill upon patient [...] on: 11/11/19 Sex Sex Representation Female (finding) Patient Care team information Care Team Personnel Name: Mckay Stokes MD Position: [facility] Physician - Primary Care Member Role: PCP Address: [address] [place] [address]- Telecom: Care Team Related Persons Name: MABLE ROSENBAUM Name: MABLE ROSENBAUM Insurance Providers Guarantor name: RACH Health Plan Information #: 1 P[facility] Member Number: NA Policy Number: NA Group Number: NA
--- OUTSIDE RECORDS SUMMARY | 2024-07-02 09:29 | XMS_ITS | Data Portability ---
Author Organization [facility] [address] Address [address] [place] [address] Assessment No assessment recorded. Plan of Treatment Reminders Order Date Submit Date Provider Last Modified By Organization Details Last Modified Time Details Appointments None recorded. Lab None recorded. Referral None recorded. Procedures None recorded. Surgeries None recorded. Imaging None recorded. Medication Orders Aplisol 5 tub. unit/0.1 mL intradermal injection solution 2023 024 [email or web address] [facility]/Pharmacy #[id number], [address] [place], [address], 11:43:17 Patient TargetsNo targets recorded. Patient InstructionsNo [...] Diagnosis/Indication Diagnosis SNOMED-CT Code Diagnosis ICD10 Code [id number] [address] [place] [address] 05/05/2019 08:31:58 05/05/2019 08:52:46 [id number] Radha Molina NP [address] [facility] JACK Hdez [address] 07/24/2023 11:10:48 07/24/2023 11:43:55 Tuberculosis screening 247835803 Z11.1 Health Concerns Section Related Observation LastModified by Organization Detai ls LastModified Time None Recorded Concern Status LastModified by Organization Details LastModified Time None Recorded Advance Directives Directive None Recorded Payers Encounter Date Sequence Insurance Name Policy Number Policy Nicolas Covered Member ID Nicolas Member ID Guarantor Name 05/05/2019 1 [facility] [id number] Chito Chavez [id number] Magdalena Chavez 07/24/2023 OC-PAY AT TIME OF SERVICE 2022 Magdalean Chavez OBGyn Episode No OBEpisode recorded.
--- OUTSIDE RECORDS SUMMARY | 2024-07-02 09:29 | XMS_ITS | Continuity of Care Document ---
Author Organization [facility] [address] Address [address] [place] [address]- Care Team Providers Care Brim Rounder Name Role Phone Mckay Stokes MD Primary Care Physician [phone] [place] [facility] [place]28/24 [facility] Adult [address] [place] [address]- Attending Physician: Mckay Stokes MD Encounter Type: Pre Office Visit Allergies, Adverse Reactions, Alerts Substance Criticality Severity [...] mL, 3 Refills, Maintenance,01/24/23 12:16:00 PM EDT, [facility], Partial fill upon patient [...] - Primary Care Member Role: PCP Address: [address] [place] [address]- Telecom: Care Team Related Persons Name: MABLE ROSENBAUM Name: MABLE ROSENBAUM Insurance Providers Guarantor name: NA Health Plan Information #: 1 Payer[facility] Member Number: [id number] Policy Number: NA Group Number: [id number] Health Plan Information #: 2 Payer: [facility] Member Number: [id number] Policy Number: NA Group Number: [id number]
--- OUTSIDE RECORDS SUMMARY | 2024-07-02 09:29 | XMS_ITS | Continuity of Care Document ---
Author Organization [facility] Address [address] [place] [address]- Care Team Providers Care Project Management Manager Name Role Phone Divya LINDA, Mckay Oliveira Primary Care Physician Encounter [facility] [place] Date(s): 05/26/24 - 06/25/24 [facility] Adult [address] [place] [address]- Encounter Type: Triage Allergies, Adverse Reactions, Alerts [...] mL, 3 Refills, Maintenance,01/24/23 12:16:00 PM EDT, [facility], Partial fill upon [...] Team Personnel Name: Mckay Stokes MD Position: [facility] Physician - Primary Care Member Role: PCP Address: [address] [place] [address]- Telecom: Care Team Related Persons Name: MABLE ROSENBAUM Name: MABLE ROSENBAUM Insurance Providers Guarantor name: RACH Health Plan Information #: 1 [facility] Member Number: NA Policy Number: NA Group Number: NA
[2024-07-02 10:24] LABS: Alanine Aminotransferase 33 U/L (0-31); Albumin Level 4.2 g/dL (3.5-5.0); Alkaline Phosphatase 51 U/L (39-117); Anion Gap 9 (12-20); Aspartate Amino Transferase 32 U/L (5-31); Bilirubin Total 0.5 mg/dL (0.0-1.0); Blood Urea Nitrogen 15 mg/dL (9-16); Calcium 9.4 mg/dL (8.4-10.2); Carbon Dioxide 30 mmol/L (22-29); Chloride 105 mmol/L (96-108); Estimated Glomerular Filt Rate > 60; Glucose Random 112 mg/dL (60-115); Potassium 3.9 mmol/L (3.3-5.1); Sodium 140 mmol/L (135-145); Total Protein 7.2 g/dL (6.5-8.0)
== END 2024-07-02 09:28 | disposition home or self-care (01) ==
LOC: HO.LAB 09:27
PROVIDERS: PCP Family Medicine; Visit Provider Internal Medicine Gastroenterology
DX: K75.81 Nonalcoholic steatohepatitis (NASH) (principal)
CPT/HCPCS: 36415; 80053

== ENCOUNTER 2024-08-04 08:57 | Outpatient (REF) | payer OTHER, SELFPAY ==
--- OUTSIDE RECORDS SUMMARY | 2024-08-04 09:20 | XMS_ITS | Data Portability ---
Author Organization [facility] [address] Address [address] [place] [address] Assessment No assessment recorded. Plan of Treatment Reminders Order Date Submit Date Provider Last Modified By Organization Details Last Modified Time Details Appointments None recorded. Lab None recorded. Referral None recorded. Procedures None recorded. Surgeries None recorded. Imaging None recorded. Medication Orders Aplisol 5 tub. unit/0.1 mL intradermal injection solution 2023 024 [email or web address] [facility]/Pharmacy #[id number], [address] [place], [address], 11:43:17 Patient TargetsNo targets recorded. Patient InstructionsNo [...] Diagnosis/Indication Diagnosis SNOMED-CT Code Diagnosis ICD10 Code Diagnosis Note [id number] [address] [place] [address] 05/05/2019 08:31:58 05/05/2019 08:52:46 [id number] Radha Molina NP [address] [facility] JACK Hdez [address] 07/24/2023 11:10:48 07/24/2023 11:43:55 Tuberculosis screening [id number] Z11.1 Health Concerns Section Related Observation LastModified by Organization Detai ls LastModified Time None Recorded Concern Status LastModified by Organization Details LastModified Time None Recorded Advance Directives Directive None Recorded Payers Encounter Date Sequence Insurance Name Policy Number Policy Nicolas Covered Member ID Nicolas Member ID Guarantor Name 05/05/2019 1 [facility] [id number] Chito Chavez [id number] Magdalena Chavez 07/24/2023 OC-PAY AT TIME OF SERVICE 2022 Magdalena Chavez OBGyn Episode No OBEpisode recorded.
[2024-08-04 10:00] LABS: Alanine Aminotransferase 25 U/L (0-31); Albumin Level 4.2 g/dL (3.5-5.0); Alkaline Phosphatase 45 U/L (39-117); Anion Gap 10 (12-20); Aspartate Amino Transferase 31 U/L (5-31); Bilirubin Total 0.4 mg/dL (0.0-1.0); Blood Urea Nitrogen 13 mg/dL (9-16); Calcium 8.9 mg/dL (8.4-10.2); Carbon Dioxide 29 mmol/L (22-29); Chloride 106 mmol/L (96-108); Estimated Glomerular Filt Rate > 60; Glucose Random 90 mg/dL (60-115); Potassium 4.3 mmol/L (3.3-5.1); Sodium 141 mmol/L (135-145); Total Protein 7.2 g/dL (6.5-8.0)
== END 2024-08-04 08:58 | disposition home or self-care (01) ==
LOC: HO.LAB 08:57
PROVIDERS: PCP Family Medicine; Visit Provider Internal Medicine Gastroenterology
DX: K75.81 Nonalcoholic steatohepatitis (NASH) (principal)
CPT/HCPCS: 36415; 80053

== ENCOUNTER 2024-10-12 11:08 | Outpatient (REF) | payer OTHER, SELFPAY ==
--- OUTSIDE RECORDS SUMMARY | 2024-10-12 13:20 | XMS_ITS | Data Portability ---
Author Organization [facility] [address] Address [address] [place] [address] Assessment No assessment recorded. Plan of Treatment Reminders Order Date Submit Date Provider Last Modified By Organization Details Last Modified Time Details Appointments None recorded. Lab None recorded. Referral None recorded. Procedures None recorded. Surgeries None recorded. Imaging None recorded. Medication Orders Aplisol 5 tub. unit/0.1 mL intradermal injection solution 2023 024 [email or web address] [facility]/Pharmacy #[id number], [address] [place], [address], 11:43:17 Patient TargetsNo targets recorded. Patient InstructionsNo [...] SNOMED-CT Code Diagnosis ICD10 Code Diagnosis Note [id number] [address] [place] [address] 05/05/2019 08:31:58 05/05/2019 08:52:46 [id number] Radha Molina NP [address] [facility] JACK Hdez [address] 07/24/2023 11:10:48 07/24/2023 11:43:55 Tuberculosis screening [id number] Z11.1 Health Concerns Section Related Observation LastModified by Organization Detai ls LastModified Time None Recorded Concern Status LastModified by Organization Details LastModified Time None Recorded Advance Directives Directive None Recorded Payers Encounter Date Sequence Insurance Name Policy Number Policy Nicolas Covered Member ID Nicolas Member ID Guarantor Name 05/05/2019 1 [facility] [id number] Chito Chavez [id number] Magdalena Chavez 07/24/2023 OC-PAY AT TIME OF SERVICE 2022 Magdalena Chavez OBGyn Episode No OBEpisode recorded.
[2024-10-12 13:24] LABS: Alanine Aminotransferase 23 U/L (0-31); Albumin Level 4.3 g/dL (3.5-5.0); Alkaline Phosphatase 49 U/L (39-117); Anion Gap 10 (12-20); Aspartate Amino Transferase 32 U/L (5-31); Bilirubin Total 0.4 mg/dL (0.0-1.0); Blood Urea Nitrogen 15 mg/dL (9-16); Calcium 9.5 mg/dL (8.4-10.2); Carbon Dioxide 29 mmol/L (22-29); Chloride 105 mmol/L (96-108); Estimated Glomerular Filt Rate > 60; Glucose Random 92 mg/dL (60-115); Sodium 140 mmol/L (135-145); Total Protein 7.1 g/dL (6.5-8.0)
== END 2024-10-12 11:09 | disposition home or self-care (01) ==
LOC: HO.LAB 11:08
PROVIDERS: PCP Family Medicine; Visit Provider Internal Medicine Gastroenterology
DX: R74.8 Abnormal levels of other serum enzymes (principal)
CPT/HCPCS: 36415; 80053

== ENCOUNTER 2025-03-11 07:57 | Day surgery (SDC) | payer OTHER, SELFPAY ==
--- OUTSIDE RECORDS SUMMARY | 2025-03-02 10:50 | XMS_ITS | Encounter Summary ---
Author Organization [facility] Address [address] [place] [address] Phone Care Team Providers Care Dean Of Chapel Name Role Phone Unknown, Unknown Primary Care Provider Mckay Engle MD Primary Care Provider + Encounter Details Date Type Department Care Team (Late st Contact Info) Description 07/30/2019 Ancillary Orders [facility],Outside Imaging [address] [place] [address] System, Provider Not In, [place] [address] Social History Tobacco Use Types Packs/Day Years Used Date Smoking Tobacco: Never Smokeless Tobacco: Never Alcohol Use Standard Drinks/Week Comments Yes 0 (1 standard drink = 0.6 oz pur e alcohol) Comments No Sex and Gender Information Value Date Recorded Sex Assigned at Female 01/04/2020 2:38 PM EDT Legal Sex Female 12:21 PM EDT Gender Identity Female 01/04/2020 2:38 PM EDT Sexual Orientation Not on file documented as of this encounter Plan of Treatment Upcoming Encounters Date Type Department Care Team (Late Contact Info) Description 09/28/2024 Procedure Pass [address] [place] [address] 04/07/2025 2:30 PM EDT Appointment [address] [place] [address] Mckay Stokes MD [address] [place] [address] [phone] documented as of this encounter Results * US Breast Outside (No Interpretation) (07/26/2017 12:05 AM EST) Narrative SYSTEMGENERATED, DOCUMENTATION - 07/30/2019 1:37 PM EST This study is for PACS storage only and not for interpretation. us Provider Not In System PhD IMG OUTSIDE IMAGING W /OUT INTERPRETATION Final Result documented in this encounter Visit Diagnoses Not on filedocumented in this encounter Care Teams Dean Of Chapel Relationship Specialty Start Date End Date Unknown, Unknown, MD PCP - General 05/04/19 12/10/19 Mckay Stokes MD [address] [place] [address] PCP - General Family Medicine 12/11/19 documented as of this encounter Additional Source Comments The information contained in this document represents components of the legal health record. It is not the complete legal health record.[facility]
--- OUTSIDE RECORDS SUMMARY | 2025-03-02 10:50 | XMS_ITS | Encounter Summary ---
Author Organization [facility] Address [address] [place] [address] Phone Care Team Providers Care Bonding Machine Tender Name Role Phone Unknown, Unknown Primary Care Provider Mckay Engle MD Primary Care Provider + Encounter Details Date Type Department Care Team (Late st Contact Info) Description 07/30/2019 Ancillary Orders [facility],Outside Imaging [address] [place] [address] System, Provider Not In, [place] [address] Social History Tobacco Use Types Packs/Day Years [...] (Late Contact Info) Description 09/28/2024 Procedure Pass [address] [place] [address] 04/07/2025 2:30 PM EDT Appointment [address] [place] [address] Mckay Stokes MD [address] [place] [address] [phone] documented as of this encounter Results * Mammogram Outside (No Interpretation) (03/15/2016 12:05 AM EDT) Narrative SYSTEMGENERATED, DOCUMENTATION - 07/30/2019 1:38 PM EST This study is for PACS storage only and not for interpretation. us Provider Not In System PhD IMG OUTSIDE IMAGING W /OUT INTERPRETATION Final Result documented in this encounter Visit Diagnoses Not on filedocumented in this encounter Care Teams Bonding Machine Tender Relationship Specialty Start Date End Date Unknown, Unknown, MD PCP - General 05/04/19 12/10/19 Mckay Stokes MD [address] [place] [phone] PCP - General Family Medicine 12/11/19 documented as of this encounter Additional Source Comments The information contained in this document represents components of the legal health record. It is not the complete legal health record.[facility]
--- OUTSIDE RECORDS SUMMARY | 2025-03-02 10:50 | XMS_ITS | Encounter Summary ---
Author Organization [facility] Address [address] [place] [address] Phone Care Team Providers Care Cyber Intelligence Analyst Name Role Phone Unknown, Unknown Primary Care Provider Mckay Engle MD Primary Care Provider + Encounter Details Date Type Department Care Team (Late st Contact Info) Description 07/30/2019 Ancillary Orders [facility],Outside Imaging [address] [place] [address] System, Provider Not In, [place] [address] Social History Tobacco Use Types Packs/Day Years [...] (Late Contact Info) Description 09/28/2024 Procedure Pass [address] [place] [address] 04/07/2025 2:30 PM EDT Appointment [address] [place] [address] Mckay Stokes MD [address] [place] [address] [phone] documented as of this encounter Results * US Breast Outside (No Interpretation) (03/15/2016 12:00 AM EDT) Narrative SYSTEMGENERATED, DOCUMENTATION - 07/30/2019 1:38 PM EST This study is for PACS storage only and not for interpretation. us Provider Not In System PhD IMG OUTSIDE IMAGING W /OUT INTERPRETATION Final Result documented in this encounter Visit Diagnoses Not on filedocumented in this encounter Care Teams Cyber Intelligence Analyst Relationship Specialty Start Date End Date Unknown, Unknown, MD PCP - General 05/04/19 12/10/19 Mckay Stokes MD [address] [place] [id number] PCP - General Family Medicine 12/11/19 documented as of this encounter Additional Source Comments The information contained in this document represents components of the legal health record. It is not the complete legal health record.[facility]
--- OUTSIDE RECORDS SUMMARY | 2025-03-02 10:50 | XMS_ITS | Encounter Summary ---
Author Organization [facility] Address [address] [place] [address] Phone Care Team Providers Care Well Flow Operator Name Role Phone Unknown, Unknown Primary Care Provider Mckay Engle MD Primary Care Provider + Encounter Details Date Type Department Care Team (Late st Contact Info) Description 07/30/2019 Ancillary Orders [facility],Outside Imaging [address] [place] [address] System, Provider [place] In, [place] [address] Social History Tobacco Use Types Packs/Day Years [...] (Late Contact Info) Description 09/28/2024 Procedure [address] [place] [address] 04/07/2025 2:30 PM EDT Appointment [address] [place] [address] Mckay Stokes MD [address] [place] [address] [phone] documented as of this encounter Results * Mammogram Outside (No Interpretation) (07/31/2018 12:00 AM EST) Narrative SYSTEMGENERATED, DOCUMENTATION - 07/30/2019 1:34 PM EST This study is for PACS storage only and not for interpretation. us Provider Not In System PhD IMG OUTSIDE IMAGING W /OUT INTERPRETATION Final Result documented in this encounter Visit Diagnoses Not on filedocumented in this encounter Care Teams Well Flow Operator Relationship Specialty Start Date End Date Unknown, Unknown, MD PCP - General 05/04/19 12/10/19 Mckay Stokes MD [address] [place] [phone] PCP - General Family Medicine 12/11/19 documented as of this encounter Additional Source Comments The information contained in this document represents components of the legal health record. It is not the complete legal health record.[facility]
--- OUTSIDE RECORDS SUMMARY | 2025-03-02 10:50 | XMS_ITS | Encounter Summary ---
Author Organization [facility] Address [address] [place] [address] Phone Care Team Providers Care Cushion Stuffer Name Role Phone Mckay Stokes MD Primary Care Provider + Encounter Details Date Type Department Care Team (Latest Contact Info) Description 09/27/2022 Transcribe Orders Virtual Department [address] [place] [address] Kirti Hernández MD [address] [place] [address] [address] [place] [address] [email or web address] Breast screening (Primary Dx) Social History Tobacco Use Types Packs/Day Years Used Date Smoking Tobacco: Never Smokeless Tobacco: Never Alcohol Use Standard Drinks/Week Comments Yes 2 (1 standard drink = 0.6 oz pur e alcohol) Comments No Sex and Gender Information Value Date Recorded Sex Assigned at Female 01/04/2020 2:38 PM EDT Legal Sex Female 12:21 PM EDT Gender Identity Female 01/04/2020 2:38 PM EDT Sexual Orientation Not on file documented as of this encounter Plan of Treatment Upcoming Encounters Date Type Department Care Team (Late st Contact Info) Description 09/28/2024 Procedure Pass [address] [place] [address] 04/07/2025 2:30 PM EDT Appointment [address] [place] [address] Mckay Stokes MD [address] [place] [phone] documented as of this encounter Results * BI MAMMOGRAM SCREENING WITH TOMOSYNTHESIS WITH CAD (BILATERAL) (10/16/2022 8:17 AM EDT) Anatomical Region Laterality Modality Breast Left, Breast Right, Breast Bilateral Bila teral Mammography 10/16/2022 4:03 PM EDT Impressions 10/16/2022 4:06 PM EDT BILATERAL BREASTS: Negative, no evidence of malignancy. Recommend bilateral annual screening mammography in 12 months. Bi-RADS: BI-RADS CATEGORY: 1 - Negative. DENSITY: There are scattered fibroglandular densities. RIGHT RECOMMENDATION DUE DATE: 12 Months Recommendation: Right Mammography Screening LEFT RECOMMENDATION DUE DATE: 12 Months Recommendation: Left Mammography Screening Narrative 10/16/2022 4:06 PM EDT STUDY: Bilateral screening mammography with tomosynthesis and CAD TECHNIQUE: Bilateral full-field digital screening mammography is obtained and read in conjunction with computer-aided detection. Tomosynthesis as well as 2-D C view imaging were obtained. COMPARISON: Comparison made to multiple prior studies dating back to March 2016. BILATERAL BREASTS: No new masses, suspicious calcifications or other abnormalities are seen. No significant interval change. Procedure Note Irwin Thornton MD - 10/16/2022 STUDY: Bilateral screening mammography with tomosynthesis and CAD TECHNIQUE: Bilateral full-field digital screening mammography is obtainedand read in conjunction with computer-aided detection. Tomosynthesis aswell as 2-D C view imaging were obtained. COMPARISON: Comparison made to multiple prior studies dating back 2015. BILATERAL BREASTS: No new masses, suspicious calcifications or otherabnormalities are seen. No significant interval change. IMPRESSION: BILATERAL BREASTS: Negative, no evidence of malignancy. Recommendbilateral annual screening mammography in 12 months. Bi-RADS: BI-RADS CATEGORY: 1 - Negative. DENSITY: There are scattered fibroglandular densities. RIGHT RECOMMENDATION DUE DATE: 12 Months Recommendation: Right Mammography Screening LEFT RECOMMENDATION DUE DATE: 12 Months Recommendation: Left Mammography Screening Kirti Hernández MD IMG MG EXAMS Final Result documented in this encounter Visit Diagnoses Diagnosis Breast screening- Primary Breast screening, unspecified Breast screening Breast screening, unspecified documented in this encounter Care Teams Cushion Stuffer Relationship Specialty Start Date End Date Mckay Stokes MD [address] [place] [address] PCP - General Family Medicine 12/11/19 documented as of this encounter Additional Source Comments The information contained in this document represents components of the legal health record. It is not the complete legal health record.[facility]
--- OUTSIDE RECORDS SUMMARY | 2025-03-02 10:50 | XMS_ITS | Encounter Summary ---
Author Organization [facility] Address [address] [place] [address] Phone Care Team Providers Care Commercial Collector Name Role Phone Mckay Stokes MD Primary Care Provider + Encounter Details Date Type Department Care Team (Late st Contact Info) Description 08/30/2021 Procedure Pass [address] [place] [address] Social History Tobacco Use Types Packs/Day Years [...] st Contact Info) Description 09/28/2024 Procedure Pass [address] [place] [address] 04/07/2025 2:30 PM EDT Appointment [address] [place] [address] Mckay Stokes MD [address] [place] [phone] documented as of this encounter Visit Diagnoses Not on filedocumented in this encounter Care Teams Commercial Collector Relationship Specialty Start Date End Date Mckay Stokes MD [address] [place] [phone] PCP - General Family Medicine 12/11/19 documented as of this encounter Additional Source Comments The information contained in this document represents components of the legal health record. It is not the complete legal health record.[facility]
--- OUTSIDE RECORDS SUMMARY | 2025-03-02 10:50 | XMS_ITS | Encounter Summary ---
Author Organization [facility] Address [address] [place] [address] Phone Care Team Providers Care Residential Real Estate Assistant Name Role Phone Unknown, Unknown Primary Care Provider Mckay Engle MD Primary Care Provider + Encounter Details Date Type Department Care Team (Late st Contact Info) Description 07/30/2019 Ancillary Orders [facility],Outside Imaging [address] [place] [address] System, Provider Not In, [place] [address] Social History Tobacco Use Types Packs/Day Years [...] (Late Contact Info) Description 09/28/2024 Procedure Pass [address] [place] [address] 04/07/2025 2:30 PM EDT Appointment [address] [place] [address] Mckay Stokes MD [address] [place] [address] [phone] documented as of this encounter Results * Mammogram Outside (No Interpretation) (07/26/2017 12:00 AM EST) Narrative SYSTEMGENERATED, DOCUMENTATION - 07/30/2019 1:36 PM EST This study is for PACS storage only and not for interpretation. us Provider Not In System PhD IMG OUTSIDE IMAGING W /OUT INTERPRETATION Final Result documented in this encounter Visit Diagnoses Not on filedocumented in this encounter Care Teams Residential Real Estate Assistant Relationship Specialty Start Date End Date Unknown, Unknown, MD PCP - General 05/04/19 12/10/19 Mckay Stokes MD [address] [place] [address] PCP - General Family Medicine 12/11/19 documented as of this encounter Additional Source Comments The information contained in this document represents components of the legal health record. It is not the complete legal health record.[facility]
--- OUTSIDE RECORDS SUMMARY | 2025-03-02 10:50 | XMS_ITS | Encounter Summary ---
Author Organization [facility] Address [address] [place] [address] Phone Care Team Providers Care Refrigerated National Truck Driver Name Role Phone Mckay Stokes MD Primary Care Provider + Encounter Details Date Type Department Care Team (Late st Contact Info) Description 10/03/2023 Procedure Pass [address] [place] [address] Social History Tobacco Use Types Packs/Day Years Used Date Smoking Tobacco: Never Smokeless Tobacco: Never Alcohol Use Standard Drinks/Week Comments Yes 4 (1 standard drink = 0.6 oz pur e alcohol) Education Answer Date Recorded Are you interested in more education? Not on teri e 2022 Are you concerned about learning? Not on file 2022 No 2022 No 2022 Digital Access Answer Date Recorded No 12/01/2022 No 12/01/2022 Reliable internet access at home? Not on file 12/01/2022 Device with a working camera? Not on file Comments No Sex and Gender Information Value Date Recorded Sex Assigned at Female 01/04/2020 2:38 PM EDT Legal Sex Female 12:21 PM EDT Gender Identity Female 01/04/2020 2:38 PM EDT Sexual Orientation Not on file documented as of this encounter Plan of Treatment Upcoming Encounters Date Type Department Care Team (Late st Contact Info) Description 09/28/2024 Procedure Pass [address] [place] [address] 04/07/2025 2:30 PM EDT Appointment [address] [place] [address] Mckay Stokes MD [address] [place] [phone] documented as of this encounter Visit Diagnoses Not on filedocumented in this encounter Care Teams Refrigerated National Truck Driver Relationship Specialty Start Date End Date Mckay Stokes MD [address] [place] [phone] PCP - General Family Medicine 12/11/19 documented as of this encounter Additional Source Comments The information contained in this document represents components of the legal health record. It is not the complete legal health record.[facility]
--- OUTSIDE RECORDS SUMMARY | 2025-03-02 10:50 | XMS_ITS | Encounter Summary ---
Author Organization [facility] Address [address] [place] [phone] Phone Care Team Providers Care Load Haul Dump Operator Name Role Phone Mckay Stokes MD Primary Care Provider + Encounter Details Date Type Department Care Team (Latest Contact Info) Description 10/03/2023 Transcribe Orders Virtual Department [address] [place] [phone] Mckay Stokes MD [address] [place] [phone] Breast screening (Primary Dx) Social History Tobacco [...] st Contact Info) Description 09/28/2024 Procedure Pass [address] [place] [address] 04/07/2025 2:30 PM EDT Appointment [address] [place] [address] Mckay Stokes MD [address] [place] [address] [phone] documented as of this encounter Results * BI MAMMOGRAM SCREENING WITH TOMOSYNTHESIS WITH CAD (BILATERAL) (12/11/2023 9:22 AM EDT) Anatomical Region Laterality Modality Breast Left, Breast Right, Breast Bilateral Bila teral Mammography 12/13/2023 4:05 PM EDT Impressions 12/13/2023 4:06 PM EDT No mammographic evidence of malignancy in either breast. Annual screening mammography is recommended. BI-RADS 1 NEGATIVE The patient will be notified of the results and recommendations. Narrative 12/13/2023 4:06 PM EDT BI MAMMOGRAM SCREENING WITH TOMOSYNTHESIS WITH CAD (BILATERAL) Additional patient information: Screening. COMPARISON: Comparison is made with relevant prior imaging. Breast composition: There are scattered areas of fibroglandular density. FINDINGS: No abnormal masses, suspicious calcifications, or other significant findings are identified mammographically in either breast. Procedure Note Tram Jackson MD - 12/13/2023 BI MAMMOGRAM SCREENING WITH TOMOSYNTHESIS WITH CAD (BILATERAL) Additional patient information: Screening. COMPARISON: Comparison is made with relevant prior imaging. Breast composition: There are scattered areas of fibroglandular density. FINDINGS: No abnormal masses, suspicious calcifications, or other significantfindings are identified mammographically in either breast. IMPRESSION: No mammographic evidence of malignancy in either breast. Annual screening mammography is recommended. BI-RADS 1 NEGATIVE The patient will be notified of the results and recommendations. Mckay Stokes MD IMG MG EXAMS Final Re sult documented in this encounter Visit Diagnoses Diagnosis Breast screening- Primary Breast screening, unspecified Breast screening Breast screening, unspecified documented in this encounter Care Teams Load Haul Dump Operator Relationship Specialty Start Date End Date Mckay Stokes MD [address] [place] [phone] PCP - General Family Medicine 12/11/19 documented as of this encounter Additional Source Comments The information contained in this document represents components of the legal health record. It is not the complete legal health record.[facility]
--- OUTSIDE RECORDS SUMMARY | 2025-03-02 10:50 | XMS_ITS | Encounter Summary ---
Author Organization [facility] Address [address] [place] [phone] Phone Care Team Providers Care Service Correspondent Name Role Phone Unknown, Unknown Primary Care Provider Mckay Engle MD Primary Care Provider + Encounter Details Date Type Department Care Team (Late st Contact Info) Description 07/30/2019 Ancillary Orders [facility],Outside Imaging [address] [place] [address] System, Provider Not In, [place] [address] Social History Tobacco Use Types Packs/Day Years [...] (Late Contact Info) Description 09/28/2024 Procedure [address] [place] [address] 04/07/2025 2:30 PM EDT Appointment [address] [place] [address] Mckay Stokes MD [address] [place] [address] [phone] documented as of this encounter Results * US Breast Outside (No Interpretation) (07/31/2018 12:05 AM EST) Narrative SYSTEMGENERATED, DOCUMENTATION - 07/30/2019 1:35 PM EST This study is for PACS storage only and not for interpretation. us Provider Not In System PhD IMG OUTSIDE IMAGING W /OUT INTERPRETATION Final Result documented in this encounter Visit Diagnoses Not on filedocumented in this encounter Care Teams Service Correspondent Relationship Specialty Start Date End Date Unknown, Unknown, MD PCP - General 05/04/19 12/10/19 Mckay Stokes MD [address] [place] [phone] PCP - General Family Medicine 12/11/19 documented as of this encounter Additional Source Comments The information contained in this document represents components of the legal health record. It is not the complete legal health record.[facility]
--- OUTSIDE RECORDS SUMMARY | 2025-03-02 10:50 | XMS_ITS | Clinical Summary ---
Author Organization [facility] Address [address] [place] [phone] Phone Care Team Providers Care Track Car Operator Name Role Phone Mckay Stokes MD Primary Care Provider + Allergies Active Allergy Reactions Criticality Noted Date Comments Sulfa (Sulfonamide Antibiotics) Rash Low 07/08 Medications therapeutic multivitamin tablet Take 1 tablet by mouth daily. Active ibuprofen (ADVIL,MOTRIN) 600 MG tablet Take 1 tablet (600 mg total) by mouth every 6 (six) hours as needed for pain (specific location in comments). 20 tablet 2 3 Active PARoxetine (PAXIL) 10 MG tablet Take 10 mg by mouth. 5 Active estradioL (VAGIFEM) 10 mcg TabIndications:Va ginal atrophy Place 1 tablet (10 mcg total) vaginally 2 (two) times a week. 24 tablet 3 5 Active Active Problems Problem Noted Date Diagnosed Date Vaginal atrophy 07/20/2019 Assessment & Plan (09/28/2022 8:15 PM EDT): Managed with [facility]. Call PRN for refills. 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, reports last 1-2 were WNL Records requested Immunizations Immunization Administration Dates Next Due INFLUENZA, SPLIT VIRUS, TRIVALENT W/ PRESERVATIV E IM 06/12/2021 Influenza Quadrivalent Preservative Free IM 04/08 Family History Medical History Relation Comments Cancer Father non hodgskins ly mphoma Relation Status Comments Father Mother Social History Tobacco Use Types Packs/Day Years Used Date Smoking Tobacco: Never Smokeless Tobacco: Never Tobacco Cessation:Counseling Given: Not Answered Alcohol Use Standard Drinks/Week Comments Yes 4 [...] PM EDT Sexual Orientation Not on file Last Filed Vital Signs Vital Sign Reading Time Taken Comments Blood Pressure 118/76 10/02/2024 9:04 AM EDT Pulse 100 01/04/2020 2:35 PM EDT Temperature 36.5 C (97.7 F) 01/04/2020 2:35 PM EDT Respiratory Rate 18 01/04/2020 2:35 PM EDT Oxygen Saturation 99% 01/04/2020 2:35 PM EDT Inhaled Oxygen Concentration - - Weight 66.7 kg (147 lb) 10/02/2024 9:04 AM EDT Height 160 cm (5' 3 ) 10/02/2024 9:04 AM EDT Body Mass Index 26.04 10/02/2024 9:04 AM EDT Plan of Treatment Upcoming Encounters Date Type Department Care Team (Late st Contact Info) Description 09/28/2024 Procedure Pass [address] [place] [address] 04/07/2025 2:30 PM EDT Appointment [address] [place] [address] Mckay Stokes MD [address] [place] [phone] Health Maintenance Due Date Last Done Comments LIPID PANEL 1968 DEPRESSION SCREENING 1980 HEPATITIS C SCREENING 1986 HIV ONE-TIME SCREENING (18-65 YEARS) 1986 SCREENING FOR DIABETES 11/03/2003 COLOGUARD 2013 COLONOSCOPY 2013 COLORECTAL CANCER SCREENING 2013 FIT TEST 2013 FOBT 2013 SIGMOIDOSCOPY 2013 VIRTUAL COLONOSCOPY 2013 PNEUMOCOCCAL VACCINES (50+ years) (1 of 1 - PCV) 2018 ZOSTER VACCINES (1 of 2) 2018 COVID-19 VACCINE ( season) 2024 08/17/2020, 07/27/2020 INFLUENZA VACCINE (#1) 2025 , 05/10/2023, 04/26/2022, Additional history exists MAMMOGRAM 12/10/2025 12/11/2023, 10/06, 09/28/2021, Additional history exists PAP SMEAR 10/03/2027 10/02/2024, 07/08, 07/20/2019 Adult Td,Tdap Booster 10/16/2033 10/17/2023 SMOKING STATUS SCREENING (Once After 26 Yrs) Completed 10/02/2024 HEPATITIS A VACCINES Aged Out No long er eligible based on patient's age to complete this topic HIB VACCINES Aged Out No longer eligi ble based on patient's age to complete this topic MENINGOCOCCAL VACCINES (ACWY) Aged Out No longer eligible based on patient's age to complete this topic MENINGOCOCCAL VACCINES (B) Aged Out N o longer eligible based on patient's age to complete this topic Medical Devices Not on file Procedures Procedure Name Priority Date/Time Associated Diagnosis Comments PAP TEST Routine 10/02/2024 12:00 AM EDT BI MAMMOGRAM SCREENING WITH TOMOSYNTHESIS WITH CAD (BILATERAL) Routine 12/11/2023 9:22 AM EDT Breast screening from Last 3 Months or Most Recently Relevant to Health Maintenance Results * Pap Test (10/02/2024 12:00 AM EDT) 10/02/2024 10/05/2024 10: 12 AM EDT Narrative SEE NARRATIVE - 10/08/2024 1:41 PM EDT [address] [address] Senior Network Systems Engineer: Mele Soliman MD DIESEL MACHINIST Cytology Report FINAL DIAGNOSIS A. PAP SMEAR (THIN PREP) CE: SPECIMEN ADEQUACY: Satisfactory for evaluation; transformation zone present. INTERPRETATION: NEGATIVE FOR INTRAEPITHELIAL LESION OR MALIGNANCY. Reactive changes. This specimen was analyzed by the automated ThinPrep Imaging System ([employer] and manually rescreened by a tape transferrer and/or pathologist. Electronically Signed Out By: ABHI Barlow MD(ASCP) By his/her signature above, the pathologist listed as making the Final Diagnosis certifies that he/she has personally reviewed this case and confirmed or corrected the diagnosis. The Pap test is a screening test primarily for squamous cancers and precursors and has associated false-negative and false-positive results. New technologies such as liquid-based preparations may decrease but will not eliminate all false-negative results. Regular sampling and follow-up of unexplained clinical signs and symptoms are recommended to minimize false negative results. PROCEDURES/ADDENDA HPV Testing (Requested) Ordered Date: 10/05/2024 A. PAP SMEAR (THIN PREP) CE: High-risk HPV Panel w/ extended genotyping POS HPV 16-NEG HPV 18-NEG HPV 45-NEG HPV 33/58-NEG HPV 31-NEG HPV 56/59/66-POS HPV 51-NEG HPV 52-NEG HPV 35/39/68-NEG Performed by real-time polymerase chain reaction (PCR) at [facility], [address] [place] [address], [place], [place] using the FDA-approved BD Onclarity9 HPV Assay with extended genotyping. Uses of the assay in scenarios other than those approved by the FDA should be considered off-label use. The accuracy and precision of this test for all other off-label specimen sources has been verified in the Cytopathology Laboratory of the [facility] and has not been cleared or approved by the U.S. Food and Drug Administration. Clinical correlation is advised. The assay assesses the E6/E7 DNA target and utilizes human beta globin as an internal control. Cytology and HPV testing are screening assays and should not be used as the sole means of detecting cancer. False-positives and false-negatives can occur. CLINICAL HISTORY Date of Last Menstrual Period: Not Provided Menstrual History: Post Menopausal Infection History: HPV: 2024 Other Clinical Conditions: Screening Pap SPECIMEN SOURCE A: PAP SMEAR (THIN PREP) CE Patient Name: YOSVANY CHAVEZ : 1970 (Age: 53) Sex: F Institution: [facility] Location: [facility] Date of Collection: 10/02/2024 Date of Reported: 10/08/2024 13:41 Results to: Kirti Hernández MD Kirti Hernández MD CYTOLOGY ORDERABLES Final Res ult SEE NARRATIVE * BI MAMMOGRAM SCREENING WITH TOMOSYNTHESIS WITH [...] MD IMG MG EXAMS Final Re sult from Last 3 Months or Most Recently Relevant to Health Maintenance Insurance [facility] TOTAL CHOICE INDEMNITY [place] [id number] [employer] [facility] TOTAL CHOICE INDEMNITY [employer] [facility]OTAL CHOICE INDEMNITY [employer] [facility] TOTAL CHOICE [place] [address] [place] [address] [facility]OTAL CHOICE [facility] TOTAL CHOICE INDEMNITY [employer] [facility] TOTAL CHOICE INDEMNITY [employer] [facility] TOTAL CHOICE INDEMNITY [employer] [facility] TOTAL CHOICE INDEMNITY [facility] Care Teams Track Car Operator Relationship Specialty Start Date End Date Mckay Stokes MD [address] [place] [phone] PCP - General Family Medicine 12/11/19 Additional Source Comments The information contained in this document represents components of the legal health record. It is not the complete legal health record.[facility]
--- OUTSIDE RECORDS SUMMARY | 2025-03-02 10:50 | XMS_ITS | Encounter Summary ---
Author Organization [facility] Address [address] [place] [phone] Phone Care Team Providers Care Screen Print Operator Name Role Phone Mckay Stokes MD Primary Care Provider + Encounter Details Date Type Department Care Team (Latest Contact Info) Description 09/28/2024 Transcribe Orders Virtual Department [address] [place] [phone] Mckay Stokes MD [address] [place] [phone] Breast screening (Primary Dx) Social History Tobacco [...] st Contact Info) Description 09/28/2024 Procedure Pass [address] [place] [address] 04/07/2025 2:30 PM EDT Appointment [address] [place] [address] Mckay Stokes MD [address] [place] [phone] Scheduled Orders Name Type Priority Associated Diagnoses Orde r Schedule Mammogram Screening (Bilateral) Imaging Routine Breast screening Expected: 10/29/2024, Expires: 09/28/2025 documented as of this encounter Visit Diagnoses Diagnosis Breast screening- Primary Breast screening, unspecified documented in this encounter Care Teams Screen Print Operator Relationship Specialty Start Date End Date Mckay Stokes MD [address] [place] [address] [phone] PCP - General Family Medicine 12/11/19 documented as of this encounter Additional Source Comments The information contained in this document represents components of the legal health record. It is not the complete legal health record.[facility]
--- OUTSIDE RECORDS SUMMARY | 2025-03-02 10:50 | XMS_ITS | Encounter Summary ---
Author Organization [facility] Address [address] [place] [phone] Phone Care Team Providers Care Contribution Solicitor Name Role Phone Mckay Stokes MD Primary Care Provider + Encounter Details Date Type Department Care Team (Late st Contact Info) Description 07/08/[address] [place] [address] Social History Tobacco Use Types Packs/Day Years [...] st Contact Info) Description 09/28/2024 Procedure Pass [address] [place] [address] 04/07/2025 2:30 PM EDT Appointment [address] [place] [address] Mckay Stokes MD [address] [place] [phone] documented as of this encounter Visit Diagnoses Not on filedocumented in this encounter Care Teams Contribution Solicitor Relationship Specialty Start Date End Date Mckay Stokes MD [address] [place] [phone] PCP - General Family Medicine 12/11/19 documented as of this encounter Additional Source Comments The information contained in this document represents components of the legal health record. It is not the complete legal health record.[facility]
--- OUTSIDE RECORDS SUMMARY | 2025-03-02 10:50 | XMS_ITS | Encounter Summary ---
Author Organization [facility] Address [address] [place] [address] Phone Care Team Providers Care Magnetic Resonance Technologist Name Role Phone Mckay Stokes MD Primary Care Provider + Encounter Details Date Type Department Care Team (Late st Contact Info) Description 09/27/2022 Procedure Pass [address] [place] [address] Social History Tobacco Use Types Packs/Day Years [...] st Contact Info) Description 09/28/2024 Procedure Pass [address] [place] [address] 04/07/2025 2:30 PM EDT Appointment [address] [place] [address] Mckay Stokes MD [address] [place] [phone] documented as of this encounter Visit Diagnoses Not on filedocumented in this encounter Care Teams Magnetic Resonance Technologist Relationship Specialty Start Date End Date Mckay Stokes MD [address] [place] [phone] PCP - General Family Medicine 12/11/19 documented as of this encounter Additional Source Comments The information contained in this document represents components of the legal health record. It is not the complete legal health record.[facility]
--- NOTE | 2025-03-10 12:08 | HO.ANESPROP2 ---
Documented by User: Anna Francis NP 03/10/25 12:08 HPI - Anesthesia Eval Consult details Narrative: 54y F for Upper Endoscopy and Colonoscopy PMFSH Active Problems Active Problems: All Active Problems Elevated liver enzymes (Acute) Symptomatic cholelithiasis (Acute) Past Medical History Medical History (Updated 03/09/25 @ 14:13 by Ellen Castellon RN) Migraines Weight loss Family History Family History Father Hodgkin disease Family history of problems with anesthesia: No Surgical History Surgical History (Updated 03/09/25 @ 14:01 by Ellen Castellon RN) Hx laparoscopic cholecystectomy (08/28/23) History of esophagogastroduodenoscopy (EGD) Hx of tubal ligation Hx of laparoscopy History of Problems with Anesthesia: No Social History Social History Household Members: Family Housing: House Are you a primary healthcare interpreter to a significant other at home: No Do you presently have visiting nurse or other home services: No Alcohol intake: current Alcohol intake frequency: a few times a week Comment: counts correct Patient Tobacco Use Status: Never used Tobacco Have you been hit, kicked, punched, or otherwise hurt by someone within the past year? If so, by whom?: No Are you DNR?: No Advance Directives: No Advance Directives Information Provided: Yes service: No Meds Allergies Allergy/AdvReac Type Severity Reaction Status Date / Time Sulfa (Sulfonamide Allergy Mild Rash Verified 05/26/24 16:29 Antibiotics) Home Medications ?Medication ?Instructions ?Recorded ?Confirmed ?Last Taken ?Type paroxetine mesylate(menop.sym) 7.5 7.5 mg PO DAILY 05/27/24 03/09/25 05/27/24 08:00 History mg capsule hghpepwssi-xdmnxdzgowfzh-gvsrokuq 1 cap PO Q4H PRN headache 03/09/25 03/09/25 Unknown History 50 mg-300 mg-40 mg capsule cyclobenzaprine 15 mg 15 mg PO DAILY PRN muscle spasm 03/09/25 03/09/25 Unknown History capsule,extended release 24 hr zolpidem 10 mg tablet 10 mg PO BEDTIME PRN insomnia 03/09/25 03/09/25 Unknown History Exam Height,Weight and Vital Signs: Height 5 ft 3 in Assessment and Plan Assessment Anesthesia Assessment: Chart Reviewed Final Anesthetic Review Family History of Problems with Anesthesia: No History of Problems with Anesthesia: No Documented by User: Rogelio Emery MD 03/11/25 10:26 PMF Past Medical History Medical History (Updated 03/09/25 @ 14:13 by Ellen Castellon RN) Migraines Weight loss Family History Family History Father Hodgkin disease Surgical History Surgical History (Updated 03/09/25 @ 14:01 by Ellen Castellon RN) Hx laparoscopic cholecystectomy (08/28/23) History of esophagogastroduodenoscopy (EGD) Hx of tubal ligation Hx of laparoscopy Social History Social History Household Members: Family Housing: House Are you a primary healthcare interpreter to a significant other at home: No Do you presently have visiting nurse or other home services: No Alcohol intake: current Alcohol intake frequency: a few times a week Comment: counts correct Patient Tobacco Use Status: Never used Tobacco Have you been hit, kicked, punched, or otherwise hurt by someone within the past year? If so, by whom?: No Are you DNR?: No Advance Directives: No Advance Directives Information Provided: Yes service: No Meds Allergies Allergy/AdvReac Type Severity Reaction Status Date / Time Sulfa (Sulfonamide Allergy Mild Rash Verified 05/26/24 16:29 Antibiotics) Home Medications ?Medication ?Instructions ?Recorded ?Confirmed ?Last Taken ?Type paroxetine mesylate(menop.sym) 7.5 7.5 mg PO DAILY 05/27/24 03/09/25 05/27/24 08:00 History mg capsule vnxumksrui-khedojgmwqspd-doufslap 1 cap PO Q4H PRN headache 03/09/25 03/09/25 Unknown History 50 mg-300 mg-40 mg capsule cyclobenzaprine 15 mg 15 mg PO DAILY PRN muscle spasm 03/09/25 03/09/25 Unknown History capsule,extended release 24 hr zolpidem 10 mg tablet 10 mg PO BEDTIME PRN insomnia 03/09/25 03/09/25 Unknown History Exam Airway Mallampati Class: II TM Dist: <=3cm Neck ROM: Full Loose/Missing/Broken Teeth: No Heart: ok Lungs: ok Assessment and Plan Assessment Anesthesia Assessment: Anesthesia Plan Discussed Final Anesthetic Review NPO: Yes ASA Class: II Final Preanesthetic Review: No Changes in Pt Med Stat, Meds/Allgs Chart Reviewed, Consent Obtained/Reviewed and Anes Risks/Benef Reviewed Patient Risk: Low Procedure Risk: Intermediate Anesthetic Plan Anesthetic Plan: Agree w/ Assess. and Plan and TIVA Disposition: Standard PACU
[2025-03-10 15:17] VITALS: BMI 24.4
[2025-03-11 08:14] VITALS: BP 147/93; PULSE 94; RESP 20; TEMP 36.1; O2SAT 97; BMI 24.6
[2025-03-11] MEDS: Lactated Ringers 1,000 ML 100 ML IVCONT (08:32)
--- NOTE | 2025-03-11 08:37 | MHC.SHP ---
Pre-Procedural Eval Section A - 24 Hr Update-Section A only Date of Service: 03/11/25 Section B - Complete if H&P > 30 days Chief Complaint: Unspecified abdominal pain Relevant Family History (Specify if Yes): No Relevant Social History: None Present Medications: see Short Stay Collaborative assessment Medical History: Significant History ( Migraines Weight loss) History of Previous Operations: Relevant previous surgery/procedure and date(s) (Hx laparoscopic cholecystectomy (08/28/23) History of esophagogastroduodenoscopy (EGD) Hx of tubal ligation Hx of laparoscopy) Allergies: Allergies Allergy/AdvReac Type Severity Reaction Status Date / Time Sulfa (Sulfonamide Allergy Mild Rash Verified 05/26/24 16:29 Antibiotics) Family History Family History Father Hodgkin disease Family history of problems with anesthesia: No Surgical History Surgical History (Updated 03/09/25 @ 14:01 by Ellen Castellon RN) Review of Systems Sugical H&P ROS: Negative: Constitution, Cardiovascular, Respiratory, Neurological, Psychiatric, Hem-Onc, Allergic/Immunologic, Gastrointestinal, Genitourinary, Musculoskeletal, Integumentary, Endocrine and Eyes/Ears/Nose/Throat Exam Surgical H&P Exam: Normal: HEENT, Normal: Heart, Normal: Lungs, Normal: Extremities, Normal: Abdomen, Normal: Skin and Normal: Neurological Plan Diagnosis/Plan: Unchanged I have reviewed the history and physical and performed a pertinent physical examination on my patient. No changes have occurred unless specified. Time Spent With Patient Time: Total time managing care of this patient today ____ minutes.
--- NOTE | 2025-03-11 10:16 | HO.OPN-COLON ---
Colonoscopy Operative Note Operative Note Date of Service: 03/11/25 Narrative: Operative Information Procedure Description: EGD, Colonoscopy Indication: Abdominal pain Anesthesia: MAC FLEXIBLE TRANSORAL UPPER GASTROINTESTINAL ENDOSCOPY AND COLONOSCOPY PROCEDURE NOTE UPPER ENDOSCOPY Consent: Indications for the procedure and potential complications of bleeding, perforation, reaction to medications and missed diagnosis were discussed with the patient and informed consent was obtained. Instrument: Olympus GIF H 190 J mid size upper endoscope Monitoring: Vital signs and clinical assessment, continuous EKG monitoring, Pulse oximetry, Carbon Dioxide monitoring and blood pressure monitoring were done throughout the procedure. Procedure: The patient was placed in the left lateral decubitis position and pre-procedure medications were administered and a bite block was placed. The endoscope was inserted into the mouth and advanced under direct vision to the third part of duodenum. A careful inspection was made as the upper endoscope was withdrawn including a retroflexed examination of the proximal stomach; Findings and interventions are described below. Findings: Larynx:normal Esophagus: GE junction at 40 cm, diaphragm hiatus at 40 cm, esophagitis dissecans noted bx taken from GEJ, distal and proximal areas Stomach: patchy erythema. Biopsies were obtained. Grade 2 flap valve on retroflexed examination of the cardia. Duodenum: mild bulbar duodenitis - bx taken Intervention: Biopsies as noted above, COLONOSCOPY Instrument: Olympus variable stiffness pediatric scope 190L Colonoscopy Monitoring: Vital signs and clinical assessment, continuous EKG monitoring, Pulse oximetry, Carbon Dioxide monitoring and blood pressure monitoring were done throughout the procedure. Colon withdrawal time was 23 minutes. Procedure: The patient was placed in the left lateral decubitis position and pre-procedure medications were administered. After a digital rectal examination of the ano-rectum, the video colonoscope was inserted into the rectum and advanced through the colon to the cecum/TI. The colonoscope was slowly withdrawn in a retrograde panoramic fashion and the colon mucosa was carefully examined including a retroflexed view of the rectum. Findings and interventions are described below. Procedure Difficulty:moderate Findings: Terminal Ileum-normal, bx taken random bx taken from right and left colon Cecum:normal Ascending Colon: 10 mm sessile polyp lifted with eleview and removed with cold snare Transverse Colon -normal Descending Colon:normal Sigmoid Colon: normal Rectum: Retroflexion with small internal hemorrhoids, grade I, 10 mm sessile polyp removed with cold snare Anorectum - normal Colon preparation: Mermentau Bowel Preparation Scale Right colon; 2 Transverse colon: 2 Left colon; 2 (0 = Unprepared colon segment with mucosa not seen due to solid stool that cannot be cleared. 1 = Portion of mucosa of the colon segment seen, but other areas of the colon segment not well seen due to staining, residual stool and/or opaque liquid. 2 = Minor amount of residual staining, small fragments of stool and/or opaque liquid, but mucosa of colon segment seen well. 3 = Entire mucosa of colon segment seen well with no residual staining, small fragments of stool or opaque liquid) Impression and Post Procedure Diagnosis: Endoscopy Findings: gastritis esophagitis duodenitis Colonoscopy Findings: colon polyps x 2 internal hemorrhoids Plan: Await Pathology results Repeat Colonoscopy in 5 years due to polyps or earlier if clinically indicated High fiber diet leaflet avoid straining at stool, epsom salts and sitz bath, anusol supps or cream may need PPI Above findings were reviewed with the patient and relevant handouts were provided if indicated.
[2025-03-11 10:22] VITALS: BP 108/56; PULSE 71; RESP 18; TEMP 36.1; O2SAT 97
[2025-03-11 10:29] VITALS: BP 112/63; PULSE 66; RESP 16; O2SAT 100
[2025-03-11 10:44] VITALS: BP 120/69; PULSE 66; RESP 16; O2SAT 99
[2025-03-11 10:53] VITALS: BP 138/87; PULSE 67; RESP 16; TEMP 36.3; O2SAT 99
--- NOTE | 2025-03-11 11:36 | PC.NURSE ---
Simethicone 80mg [address] Pereira at 11:11. Written order faxed to pharmacy.
== END 2025-03-11 11:49 | disposition home or self-care (01) ==
PROVIDERS: PCP Family Medicine; Visit Provider Internal Medicine Gastroenterology
PROC: (CPT 45385; principal; 2025-03-11 10:10)
DX: R10.9 Unspecified abdominal pain (principal); K63.5 Polyp of colon; K62.1 Rectal polyp; K64.0 First degree hemorrhoids; K29.50 Unspecified chronic gastritis without bleeding; K20.80 Other esophagitis without bleeding; K29.80 Duodenitis without bleeding; K44.9 Diaphragmatic hernia without obstruction or gangrene; R63.4 Abnormal weight loss; Z68.25 Body mass index [BMI] 25.0-25.9, adult; Z79.899 Other long term (current) drug therapy; Z88.2 Allergy status to sulfonamides; Z90.49 Acquired absence of other specified parts of digestive tract; Z98.890 Other specified postprocedural states; Z79.85 Long-term (current) use of injectable non-insulin antidiabetic drugs
CPT/HCPCS: 45385; 45380; 45381; 43239; 88305; 88313; 88342; J2003; J2704

== ENCOUNTER → 2025-03-11 07:57 | Outpatient (BNV) | payer OTHER, SELFPAY | PROVIDERS: PCP Family Medicine; Visit Provider Internal Medicine Gastroenterology | DX: R10.9 Unspecified abdominal pain (principal); K20.80 Other esophagitis without bleeding; K29.70 Gastritis, unspecified, without bleeding; K29.80 Duodenitis without bleeding; D12.2 Benign neoplasm of ascending colon; D12.8 Benign neoplasm of rectum; K64.0 First degree hemorrhoids | CPT/HCPCS: 43239; 45385 ==

== ENCOUNTER 2025-03-15 15:44 | Outpatient (REF) | payer OTHER, SELFPAY ==
--- NOTE | ~2025-03-15 | XR_ITS ---
EXAMINATION: XR ABDOMEN KUB CLINICAL INDICATION: R10.9 - Unspecified abdominal pain COMPARISON: None available. TECHNIQUE: AP view of the abdomen. FINDINGS: Stool throughout the nondilated large intestine. No air-fluid levels. Vascular clips right upper quadrant abdomen and probable status post tubal ligation bilaterally. Levoconvex curvature of the lumbar spine with the facet joint hypertrophy at L4-5 and L5-S1. No calcifications overlapping the kidney shadows. Degenerative changes in the coxofemoral joints and sacroiliac joints. XR/XR KUB IMPRESSION: Abundant stool without intestinal obstruction pattern. Spondylosis and levoconvex scoliosis, lumbar spine. Electronically signed by: Javed Francis MD 03/15/2025 04:00 PM EDT
--- OUTSIDE RECORDS SUMMARY | 2025-03-15 18:33 | XMS_ITS | Encounter Summary ---
Author Organization [facility] Address [address] [place] [phone] Phone Care Team Providers Care Food Service Hotel Runner Name Role Phone Mckay Stokes MD Primary Care Provider + Encounter Details Date Type Department Care Team (Latest Contact Info) Description 10/03/2023 Transcribe Orders Virtual Department [address] [place] [phone] Mckay Stokes MD [address] [place] [address] Breast screening (Primary Dx) Social History Tobacco [...] st Contact Info) Description 09/28/2024 Procedure Pass [address] [place] [address] 04/07/2025 2:30 PM EDT Appointment [address] [place] [address] Mckay Stokes MD [address] [place] [address] [phone] documented as of this encounter Results * [...] unspecified documented in this encounter Care Teams Food Service Hotel Runner Relationship Specialty Start Date End Date Mckay Stokes MD [address] [place] [phone] PCP - General Family Medicine 12/11/19 documented as of this encounter Additional Source Comments The information contained in this document represents components of the legal health record. It is not the complete legal health record.[facility]
--- OUTSIDE RECORDS SUMMARY | 2025-03-15 18:33 | XMS_ITS | Encounter Summary ---
Author Organization [facility] Address [address] [place] [address] Phone Care Team Providers Care Career Services Coordinator Name Role Phone Mckay Stokes MD Primary Care Provider + Encounter Details Date Type Department Care Team (Late st Contact Info) Description 09/27/2022 Procedure Pass [address] [place] [address] Social History Tobacco Use Types Packs/Day Years [...] Contact Info) Description 09/28/2024 Procedure Pass [address] [place] [address] 04/07/2025 2:30 PM EDT Appointment [address] [place] [address] Mckay Stokes MD [address] [place] [phone] documented as of this encounter Visit Diagnoses Not on filedocumented in this encounter Care Teams Career Services Coordinator Relationship Specialty Start Date End Date Mckay Stokes MD [address] [place] [phone] PCP - General Family Medicine 12/11/19 documented as of this encounter Additional Source Comments The information contained in this document represents components of the legal health record. It is not the complete legal health record.[facility]
--- OUTSIDE RECORDS SUMMARY | 2025-03-15 18:33 | XMS_ITS | Encounter Summary ---
Author Organization [facility] Address [address] [place] [address] Phone Care Team Providers Care Shook Machine Operator Name Role Phone Mckay Stokes MD Primary Care Provider + Encounter Details Date Type Department Care Team (Late st Contact Info) Description 10/03/2023 Procedure Pass [address] [place] [address] Social History Tobacco Use Types Packs/Day Years [...] st Contact Info) Description 09/28/2024 Procedure Pass [address] [place] [address] 04/07/2025 2:30 PM EDT Appointment [address] [place] [address] Mckay Stokes MD [address] [place] [address] documented as of this encounter Visit Diagnoses Not on filedocumented in this encounter Care Teams Shook Machine Operator Relationship Specialty Start Date End Date Mckay Stokes MD [address] [place] [phone] PCP - General Family Medicine 12/11/19 documented as of this encounter Additional Source Comments The information contained in this document represents components of the legal health record. It is not the complete legal health record.[facility]
--- OUTSIDE RECORDS SUMMARY | 2025-03-15 18:33 | XMS_ITS | Encounter Summary ---
Author Organization [facility] Address [address] [place] [address] Phone Care Team Providers Care Senior Energy Trader Name Role Phone Unknown, Unknown Primary Care Provider Mckay Engle MD Primary Care Provider + Encounter Details Date Type Department Care Team (Late st Contact Info) Description 07/30/2019 Ancillary Orders [facility],Outside Imaging [address] [place] [address] System, Provider Not In, [place] [address] Social History Tobacco Use Types Packs/Day Years [...] (Late Contact Info) Description 09/28/2024 Procedure Pass [address] [place] [address] 04/07/2025 2:30 PM EDT Appointment [address] [place] [address] Mckay Stokes MD [address] [place] [address] [phone] documented as of this encounter Results * Mammogram Outside (No Interpretation) (07/31/2018 12:00 AM EST) Narrative SYSTEMGENERATED, DOCUMENTATION - 07/30/2019 1:34 PM EST This study is for PACS storage only and not for interpretation. us Provider Not In System PhD IMG OUTSIDE IMAGING W /OUT INTERPRETATION Final Result documented in this encounter Visit Diagnoses Not on filedocumented in this encounter Care Teams Senior Energy Trader Relationship Specialty Start Date End Date Unknown, Unknown, MD PCP - General 05/04/19 12/10/19 Mckay Stokes MD [address] [place] [address] PCP - General Family Medicine 12/11/19 documented as of this encounter Additional Source Comments The information contained in this document represents components of the legal health record. It is not the complete legal health record.[facility]
--- OUTSIDE RECORDS SUMMARY | 2025-03-15 18:33 | XMS_ITS | Encounter Summary ---
Author Organization [facility] Address [address] [place] [address] Phone Care Team Providers Care Solution Analyst Name Role Phone Mckay Stokes MD Primary Care Provider + Encounter Details Date Type Department Care Team (Late st Contact Info) Description 08/30/2021 Procedure Pass [address] [place] [address] Social History Tobacco Use Types Packs/Day Years [...] st Contact Info) Description 09/28/2024 Procedure Pass [address] [place] [address] 04/07/2025 2:30 PM EDT Appointment [address] [place] [address] Mckay Stokes MD [address] [place] [phone] documented as of this encounter Visit Diagnoses Not on filedocumented in this encounter Care Teams Solution Analyst Relationship Specialty Start Date End Date Mckay Stokes MD [address] [place] [phone] PCP - General Family Medicine 12/11/19 documented as of this encounter Additional Source Comments The information contained in this document represents components of the legal health record. It is not the complete legal health record.[facility]
--- OUTSIDE RECORDS SUMMARY | 2025-03-15 18:33 | XMS_ITS | Clinical Summary ---
Author Organization [facility] Address [address] [place] [address] Phone Care Team Providers Care General Maintenance Technician Name Role Phone Mckay Stokes MD [...] Contact Info) Description 09/28/2024 Procedure Pass [address] [place] [address] 04/07/2025 2:30 PM EDT Appointment [address] [place] [address] Mckay Stokes MD [address] [place] [address] Health Maintenance Due Date Last Done Comments LIPID PANEL 1970 DEPRESSION SCREENING 1980 HEPATITIS C SCREENING 1986 HIV ONE-TIME SCREENING (18-65 YEARS) 1986 SCREENING FOR DIABETES 11/03/2003 COLOGUARD 2013 COLONOSCOPY 2013 COLORECTAL CANCER SCREENING 2013 FIT TEST 2013 FOBT 2013 SIGMOIDOSCOPY 2013 VIRTUAL COLONOSCOPY 2013 PNEUMOCOCCAL VACCINES (50+ years) (1 of 1 - PCV) 2018 ZOSTER VACCINES (1 of 2) 2018 INFLUENZA VACCINE (#1) 2025 , 05/10/2023, 04/26/2022, Additional history exists COVID-19 VACCINE (2024- season) 2025 08/17/2020, 07/27/2020 MAMMOGRAM 12/10/2025 12/11/2023, 10/06, 09/28/2021, Additional history [...] SEE NARRATIVE - 10/08/2024 1:41 PM EDT [address] [address] Information Receptionist: Mele Soliman MD LIQUOR GRINDING MILL OPERATOR Cytology Report FINAL DIAGNOSIS A. PAP SMEAR (THIN PREP) CE: SPECIMEN ADEQUACY: Satisfactory for evaluation; transformation zone present. INTERPRETATION: NEGATIVE FOR INTRAEPITHELIAL LESION OR MALIGNANCY. Reactive changes. This specimen was analyzed by the automated ThinPrep Imaging System (Actively Learn.) and manually rescreened by a electronics worker and/or pathologist. Electronically Signed Out By: ABHI [...] by real-time polymerase chain reaction (PCR) at [facility], [address] [place] [address], [place], [place] using the FDA-approved BD Onclarity9 HPV Assay with extended genotyping. Uses of the assay in scenarios other than those approved by the FDA should be considered off-label use. The accuracy and precision of this test for all other off-label specimen sources has been verified in the Cytopathology Laboratory of the [facility] and has not been cleared or [...] : 1970 (Age: 53) Sex: F Institution: [facility] Location: [facility] Date of Collection: 10/02/2024 Date of Reported: [...] Most Recently Relevant to Health Maintenance Insurance [facility] TOTAL CHOICE INDEMNITY JACK RICHARDSON [id number] [employer] [facility] TOTAL CHOICE INDEMNITY [employer] [facility] TOTAL CHOICE INDEMNITY [employer] [facility] TOTAL CHOICE [place]DEMN[place] [address] [address] TOTAL CHOICE INDEMNITY [facility] TOTAL CHOICE INDEMNITY [employer] [facility] TOTAL CHOICE INDEMNITY [employer] [facility] TOTAL CHOICE INDEMNITY [employer] [facility] TOTAL CHOICE INDEMNITY [facility] Care Teams General Maintenance Technician Relationship Specialty Start Date End Date Mckay Stokes MD [address] [place] [phone] PCP - General Family Medicine 12/11/19 Additional Source Comments The information contained in this document represents components of the legal health record. It is not the complete legal health record.[facility]
--- OUTSIDE RECORDS SUMMARY | 2025-03-15 18:33 | XMS_ITS | Encounter Summary ---
Author Organization [facility] Address [address] [place] [address] Phone Care Team Providers Care Bus Van Driver Name Role Phone Unknown, Unknown Primary Care Provider Mckay Engle MD Primary Care Provider + Encounter Details Date Type Department Care Team (Late st Contact Info) Description 07/30/2019 Ancillary Orders [facility],Outside Imaging [address] [place] [address] System, Provider Not In, [place] [address] Social History Tobacco Use Types Packs/Day Years [...] (Late Contact Info) Description 09/28/2024 Procedure Pass [address] [place] [address] 04/07/2025 2:30 PM EDT Appointment [address] [place] [address] Mckay Stokes MD [address] [place] [address] [phone] documented as of this encounter Results * US Breast Outside (No Interpretation) (07/31/2018 12:05 AM EST) Narrative SYSTEMGENERATED, DOCUMENTATION - 07/30/2019 1:35 PM EST This study is for PACS storage only and not for interpretation. us Provider Not In System PhD IMG OUTSIDE IMAGING W /OUT INTERPRETATION Final Result documented in this encounter Visit Diagnoses Not on filedocumented in this encounter Care Teams Bus Van Driver Relationship Specialty Start Date End Date Unknown, Unknown, MD PCP - General 05/04/19 12/10/19 Mckay Stokes MD [address] [place] [phone] PCP - General Family Medicine 12/11/19 documented as of this encounter Additional Source Comments The information contained in this document represents components of the legal health record. It is not the complete legal health record.[facility]
--- OUTSIDE RECORDS SUMMARY | 2025-03-15 18:33 | XMS_ITS | Encounter Summary ---
Author Organization [facility] Address [address] [place] [address] Phone Care Team Providers Care Cadd Drafter Name Role Phone Mckay Stokes MD Primary Care Provider + Encounter Details Date Type Department Care Team (Latest Contact Info) Description 09/27/2022 Transcribe Orders Virtual Department [address] [place] [address] Kirti Hernández MD [address] [place] [address] [address] [place] [address] [email or web address] Breast screening (Primary Dx) Social History Tobacco [...] st Contact Info) Description 09/28/2024 Procedure Pass [address] [place] [address] 04/07/2025 2:30 PM EDT Appointment [address] [place] [address] Mckay Stokes MD [address] [place] [phone] documented as of this encounter Results * [...] unspecified documented in this encounter Care Teams Cadd Drafter Relationship Specialty Start Date End Date Mckay Stokes MD [address] [place] [phone] PCP - General Family Medicine 12/11/19 documented as of this encounter Additional Source Comments The information contained in this document represents components of the legal health record. It is not the complete legal health record.[facility]
--- OUTSIDE RECORDS SUMMARY | 2025-03-15 18:34 | XMS_ITS | Encounter Summary ---
Author Organization [facility] Address [address] [place] [address] Phone Care Team Providers Care Manager Exchange Name Role Phone Unknown, Unknown Primary Care Provider Mckay Engle MD Primary Care Provider + Encounter Details Date Type Department Care Team (Late st Contact Info) Description 07/30/2019 Ancillary Orders [facility],Outside Imaging [address] [place] [address] System, Provider Not In, [place] [address] Social History Tobacco Use Types Packs/Day Years [...] (Late Contact Info) Description 09/28/2024 Procedure Pass [address] [place] [address] 04/07/2025 2:30 PM EDT Appointment [address] [place] [address] Mckay Stokes MD [address] [place] [address] [phone] documented as of this encounter Results * US Breast Outside (No Interpretation) (07/26/2017 12:05 AM EST) Narrative SYSTEMGENERATED, DOCUMENTATION - 07/30/2019 1:37 PM EST This study is for PACS storage only and not for interpretation. us Provider Not In System PhD IMG OUTSIDE IMAGING W /OUT INTERPRETATION Final Result documented in this encounter Visit Diagnoses Not on filedocumented in this encounter Care Teams Manager Exchange Relationship Specialty Start Date End Date Unknown, Unknown, MD PCP - General 05/04/19 12/10/19 Mckay Stokes MD [address] [place] [phone] PCP - General Family Medicine 12/11/19 documented as of this encounter Additional Source Comments The information contained in this document represents components of the legal health record. It is not the complete legal health record.[facility]
--- OUTSIDE RECORDS SUMMARY | 2025-03-15 18:34 | XMS_ITS | Encounter Summary ---
Author Organization [facility] Address [address] [place] [address] Phone Care Team Providers Care Emergency Department Physician Name Role Phone Unknown, Unknown Primary Care Provider Mckay Engle MD Primary Care Provider + Encounter Details Date Type Department Care Team (Late st Contact Info) Description 07/30/2019 Ancillary Orders [facility],Outside Imaging [address] [place] [address] System, Provider Not In, [place] [address] Social History Tobacco Use Types Packs/Day Years [...] (Late Contact Info) Description 09/28/2024 Procedure Pass [address] [place] [address] 04/07/2025 2:30 PM EDT Appointment [address] [place] [address] Mckay Stokes MD [address] [place] [address] [phone] documented as of this encounter Results * US Breast Outside (No Interpretation) (03/15/2016 12:00 AM EDT) Narrative SYSTEMGENERATED, DOCUMENTATION - 07/30/2019 1:38 PM EST This study is for PACS storage only and not for interpretation. us Provider Not In System PhD IMG OUTSIDE IMAGING W /OUT INTERPRETATION Final Result documented in this encounter Visit Diagnoses Not on filedocumented in this encounter Care Teams Emergency Department Physician Relationship Specialty Start Date End Date Unknown, Unknown, MD PCP - General 05/04/19 12/10/19 Mckay Stokes MD [address] [place] [phone] PCP - General Family Medicine 12/11/19 documented as of this encounter Additional Source Comments The information contained in this document represents components of the legal health record. It is not the complete legal health record.[facility]
--- OUTSIDE RECORDS SUMMARY | 2025-03-15 18:34 | XMS_ITS | Encounter Summary ---
Author Organization [facility] Address [address] [place] [phone] Phone Care Team Providers Care Curtain Inspector Name Role Phone Unknown, Unknown Primary Care Provider Mckay Engle MD Primary Care Provider + Encounter Details Date Type Department Care Team (Late st Contact Info) Description 07/30/2019 Ancillary Orders [facility],Outside Imaging [address] [place] [address] System, Provider Not In, [place] [address] Social History Tobacco Use Types Packs/Day Years [...] (Late Contact Info) Description 09/28/2024 Procedure [address] [place] [address] 04/07/2025 2:30 PM EDT Appointment [address] [place] [address] Mckay Stokes MD [address] [place] [address] [phone] documented as of this encounter Results * Mammogram Outside (No Interpretation) (03/15/2016 12:05 AM EDT) Narrative SYSTEMGENERATED, DOCUMENTATION - 07/30/2019 1:38 PM EST This study is for PACS storage only and not for interpretation. us Provider Not In System PhD IMG OUTSIDE IMAGING W /OUT INTERPRETATION Final Result documented in this encounter Visit Diagnoses Not on filedocumented in this encounter Care Teams Curtain Inspector Relationship Specialty Start Date End Date Unknown, Unknown, MD PCP - General 05/04/19 12/10/19 Mckay Stokes MD [address] [place] [phone] PCP - General Family Medicine 12/11/19 documented as of this encounter Additional Source Comments The information contained in this document represents components of the legal health record. It is not the complete legal health record.[facility]
--- OUTSIDE RECORDS SUMMARY | 2025-03-15 18:34 | XMS_ITS | Encounter Summary ---
Author Organization [facility] Address [address] [place] [address] Phone Care Team Providers Care Fire Extinguisher Sprinkler Inspector Name Role Phone Mckay Stokes MD Primary Care Provider + Encounter Details Date Type Department Care Team (Latest Contact Info) Description 09/28/2024 Transcribe Orders Virtual Department [address] [place] [address] Mckay Stokes MD [address] [place] [phone] Breast screening (Primary Dx) Social History Tobacco [...] Contact Info) Description 09/28/2024 Procedure Pass [address] [place] [address] 04/07/2025 2:30 PM EDT Appointment [address] [place] [address] Mckay Stokes MD [address] [place] [address] Scheduled Orders Name Type Priority Associated Diagnoses Orde r Schedule Mammogram Screening (Bilateral) Imaging Routine Breast screening Expected: 10/29/2024, Expires: 09/28/2025 documented as of this encounter Visit Diagnoses Diagnosis Breast screening- Primary Breast screening, unspecified documented in this encounter Care Teams Fire Extinguisher Sprinkler Inspector Relationship Specialty Start Date End Date Mckay Stokes MD [address] [place] [address] [phone] PCP - General Family Medicine 12/11/19 documented as of this encounter Additional Source Comments The information contained in this document represents components of the legal health record. It is not the complete legal health record.[facility]
--- OUTSIDE RECORDS SUMMARY | 2025-03-15 18:34 | XMS_ITS | Encounter Summary ---
Author Organization [facility] Address [address] [place] [phone] Phone Care Team Providers Care Tool Dresser Name Role Phone Mckay Stokes MD Primary Care Provider + Encounter Details Date Type Department Care Team (Late st Contact Info) Description 07/08/2020 Procedure Pass [address] [place] [address] Social History Tobacco Use Types Packs/Day Years [...] st Contact Info) Description 09/28/2024 Procedure Pass [address] [place] [address] 04/07/2025 2:30 PM EDT Appointment [address] [place] [address] Mckay Stokes MD [address] [place] [phone] documented as of this encounter Visit Diagnoses Not on filedocumented in this encounter Care Teams Tool Dresser Relationship Specialty Start Date End Date Mckay Stokes MD [address] [place] [id number] PCP - General Family Medicine 12/11/19 documented as of this encounter Additional Source Comments The information contained in this document represents components of the legal health record. It is not the complete legal health record.[facility]
--- OUTSIDE RECORDS SUMMARY | 2025-03-15 18:34 | XMS_ITS | Encounter Summary ---
Author Organization [facility] Address [address] [place] [phone] Phone Care Team Providers Care Senior Marketing Coordinator Name Role Phone Unknown, Unknown Primary Care Provider Mckay Engle MD Primary Care Provider + Encounter Details Date Type Department Care Team (Late st Contact Info) Description 07/30/2019 Ancillary Orders [facility],Outside Imaging [address] [place] [address] System, Provider Not In, [place] [address] Social History Tobacco Use Types Packs/Day Years [...] (Late Contact Info) Description 09/28/2024 Procedure Pass [address] [place] [address] 04/07/2025 2:30 PM EDT Appointment [address] [place] [address] Mckay Stokes MD [address] [place] [address] [phone] documented as of this encounter Results * Mammogram Outside (No Interpretation) (07/26/2017 12:00 AM EST) Narrative SYSTEMGENERATED, DOCUMENTATION - 07/30/2019 1:36 PM EST This study is for PACS storage only and not for interpretation. us Provider Not In System PhD IMG OUTSIDE IMAGING W /OUT INTERPRETATION Final Result documented in this encounter Visit Diagnoses Not on filedocumented in this encounter Care Teams Senior Marketing Coordinator Relationship Specialty Start Date End Date Unknown, Unknown, MD PCP - General 05/04/19 12/10/19 Mckay Stokse MD [address] [place] [phone] PCP - General Family Medicine 12/11/19 documented as of this encounter Additional Source Comments The information contained in this document represents components of the legal health record. It is not the complete legal health record.[facility]
== END 2025-03-15 15:45 | disposition home or self-care (01) ==
LOC: HO.XRAY 15:44
PROVIDERS: PCP Family Medicine; Visit Provider Internal Medicine Gastroenterology
DX: R10.9 Unspecified abdominal pain (principal)
CPT/HCPCS: 74018

== ENCOUNTER → 2025-03-15 15:48 | Outpatient (BNV) | payer OTHER, SELFPAY | PROVIDERS: PCP Family Medicine; Visit Provider Radiology Diagnostic Radiology | DX: K59.00 Constipation, unspecified (principal) | CPT/HCPCS: 74018 ==